=== PATIENT | female | born 1970 | race Caucasian/White ===

== ENCOUNTER 2018-05-02 18:02 | Inpatient (IN) ==
[2018-05-02 18:19] LABS: ABG Base Excess -8.9 mmol/L (-2-2); ABG PCO2 44 mmHg (38-42); ABG PO2 360 mmHg (61-120)
[2018-05-02 18:24] LABS: Baso % (Auto) 0.4 % (0.0-2.0); Eos % (Auto) 0.1 % (0.0-4.0); Hematocrit 36.7 % (35.0-46.0); Hemoglobin 10.8 gm/dL (11.6-15.3); Lymph # (Auto) 0.8 th/mm3 (1.0-4.8); Lymph % (Auto) 10.5 % (9.0-44.0); Mean Corpuscular Hemoglobin 27.8 pg (27.0-34.0); Mean Corpuscular Volume 94.4 fL (80.0-100.0); Mean Platelet Volume 8.6 fL (7.0-11.0); Mono # (Auto) 0.1 th/mm3 (0.0-0.9); Mono % (Auto) 1.8 % (0.0-8.0); Neut # (Auto) 6.6 th/mm3 (1.8-7.7); Neut % (Auto) 87.2 % (16.0-70.0); Platelet Count 331 th/mm3 (150-450); Red Blood Count 3.89 mil/mm3 (4.00-5.30); Red Cell Distribution Width 19.2 % (11.6-17.2); White Blood Count 7.6 th/mm3 (4.0-11.0)
[2018-05-02] MEDS ORDERED: Sodium Bicarbonate 8.4% Inj 50 MEQ/50 ML Syringe ONE ×2 (18:29)
[2018-05-02 18:35] LABS: Mean Corpuscular HGB Conc 29.5 % (32.0-36.0)
[2018-05-02 18:36] LABS: Activated Partial Thrombo Time 25.7 sec (23.4-31.7); INR 1.3 Ratio
[2018-05-02] MEDS ORDERED: RESP: Albuterol Concentrated 2.5 MG/0.5 ML Neb NEB ONE (18:41)
[2018-05-02 18:45] LABS: Anion Gap 20 meq/L (5-15)
[2018-05-02 18:47] LABS: Blood Urea Nitrogen 93 mg/dL (7-18); Calcium 8.5 mg/dL (8.5-10.1); Carbon Dioxide 13.7 meq/L (21.0-32.0); Chloride 86 meq/L (98-107); Glomerular Filtration Rate 3 mL/min (>89)
[2018-05-02 18:48] LABS: Creatine Kinase 65 U/L (26-192)
[2018-05-02 18:49] LABS: Glucose,Random 705 mg/dL (74-106); Potassium 8.6 meq/L (3.5-5.1); Sodium 120 meq/L (136-145)
--- NOTE | 2018-05-02 18:51 | ED ---
HPI General Chief Complaint: Cardiac Arrest/CPR Stated Complaint: unconscience Time Seen by Provider: 05/02/18 18:07 Source: EMS Mode of arrival: EMS Limitations: physical limitation History of Present Illness HPI narrative: Approximately 47-year-old female arrives post cardiac arrest. She was in asystole and given 1 epinephrine and had spontaneous return of circulation with an adequate blood pressure. She was intubated with good end- tidal CO2. It was a witnessed cardiac arrest with family performing immediate CPR prior to EMS arrival. History limited given clinical acuity Related Data Allergies Allergy/AdvReac Type Severity Reaction Status Date / Time codeine Allergy Hives Verified 05/02/18 19:45 iodine Allergy Hives Verified 05/02/18 19:45 lisinopril Allergy Hives Verified 05/02/18 19:45 Penicillins Allergy Hives Verified 05/02/18 19:45 vancomycin Allergy Hives Verified 05/02/18 19:45 Review of Systems ROS Unobtainable ROS Unobtainable: unobtainable due to endotracheal tube PMFSH History History Provided By: Wall Scraper / EMT (diabetes, renal failure) Medical History Medical History Medical history unknown (Acute) Surgical history unknown (Acute) Social History Social History Substance History: Unable to Obtain Smoking Status: Unknown if ever smoked How Often Do You Have a Drink Containing Alcohol: Unable to Obtain Recent Travel in [facility] within the Last 8 Weeks: No Recent Out of Country Travel within the Last 8 Weeks: No Immunization History Tetanus Immunization: Unable to Assess Exam Narrative Exam Narrative: GENERAL: 47 windy y/o female who appears chronically ill SKIN: Focused skin assessment warm/dry. HEAD: Normocephalic. EYES: Pupils equal 3mm. No scleral icterus. No injection or drainage. ENT: No nasal bleeding or discharge. NECK: Trachea midline. CARDIOVASCULAR: Regular rate and rhythm. RESPIRATORY: No accessory muscle use. Clear to auscultation. Breath sounds equal bilaterally. GASTROINTESTINAL: Abdomen nondistended. MUSCULOSKELETAL: No obvious deformities, right leg surgery noted NEUROLOGICAL: Unresponsive Course Reevaluation(s) Reevaluation #1: Patient had an episode of PEA arrest shortly after arrival he did she was given bicarb and calcium and epinephrine and had return of circulation. After patient was stabilized mother came to bedside and stated that patient asked for oxygen to be turned up and then went unresponsive and CPR was initiated. She confirms her past medical history and states that she is on home oxygen. She was updated about current critical condition and understands. All questions answered. Family states Dr. Kelley is her party plan sales consultant Consultations Consultation #1: dr blount agrees to admit Consultation #2: dr marsh will arrange emergent dialysis Initial Documented Vital Signs Pulse Oximetry 100 05/02/18 18:02 Last Documented Vital Signs Pulse Rate 92 H 05/02/18 19:15 Respiratory Rate 14 05/02/18 18:54 Blood Pressure 154/68 H 05/02/18 19:15 Pulse Oximetry 100 05/02/18 19:15 Critical Care Time Critical Care Time: Yes Total Critical Care Time: 60 Attestation: Aggregate critical care time was 60 minutes. Time to perform other separately billable procedures was not included in the critical care time. My time did not include minutes spent treating any other patients simultaneously or on activities that did not directly contribute to the patient's treatment. The services I provided to this patient were to treat and/or prevent clinically significant deterioration that could result in: Cardiac arrest, respiratory failure, I provided critical care services requiring my management, as noted below: Chart data review, documentation time, medication orders and management, vital sign assessments/reviewing monitor data, ordering and reviewing lab tests, ordering and interpreting/reviewing x-rays and diagnostic studies, care of the patient and discussion of the patient with the admitting physicians. Medical Decision Making MDM Narrative Medical decision making narrative: Patient arrived post asystole cardiac arrest. Shortly after arrival went into PEA. Was given 2 epinephrine, 2 calcium and 4 bicarb with return of spontaneous circulation. I stats were sent , EKG done and chest x-ray performed. ET tube in place, patient with critical hyperkalemia of 8.6. Family states patient's party plan sales consultant is Dr. Andrea Delvalle. Dr. Marsh on-call will arrange stat bedside dialysis. Medical Screen Exam Complete: Yes Emergency Medical Condition: Yes Differential Diagnosis Differential Diagnosis: Hyperkalemia, [place], PE Lab Data Lab results reviewed: Yes I reviewed the patient's lab results. Result diagrams: 05/02/18 18:08 05/02/18 18:08 Lab Results 05/02/18 05/02/18 05/02/18 Range/Units 18:08 18:08 18:08 WBC 7.6 (4.0-11.0) th/mm3 RBC 3.89 L (4.00-5.30) mil/mm3 Hgb 10.8 L (11.6-15.3) gm/dL POC Hgb (Calc) 12.9 (11.6-15.3) g/dL Hct 36.7 (35.0-46.0) % POC Hct 38.0 (35-46.0) % MCV 94.4 (80.0-100.0) fL MCH 27.8 (27.0-34.0) pg MCHC 29.5 L (32.0-36.0) % RDW 19.2 H (11.6-17.2) % Plt Count 331 (150-450) th/mm3 MPV 8.6 (7.0-11.0) fL Neut % (Auto) 87.2 H (16.0-70.0) % Lymph % (Auto) 10.5 (9.0-44.0) % Pratt % (Auto) 1.8 (0.0-8.0) % Eos % (Auto) 0.1 (0.0-4.0) % Baso % (Auto) 0.4 (0.0-2.0) % Neut # (Auto) 6.6 (1.8-7.7) th/mm3 Lymph # (Auto) 0.8 L (1.0-4.8) th/mm3 Pratt # (Auto) 0.1 (0.0-0.9) th/mm3 Eos # (Auto) 0.0 (0.0-0.4) th/mm3 Baso # (Auto) 0.0 (0.0-0.2) th/mm3 WBC Differential . Differential Comment Auto diff final PT 13.0 H (9.8-11.6) sec INR 1.3 Ratio APTT 25.7 (23.4-31.7) sec Puncture Site Patient Temperature O2 Saturation (90-100) % ABG pH (7.380-7.420) ABG pCO2 (38-42) mmHg ABG pO2 (61-120) mmHg ABG HCO3 (22-26) mmol/L ABG O2 Content (12.0-20.0) Vol % ABG Base Excess (-2-2) mmol/L ABG Methemoglobin (0-2) % Norberto Test Hemoglobin (12.0-16.0) G/DL Carboxyhemoglobin (0-4) % O2 Delivery Device Liter Flow L/M Inspired O2 % Critical Value POC Sodium 121 L* (137-144) mmol/L Sodium 120 L* (136-145) meq/L POC Potassium 8.6 H* (3.6-5.0) mmol/L Potassium 8.6 H* (3.5-5.1) meq/L POC Chloride Not Reportable Chloride 86 L (98-107) meq/L Carbon Dioxide 13.7 L (21.0-32.0) meq/L Anion Gap 20 H (5-15) meq/L POC BUN 102 H (5-21) mg/dL BUN 93 H (7-18) mg/dL Creatinine 11.06 H* (0.50-1.00) mg/dL POC Creatinine 10.7 H* (0.6-1.3) mg/dL Estimated GFR 3 L (>89) mL/min POC Glucose 695 H* (68-110) mg/dL Random Glucose 705 H* (74-106) mg/dL Lactic Acid (0.4-2.0) mmol/L Calcium 8.5 (8.5-10.1) mg/dL Magnesium (1.5-2.5) mg/dL Total Creatine Kinase 65 (26-192) U/L Troponin I Less than 0.02 L (0.02-0.05) ng/mL Serum Alcohol Less than 3 (0-5) mg/dL Blood Type Antibody Screen 05/02/18 05/02/18 05/02/18 Range/Units 18:08 18:08 18:08 WBC (4.0-11.0) th/mm3 RBC (4.00-5.30) mil/mm3 Hgb (11.6-15.3) gm/dL POC Hgb (Calc) (11.6-15.3) g/dL Hct (35.0-46.0) % POC Hct (35-46.0) % MCV (80.0-100.0) fL MCH (27.0-34.0) pg MCHC (32.0-36.0) % RDW (11.6-17.2) % Plt Count (150-450) th/mm3 MPV (7.0-11.0) fL Neut % (Auto) (16.0-70.0) % Lymph % (Auto) (9.0-44.0) % Pratt % (Auto) (0.0-8.0) % Eos % (Auto) (0.0-4.0) % Baso % (Auto) (0.0-2.0) % Neut # (Auto) (1.8-7.7) th/mm3 Lymph # (Auto) (1.0-4.8) th/mm3 Pratt # (Auto) (0.0-0.9) th/mm3 Eos # (Auto) (0.0-0.4) th/mm3 Baso # (Auto) (0.0-0.2) th/mm3 WBC Differential Differential Comment PT (9.8-11.6) sec INR Ratio APTT (23.4-31.7) sec Puncture Site Left brachial Patient Temperature 98.6 O2 Saturation 93 (90-100) % ABG pH 7.22 L* (7.380-7.420) ABG pCO2 44 H (38-42) mmHg ABG pO2 360 H (61-120) mmHg ABG HCO3 17 L (22-26) mmol/L ABG O2 Content 15.5 (12.0-20.0) Vol % ABG Base Excess -8.9 L (-2-2) mmol/L ABG Methemoglobin 0.6 (0-2) % Norberto Test Present Hemoglobin 11.2 L (12.0-16.0) G/DL Carboxyhemoglobin 6.6 H* (0-4) % O2 Delivery Device Ambu bag Liter Flow 15.00 L/M Inspired O2 100 % Critical Value Yes POC Sodium (137-144) mmol/L Sodium (136-145) meq/L POC Potassium (3.6-5.0) mmol/L Potassium (3.5-5.1) meq/L POC Chloride Chloride (98-107) meq/L Carbon Dioxide (21.0-32.0) meq/L Anion Gap (5-15) meq/L POC BUN (5-21) mg/dL BUN (7-18) mg/dL Creatinine (0.50-1.00) mg/dL POC Creatinine (0.6-1.3) mg/dL Estimated GFR (>89) mL/min POC Glucose (68-110) mg/dL Random Glucose (74-106) mg/dL Lactic Acid 5.9 H* (0.4-2.0) mmol/L Calcium (8.5-10.1) mg/dL Magnesium (1.5-2.5) mg/dL Total Creatine Kinase Cancelled (26-192) U/L Troponin I (0.02-0.05) ng/mL Serum Alcohol (0-5) mg/dL Blood Type Antibody Screen 05/02/18 05/02/18 Range/Units 18:08 18:31 WBC (4.0-11.0) th/mm3 RBC (4.00-5.30) mil/mm3 Hgb (11.6-15.3) gm/dL POC Hgb (Calc) (11.6-15.3) g/dL Hct (35.0-46.0) % POC Hct (35-46.0) % MCV (80.0-100.0) fL MCH (27.0-34.0) pg MCHC (32.0-36.0) % RDW (11.6-17.2) % Plt Count (150-450) th/mm3 MPV (7.0-11.0) fL Neut % (Auto) (16.0-70.0) % Lymph % (Auto) (9.0-44.0) % Pratt % (Auto) (0.0-8.0) % Eos % (Auto) (0.0-4.0) % Baso % (Auto) (0.0-2.0) % Neut # (Auto) (1.8-7.7) th/mm3 Lymph # (Auto) (1.0-4.8) th/mm3 Pratt # (Auto) (0.0-0.9) th/mm3 Eos # (Auto) (0.0-0.4) th/mm3 Baso # (Auto) (0.0-0.2) th/mm3 WBC Differential Differential Comment PT (9.8-11.6) sec INR Ratio APTT (23.4-31.7) sec Puncture Site Patient Temperature O2 Saturation (90-100) % ABG pH (7.380-7.420) ABG pCO2 (38-42) mmHg ABG pO2 (61-120) mmHg ABG HCO3 (22-26) mmol/L ABG O2 Content (12.0-20.0) Vol % ABG Base Excess (-2-2) mmol/L ABG Methemoglobin (0-2) % Norberto Test Hemoglobin (12.0-16.0) G/DL Carboxyhemoglobin (0-4) % O2 Delivery Device Liter Flow L/M Inspired O2 % Critical Value POC Sodium (137-144) mmol/L Sodium (136-145) meq/L POC Potassium (3.6-5.0) mmol/L Potassium (3.5-5.1) meq/L POC Chloride Chloride (98-107) meq/L Carbon Dioxide (21.0-32.0) meq/L Anion Gap (5-15) meq/L POC BUN (5-21) mg/dL BUN (7-18) mg/dL Creatinine (0.50-1.00) mg/dL POC Creatinine (0.6-1.3) mg/dL Estimated GFR (>89) mL/min POC Glucose (68-110) mg/dL Random Glucose (74-106) mg/dL Lactic Acid (0.4-2.0) mmol/L Calcium (8.5-10.1) mg/dL Magnesium 2.5 (1.5-2.5) mg/dL Total Creatine Kinase (26-192) U/L Troponin I (0.02-0.05) ng/mL Serum Alcohol (0-5) mg/dL Blood Type B Positive Antibody Screen Negative Imaging Data Attestation: I personally reviewed and interpreted this imaging study as follows : My impression: ET tube adjusted Radiologist's impression: Chest X-Ray 05/02/18 18:16 CONCLUSION: 1. ET tube is 1.5 cm above the nicola and needs withdrawn 1 cm. 2. Diffuse airspace opacities throughout both lungs. Discharge Plan Discharge Disposition Patient Disposition: 30 Still Patient Discharge Details Diagnosis: Cardiac arrest, Acute respiratory failure, Hyperkalemia Physicians Team ED Provider: Saige Rock Primary Care Provider: UNKNOWN, Attending Provider: Jeremy Blount Status ED Status: Admitted Patient
[2018-05-02] MEDS ORDERED: Gelatin 12 MM/7 MM Topical Foam TOPICAL PRN (18:59)
[2018-05-02] MEDS ORDERED: Sod Chloride 0.9% Inj 1,000 ML OTHER PRN ×2 (18:59)
[2018-05-02] MEDS ORDERED: Acetaminophen 325 MG Tablet PO PRN (18:59)
[2018-05-02] MEDS ORDERED: Albumin Human 25% Inj 100 ML IV.SIG PRN (18:59)
[2018-05-02] MEDS ORDERED: Heparin 10,000 UNITS/10 ML Vial (for IV use) OTHER PRN (18:59)
[2018-05-02] MEDS ORDERED: Sod Chloride 0.9% Inj 1,000 ML IV.CONT PRN (18:59)
[2018-05-02] MEDS ORDERED: Bisacodyl 10 MG Supp RECTAL PRN (19:27)
--- NOTE | 2018-05-02 19:32 | P.HPCC ---
History of Present Illness History of Present Illness: Approximately 47-year-old unfortunate female presents status post cardiac arrest. She was in asystole and given 1 epinephrine and had spontaneous return of circulation with an adequate blood pressure. She was intubated with good end -tidal CO2. It was a witnessed cardiac arrest with family performing immediate CPR prior to EMS arrival. History limited given clinical acuity Inpatient Certification: I certify that the inpatient services were ordered in accordance with Medicare regulations governing the order. This includes certification that hospital inpatient services are reasonable and necessary and in the case of services not specified as inpatient-only under 42 CFR 419.22(n), that they are appropriately provided as inpatient services in accordance to with the 2-midnight benchmark under 43 CFR 412.3(e) Estimated Total Length of Stay (Days): 5 Plans for Post Hospital Care: Not yet determined Review of Systems unobtainable due to endotracheal tube PMFSH - History History Provided By: Director Of Rotc / EMT (diabetes, renal failure) - Medical History Medical History: Medical History (Last Reviewed 05/02/18 @ 20:48 by Mag Low) Diabetes (Acute) Hemodialysis access site with arteriovenous graft (Acute) End stage renal disease on dialysis (Acute) Coronary artery disease History of right below knee amputation Peripheral vascular disease Medical history unknown Surgical history unknown - Tobacco History Smoking Status: Unknown if ever smoked - Alcohol History How Often Do You Have a Drink Containing Alcohol: Unable to Obtain - Substance Use History Substance History: Unable to Obtain - Travel History Recent Travel in the [place] Within the Last 8 Weeks: No Recent Travel Out of the Country Within the Last 8 Weeks: No - Immunization History Tetanus Immunization: Unable to Assess Medications and Allergies Active Medications: Active Medications Acetaminophen (Tylenol) 650 mg PO UNSCH PRN PRN Reason: SEE LABEL COMMENTS Acetaminophen (Tylenol) 650 mg PO Q6H PRN PRN Reason: PAIN 1-10 AND/OR FEVER >101F Al Hydroxide/Mg Hydroxide (Milk Of Magnesia Liq) 30 ml PO Q12H PRN PRN Reason: Mild Constipation Albuterol (Duoneb Neb (Prn)) 1 ampul NEB Q2HR NEB PRN PRN Reason: WHEEZING Bisacodyl (Dulcolax Supp) 10 mg RECTAL DAILY PRN PRN Reason: SEVERE CONSITIPATION Chlorhexidine Gluconate (Chlorhexidine 2% Cloth) 3 pack TOPICAL DAILY@0400 [facility] Stop: 05/08/18 03:59 Chlorhexidine Gluconate (Chlorhexidine 2% Cloth) 3 pack TOPICAL DAILY@0400 PRN PRN Reason: Extra cloth needed Stop: 05/08/18 03:59 Clonidine HCl (Catapres) 0.1 mg PO UNSCH PRN PRN Reason: SEE LABEL COMMENTS Diphenhydramine HCl (Benadryl) 25 mg PO UNSCH PRN PRN Reason: SEE LABEL COMMENTS Epoetin Xavier (Epogen Inj) 4,000 unit IV.PUSH UNSCH PRN PRN Reason: SEE LABEL COMMENTS Famotidine (Pepcid Pf Inj) 20 mg IV.PUSH Q12HR NURY Gelatin (Gelfoam 12 Mm/7 Mm Topical) 1 foam TOPICAL PRN PRN PRN Reason: help stop bleeding from site Gentamicin Sulfate (Gentamicin Inj) 20 mg OTHER WITH DIALYSIS PRN PRN Reason: Dwell Gentamycin Lock Heparin Sodium (Porcine) (Heparin Inj) 8,000 units OTHER WITH DIALYSIS PRN PRN Reason: for machine prime Heparin Sodium (Porcine) (Heparin Inj) 1,000 units OTHER WITH DIALYSIS PRN PRN Reason: Dwell Heparin to Fill Catheter Heparin Sodium (Porcine) (Heparin Inj) 5,000 units SQ Q8H NURY Hydromorphone HCl (Dilaudid Pf Inj) 1 mg IV.PUSH Q4H PRN PRN Reason: PAIN SCALE 6 TO 10 Albumin Human (Flexbumin 25% Inj) 100 mls @ 60 mls/hr IV.SIG WITH DIALYSIS PRN PRN Reason: hypotension / volume replace Sodium Chloride (Ns Inj) 1,000 mls @ 0 mls/hr OTHER .Q0M PRN PRN Reason: for prime and rinse back Sodium Chloride (Ns Inj) 1,000 mls @ 200 mls/hr OTHER .Q5H PRN PRN Reason: for dialyzer flush PRN Sodium Chloride (Ns Inj) 1,000 mls @ 0 mls/hr IV.CONT .Q0M PRN PRN Reason: hypotension / volume replace Sodium Chloride (Ns Inj) 1,000 mls @ 84 mls/hr IV.CONT .[id number] NURY Lactulose (Lactulose Liq) 30 ml PO DAILY PRN PRN Reason: SEVERE CONSITIPATION Mannitol (Mannitol Inj) 12.5 gm IV.PUSH UNSCH PRN PRN Reason: hypotension / volume replace Midazolam HCl (Versed Inj) 2 mg IV.PUSH Q1H PRN PRN Reason: SEDATION Nitroglycerin (Nitrostat Sl) 0.4 mg SL Q5M PRN PRN Reason: CHEST PAIN Ondansetron HCl (Zofran Inj) 4 mg IV.PUSH UNSCH PRN PRN Reason: NAUSEA OR VOMITING Ondansetron HCl (Zofran Inj) 4 mg IV.PUSH Q6H PRN PRN Reason: NAUSEA OR VOMITING Senna/Docusate Sodium (Fabienne-Colace) 1 tab PO BID NURY Sennosides (Senokot) 17.2 mg PO Q12H PRN PRN Reason: Moderate Constipation Sodium Chloride (Ns Flush) 2 ml IV.FLUSH PRN PRN PRN Reason: FLUSH AFTER USING IV ACCESS Sodium Chloride (Ns Flush) 5 ml IV.FLUSH PRN PRN PRN Reason: flush each lumen during HD Sodium Chloride (Ns Flush) 2 ml IV.FLUSH BID NURY Sodium Chloride (Ns Flush) 2 ml IV.FLUSH PRN PRN PRN Reason: FLUSH AFTER USING IV ACCESS Allergies Allergy/AdvReac Type Severity Reaction Status Date / Time codeine Allergy Hives Verified 05/02/18 19:45 iodine Allergy Hives Verified 05/02/18 19:45 lisinopril Allergy Hives Verified 05/02/18 19:45 Penicillins Allergy Hives Verified 05/02/18 19:45 vancomycin Allergy Hives Verified 05/02/18 19:45 Results - Labs CBC & Chem 7: 05/03/18 04:12 05/03/18 04:12 Labs: Short CBC 05/02/18 Range/Units 18:08 WBC 7.6 (4.0-11.0) th/mm3 Hgb 10.8 L (11.6-15.3) gm/dL Hct 36.7 (35.0-46.0) % Plt Count 331 (150-450) th/mm3 BMP 05/02/18 18:08 Sodium 120 L* Potassium 8.6 H* Chloride 86 L Carbon Dioxide 13.7 L BUN 93 H Creatinine 11.06 H* Calcium 8.5 Cardiac Enzymes 05/02/18 05/02/18 Range/Units 18:08 18:08 Total Creatine Kinase 65 Cancelled (26-192) U/L Troponin I Less than 0.02 L (0.02-0.05) ng/mL Exam Vital signs: Vital Signs 05/02/18 18:02 05/02/18 18:12 05/02/18 18:13 Pulse Rate 77 95 H Respiratory Rate 14 14 Blood Pressure 157/67 H Pulse Oximetry 100 100 100 05/02/18 18:25 05/02/18 18:54 Pulse Rate 82 Respiratory Rate 19 14 Blood Pressure Pulse Oximetry 100 Intake & Output 05/02/18 05/02/18 05/03/18 06:59 18:59 06:59 Weight 122.47 kg - Constitutional severe distress Comments: Partial facial seizures versus myoclonic jerks, unresponsive to verbal or painful stimuli - Routine HEENT Exam Head: Present: normocephalic, atraumatic Eye: Present: PERRL, normal accommodation ENT: Present: mucous membranes moist - Routine Neck Exam Present: supple, full ROM. Absent: JVD, carotid bruit - Routine Chest/Breast/Axilla Exam Chest wall: Absent: tenderness - Routine Respiratory Exam Present: patient mechanically ventilated. Absent: rhonchi, stridor, wheezes - Routine Cardiovascular Exam Present: RRR, S1, S2 - Routine Abdominal Exam Present: soft, normoactive bowel sounds. Absent: tenderness, distended - Routine Extremities Exam Absent: cyanosis, clubbing, edema - Routine Skin Exam Present: intact. Absent: cyanosis, erythema - Routine Neurological Exam Patient is comatose with myoclonic jerks, extending to painful stimuli in upper extremities Septic Shock Reassessment Septic shock perfusion: reassessment completed Caprini VTE Risk Assessment Caprini VTE Risk Assessment: Moderate/High Risk (score >= 2) Caprini Risk Assessment Model: Point Value = 1 Point Value = 2 Point Value = 3 Point Value = 5 Age 41-60 Minor surgery BMI > 25 kg/m2 Swollen legs Varicose veins or History of unexplained or recurrent spontaneous Oral contraceptives or hormone replacement Sepsis (< 1 month) Serious lung disease, including pneumonia (< 1 month) Abnormal pulmonary function Acute myocardial infarction Congestive heart failure (< 1 month) History of inflammatory bowel disease Medical patient at bed rest Age 61-74 Arthroscopic surgery Major open surgery (> 45 min) Laparoscopic surgery (> 45 min) Malignancy Confined to bed (> 72 hours) Immobilizing plaster cast Central venous access Age >= 75 History of VTE Family history of VTE Factor V Leiden Prothrombin [id number] Lupus anticoagulant Anticardiolipin antibodies Elevated serum homocysteine Heparin-induced thrombocytopenia Other congenital or acquired thrombophilia Stroke (< 1 month) Elective arthroplasty Hip, pelvis, or leg fracture Acute spinal cord injury (< 1 month) Prophylaxis Regimen: Total Risk Factor Score Risk Level Prophylaxis Regimen 0-1 Low Early ambulation 2 Moderate Order ONE of the following: *Sequential Compression Device (SCD) *Heparin 5000 units SQ BID 3-4 Higher Order ONE of the following medications: *Heparin 5000 units SQ TID *Enoxaparin/Lovenox 40 mg SQ daily (WT < 150 kg, CrCl > 30 mL/min) *Enoxaparin/Lovenox 30 mg SQ daily (WT < 150 kg, CrCl > 10-29 mL/min) *Enoxaparin/Lovenox 30 mg SQ BID (WT < 150 kg, CrCl > 30 mL/min) AND/OR *Sequential Compression Device (SCD) 5 or more Highest Order ONE of the following medications: *Heparin 5000 units SQ TID (Preferred with Epidurals) *Enoxaparin/Lovenox 40 mg SQ daily (WT < 150 kg, CrCl > 30 mL/min) *Enoxaparin/Lovenox 30 mg SQ daily (WT < 150 kg, CrCl > 10-29 mL/min) *Enoxaparin/Lovenox 30 mg SQ BID (WT < 150 kg, CrCl > 30 mL/min) AND *Sequential Compression Device (SCD) Assessment and Plan - Assessment and Plan Plan: Respiratory failure -Intubated for an airway protection -No weaning until neurologically improve -Vent bundle -DuoNeb scheduled and as needed Cardiac arrest -Unclear etiology -Series of troponins and EKGs to rule out acute coronary syndrome -Monitor for normothermia -Patient in need of emergent hemodialysis, benefit of therapeutic hypothermia and hypothermia catheter placement inferior to urgency of hemodialysis End-stage renal disease -Hemodialysis per nephrology Diabetes mellitus -Insulin drip Altered mental status -Status post cardiac arrest -Clinical signs of anoxic brain damage -EEG to rule out seizure -Neurology evaluation -Palliative care consult DVT GI prophylaxis -Teds SCDs -Subcu heparin -Pepcid 35 minutes of critical care
[2018-05-02] MEDS: Heparin 10,000 UNITS/10 ML Vial (for IV use) OTHER PRN (19:35)
--- NOTE | 2018-05-02 19:38 | XR ---
EXAM DATE: 05/02/2018 6:42 PM EST AGE/SEX: 89 years / Female INDICATIONS: Post intubation. Cardiac arrest. Post compressions. CLINICAL DATA: This is the patient's initial encounter. Patient reports that signs and symptoms have been present for 1 day and indicates a pain score of Nonresponsive. MEDICAL/SURGICAL HISTORY: Non-responsive. Non-responsive. COMPARISON: No prior exams available for comparison. FINDINGS: The patient is rotated toward the right. ET tube tip is 1.5 cm above the nicola. Large bore left inte rnal jugular catheter tip projects within the right atrium. Moderate cardiomegaly. Scattered acinar o pacities throughout both lungs. Both hemidiaphragms remain discernible. Right subclavian stent. CONCLUSION: 1. ET tube is 1.5 cm above the nicola and needs withdrawn 1 cm. 2. Diffuse airspace opacities throughout both lungs. Electronically signed by: Ameya Martinez MD 05/02/2018 7:37 PM EST
--- NOTE | 2018-05-02 20:30 | P.CONNP ---
History of Present Illness Service: Nephrology Consult date: 05/02/18 Requesting Physician: Saige Rock Reason for Consult: ESRD with hyperkalemia Primary Care Provider: UNKNOWN History of Present Illness: Patient is a 48-year-old lady ESRD, diabetes, hypertension, peripheral vascular disease, right below-knee amputation, she missed her dialysis on Tuesday due to diarrhea, today she has a procedure in right AV graft and came home she did not feel well past found and found to have cardiac arrest, he was brought in and CPR was performed along with treatment for hyperkalemia, insulin, sodium bicarbonate and found to have severe acidosis as well patient was intubated. Patient has a potassium of 8.6, blood glucose of 705. Review of Systems unobtainable due to endotracheal tube, unobtainable due to mental status PMFSH - History History Provided By: Quality Checker / EMT (diabetes, renal failure) - Medical History Medical History: Medical History (Last Updated 05/02/18 @ 20:27 by Allyson Marsh MD) Diabetes (Acute) Hemodialysis access site with arteriovenous graft (Acute) End stage renal disease on dialysis (Acute) Coronary artery disease History of right below knee amputation Peripheral vascular disease Medical history unknown Surgical history unknown - Social History I have reviewed the patient's Social History: Yes - Tobacco History Smoking Status: Unknown if ever smoked - Alcohol History How Often Do You Have a Drink Containing Alcohol: Unable to Obtain - Substance Use History Substance History: Unable to Obtain - Travel History Recent Travel in the [place] Within the Last 8 Weeks: No Recent Travel Out of the Country Within the Last 8 Weeks: No - Immunization History Tetanus Immunization: Unable to Assess Medications and Allergies Active Medications: Active Medications Acetaminophen (Tylenol) 650 mg PO UNSCH PRN PRN Reason: SEE LABEL COMMENTS Acetaminophen (Tylenol) 650 mg PO Q6H PRN PRN Reason: PAIN 1-10 AND/OR FEVER >101F Al Hydroxide/Mg Hydroxide (Milk Of Magnesia Liq) 30 ml PO Q12H PRN PRN Reason: Mild Constipation Albuterol (Duoneb Neb (Prn)) 1 ampul NEB Q2HR NEB PRN PRN Reason: WHEEZING Bisacodyl (Dulcolax Supp) 10 mg RECTAL DAILY PRN PRN Reason: SEVERE CONSITIPATION Chlorhexidine Gluconate (Chlorhexidine 2% Cloth) 3 pack TOPICAL DAILY@0400 [facility] Stop: 05/08/18 03:59 Chlorhexidine Gluconate (Chlorhexidine 2% Cloth) 3 pack TOPICAL DAILY@0400 PRN PRN Reason: Extra cloth needed Stop: 05/08/18 03:59 Chlorhexidine Gluconate (Peridex 0.12% Oral Kit) 15 ml OROPHARYNG BID@0800, 2000 [facility] Clonidine HCl (Catapres) 0.1 mg PO UNSCH PRN PRN Reason: SEE LABEL COMMENTS Diphenhydramine HCl (Benadryl) 25 mg PO UNSCH PRN PRN Reason: SEE LABEL COMMENTS Epoetin Xavier (Epogen Inj) 4,000 unit IV.PUSH UNSCH PRN PRN Reason: SEE LABEL COMMENTS Famotidine (Pepcid Pf Inj) 10 mg IV.PUSH Q12HR [facility] Gelatin (Gelfoam 12 Mm/7 Mm Topical) 1 foam TOPICAL PRN PRN PRN Reason: help stop bleeding from site Gentamicin Sulfate (Gentamicin Inj) 20 mg OTHER WITH DIALYSIS PRN PRN Reason: Dwell Gentamycin Lock Last Admin: 05/02/18 19:35 Dose: 20 mg Heparin Sodium (Porcine) (Heparin Inj) 8,000 units OTHER WITH DIALYSIS PRN PRN Reason: for machine prime Heparin Sodium (Porcine) (Heparin Inj) 1,000 units OTHER WITH DIALYSIS PRN PRN Reason: Dwell Heparin to Fill Catheter Last Admin: 05/02/18 19:35 Dose: 1,000 units Heparin Sodium (Porcine) (Heparin Inj) 5,000 units SQ Q8H NURY Hydromorphone HCl (Dilaudid Pf Inj) 1 mg IV.PUSH Q4H PRN PRN Reason: PAIN SCALE 6 TO 10 Albumin Human (Flexbumin 25% Inj) 100 mls @ 60 mls/hr IV.SIG WITH DIALYSIS PRN PRN Reason: hypotension / volume replace Sodium Chloride (Ns Inj) 1,000 mls @ 0 mls/hr OTHER .Q0M PRN PRN Reason: for prime and rinse back Sodium Chloride (Ns Inj) 1,000 mls @ 200 mls/hr OTHER .Q5H PRN PRN Reason: for dialyzer flush PRN Sodium Chloride (Ns Inj) 1,000 mls @ 0 mls/hr IV.CONT .Q0M PRN PRN Reason: hypotension / volume replace Sodium Chloride (Ns Inj) 1,000 mls @ 84 mls/hr IV.CONT .[id number] [facility] Lactulose (Lactulose Liq) 30 ml PO DAILY PRN PRN Reason: SEVERE CONSITIPATION Mannitol (Mannitol Inj) 12.5 gm IV.PUSH UNSCH PRN PRN Reason: hypotension / volume replace Midazolam HCl (Versed Inj) 2 mg IV.PUSH Q1H PRN PRN Reason: SEDATION Miscellaneous Medication () 1 each OROPHARYNG 0000,0400,1200,1600 NURY Nitroglycerin (Nitrostat Sl) 0.4 mg SL Q5M PRN PRN Reason: CHEST PAIN Ondansetron HCl (Zofran Inj) 4 mg IV.PUSH UNSCH PRN PRN Reason: NAUSEA OR VOMITING Ondansetron HCl (Zofran Inj) 4 mg IV.PUSH Q6H PRN PRN Reason: NAUSEA OR VOMITING Senna/Docusate Sodium (Fabienne-Colace) 1 tab PO BID [facility] Sennosides (Senokot) 17.2 mg PO Q12H PRN PRN Reason: Moderate Constipation Sodium Chloride (Ns Flush) 2 ml IV.FLUSH PRN PRN PRN Reason: FLUSH AFTER USING IV ACCESS Sodium Chloride (Ns Flush) 5 ml IV.FLUSH PRN PRN PRN Reason: flush each lumen during HD Sodium Chloride (Ns Flush) 2 ml IV.FLUSH BID NURY Sodium Chloride (Ns Flush) 2 ml IV.FLUSH PRN PRN PRN Reason: FLUSH AFTER USING IV ACCESS Allergies Allergy/AdvReac Type Severity Reaction Status Date / Time codeine Allergy Hives Verified 05/02/18 19:45 iodine Allergy Hives Verified 05/02/18 19:45 lisinopril Allergy Hives Verified 05/02/18 19:45 Penicillins Allergy Hives Verified 05/02/18 19:45 vancomycin Allergy Hives Verified 05/02/18 19:45 Exam Vital signs: Vital Signs 05/02/18 18:02 05/02/18 18:12 05/02/18 18:13 Pulse Rate 77 95 H Respiratory Rate 14 14 Blood Pressure 157/67 H Pulse Oximetry 100 100 100 05/02/18 18:15 05/02/18 18:25 05/02/18 18:30 Pulse Rate 96 H 66 Respiratory Rate 19 Blood Pressure 157/67 H 157/69 H Pulse Oximetry 100 100 100 05/02/18 18:45 05/02/18 18:54 05/02/18 19:00 Pulse Rate 84 82 80 Respiratory Rate 14 Blood Pressure 168/70 H 165/70 H Pulse Oximetry 100 100 05/02/18 19:15 Pulse Rate 92 H Respiratory Rate Blood Pressure 154/68 H Pulse Oximetry 100 Intake & Output 05/02/18 05/02/18 05/03/18 06:59 18:59 06:59 Weight 122.47 kg Narrative: GENERAL: Well-nourished, well-developed intubated patient. SKIN: Warm and dry. HEAD: Normocephalic. EYES: No scleral icterus. No injection or drainage. NECK: Supple, intubated CARDIOVASCULAR: S1-S2 2/6 systolic murmur RESPIRATORY: Breath sounds equal bilaterally. No accessory muscle use. GASTROINTESTINAL: Abdomen soft, non-tender, nondistended. EXTREMITIES: Right below-knee amputation, poor pulses on the left side NEUROLOGICAL: Obtunded Results - Lab Results 05/03/18 04:12 05/03/18 04:12 Most recent lab results ABG pH 7.22 (7.380-7.420) L* 05/02/18 18:08 ABG pCO2 44 mmHg (38-42) H 05/02/18 18:08 ABG pO2 360 mmHg (61-120) H 05/02/18 18:08 ABG HCO3 17 mmol/L (22-26) L 05/02/18 18:08 Calcium 8.5 mg/dL (8.5-10.1) 05/02/18 18:08 Magnesium 2.5 mg/dL (1.5-2.5) 05/02/18 18:08 Assessment and Plan - Assessment (1) End stage renal disease on dialysis Code(s): N18.6 - End stage renal disease; Z99.2 - Dependence on renal dialysis Status: Acute (5) Diabetes Code(s): E11.9 - Type 2 diabetes mellitus without complications Status: Acute - Plan Patient is seen during emergent hemodialysis on 1K bath ultrafiltration as tolerated we will continue to monitor progress during tonight Next dialysis tomorrow Patient critically ill Acidotic and hyperkalemia being treated with hemodialysis Continue supportive care Prognosis is guarded
[2018-05-02] MEDS: Sod Chloride 0.9% Inj 1,000 ML IV.CONT SCH (21:17)
[2018-05-02 21:53] LABS: Hepatitits B Surface Antigen Nonreactive (Nonreactive)
[2018-05-02] MEDS: Heparin - SQ 10,000 UNITS/ML Vial SQ SCH (22:00)
[2018-05-02 22:25] LABS: Hepatitis A IgM Antibody Nonreactive (Nonreactive)
[2018-05-03] MEDS: Famotidine PF Inj 20 MG/2 ML Vial IV.PUSH SCH ×3 (01:02→22:51)
[2018-05-03] MEDS: Senna/Docusate Sodium 8.6/50 MG Tablet PO SCH ×3 (01:02→22:52)
[2018-05-03] MEDS: Oral Hygiene Kit OROPHARYNG SCH ×4 (01:03→17:33)
[2018-05-03] MEDS: Chlorhexidine 0.12% Oral Kit 15 ML UDC OROPHARYNG SCH ×3 (01:03→22:51)
[2018-05-03] MEDS ORDERED: Insulin Regular (For Infusion) 100 UNIT in Sodium Chlor 0.9% Inj 99 ML IV.CONT PRN (03:42)
[2018-05-03] MEDS ORDERED: Dextrose 50% in Water 50 ML Vial IV.PUSH PRN (03:42)
[2018-05-03] MEDS ORDERED: Chlorhexidine Gluconate 2% 1 Pack (2 Cloths) TOPICAL PRN (04:00)
[2018-05-03] MEDS: Heparin - SQ 10,000 UNITS/ML Vial SQ SCH ×3 (04:16→22:50)
[2018-05-03] MEDS: Chlorhexidine Gluconate 2% 1 Pack (2 Cloths) TOPICAL SCH (04:17)
[2018-05-03 04:30] LABS: Baso % (Auto) 0.1 % (0.0-2.0); Hematocrit 31.6 % (35.0-46.0); Lymph # (Auto) 0.5 th/mm3 (1.0-4.8); Lymph % (Auto) 3.2 % (9.0-44.0); Mean Corpuscular HGB Conc 31.8 % (32.0-36.0); Mean Corpuscular Hemoglobin 27.3 pg (27.0-34.0); Mean Corpuscular Volume 85.8 fL (80.0-100.0); Mean Platelet Volume 7.9 fL (7.0-11.0); Mono # (Auto) 0.9 th/mm3 (0.0-0.9); Mono % (Auto) 6.3 % (0.0-8.0); Neut # (Auto) 13.1 th/mm3 (1.8-7.7); Neut % (Auto) 90.4 % (16.0-70.0); Platelet Count 292 th/mm3 (150-450); Red Blood Count 3.68 mil/mm3 (4.00-5.30); Red Cell Distribution Width 18.6 % (11.6-17.2); White Blood Count 14.5 th/mm3 (4.0-11.0)
[2018-05-03] MEDS ORDERED: Sodium Bicarbonate 8.4% Inj 50 MEQ/50 ML Syringe IV.CONT ONE (05:00)
[2018-05-03] MEDS ORDERED: Calcium Chloride Inj 1 GM/10 ML Syringe IV.CONT ONE (05:00)
[2018-05-03 05:05] LABS: Alanine Aminotransferase 14 U/L (10-53); Albumin 3.1 g/dL (3.4-5.0); Alkaline Phosphatase 163 U/L (45-117); Anion Gap 21 meq/L (5-15); Aspartate Aminotransferase 17 U/L (15-37); Blood Urea Nitrogen 63 mg/dL (7-18); Carbon Dioxide 20.1 meq/L (21.0-32.0); Chloride 95 meq/L (98-107); Glomerular Filtration Rate 4 mL/min (>89); Glucose,Random 412 mg/dL (74-106); Magnesium 2.1 mg/dL (1.5-2.5); Phosphorus 8.9 mg/dL (2.5-4.9); Potassium 5.1 meq/L (3.5-5.1); Sodium 136 meq/L (136-145); Total Protein 8.3 g/dL (6.4-8.2); Troponin I 0.24 ng/mL (0.02-0.05)
--- NOTE | 2018-05-03 08:35 | ECG ---
Date Performed: 05/03/2018 Time Performed: 01:43:14 PTAGE: 89 years EKG: Sinus rhythm . Possible right atrial abnormality Lateral ST changes are nonspecific Borderline ECG NO PREVIOUS TRACING DOCTOR: Carroll Crowell Interpretating Date/Time 05/03/2018 08:33:05
[2018-05-03] MEDS: Sod Chloride 0.9% Inj 1,000 ML IV.CONT SCH (09:04)
[2018-05-03] MEDS: Acetaminophen 325 MG Tablet PO PRN ×2 (09:21→23:13)
--- NOTE | 2018-05-03 11:10 | P.PNNP ---
Subjective Interval history: Patient remains critically ill, intubated, opens eyes, pupils are reactive to light, she is withdrawing as well EEG being done Physical Exam Vital signs: Vital Signs 05/02/18 18:02 05/02/18 18:12 05/02/18 18:13 Temperature Pulse Rate 77 95 H Respiratory Rate 14 14 Blood Pressure 157/67 H Pulse Oximetry 100 100 100 05/02/18 18:15 05/02/18 18:25 05/02/18 18:30 Temperature Pulse Rate 96 H 66 Respiratory Rate 19 Blood Pressure 157/67 H 157/69 H Pulse Oximetry 100 100 100 05/02/18 18:45 05/02/18 18:54 05/02/18 19:00 Temperature Pulse Rate 84 82 80 Respiratory Rate 14 Blood Pressure 168/70 H 165/70 H Pulse Oximetry 100 100 05/02/18 19:15 05/02/18 19:45 05/02/18 20:00 Temperature Pulse Rate 92 H 88 Respiratory Rate 14 14 Blood Pressure 154/68 H 162/70 H Pulse Oximetry 100 100 100 05/02/18 20:49 05/02/18 22:00 05/02/18 22:14 Temperature Pulse Rate 88 98 H 83 Respiratory Rate 14 Blood Pressure 166/73 H Pulse Oximetry 05/02/18 22:16 05/02/18 22:18 05/02/18 22:21 Temperature Pulse Rate 83 Respiratory Rate 14 14 Blood Pressure 152/65 H Pulse Oximetry 100 100 100 05/02/18 22:37 05/02/18 22:45 05/02/18 23:00 Temperature Pulse Rate 85 86 84 Respiratory Rate 19 18 15 Blood Pressure 137/62 140/65 142/65 H Pulse Oximetry 100 99 100 05/02/18 23:15 05/02/18 23:30 05/02/18 23:50 Temperature Pulse Rate 86 89 91 H Respiratory Rate 20 20 13 Blood Pressure 160/83 H 153/71 H 143/65 H Pulse Oximetry 100 100 100 05/03/18 00:00 05/03/18 00:15 05/03/18 00:16 Temperature 98.2 F Pulse Rate 92 H 93 H Respiratory Rate 16 18 19 Blood Pressure 144/64 H 136/60 Pulse Oximetry 100 100 98 05/03/18 00:30 05/03/18 00:45 05/03/18 01:00 Temperature Pulse Rate 94 H 96 H 97 H Respiratory Rate 18 20 21 Blood Pressure 136/60 139/62 169/68 H Pulse Oximetry 100 100 100 05/03/18 01:15 05/03/18 01:30 05/03/18 01:45 Temperature Pulse Rate 97 H 98 H 99 H Respiratory Rate 17 20 20 Blood Pressure 144/62 H 149/70 H 170/63 H Pulse Oximetry 99 99 100 05/03/18 02:00 05/03/18 02:15 05/03/18 02:17 Temperature Pulse Rate 99 H 98 H 99 H Respiratory Rate 20 20 18 Blood Pressure 138/65 93/63 L 152/58 H Pulse Oximetry 100 100 100 05/03/18 02:36 05/03/18 03:00 05/03/18 03:06 Temperature Pulse Rate 100 H 100 H 102 H Respiratory Rate 19 20 20 Blood Pressure 152/97 H 130/71 Pulse Oximetry 100 100 100 05/03/18 03:36 05/03/18 04:00 05/03/18 04:06 Temperature 99.8 F H Pulse Rate 102 H 102 H 104 H Respiratory Rate 18 18 21 Blood Pressure 148/63 H 150/60 H 150/60 H Pulse Oximetry 100 100 97 05/03/18 04:36 05/03/18 04:43 05/03/18 05:00 Temperature Pulse Rate 102 H 104 H Respiratory Rate 19 19 21 Blood Pressure 163/69 H Pulse Oximetry 100 99 99 05/03/18 05:06 05/03/18 05:36 05/03/18 06:00 Temperature Pulse Rate 105 H 103 H 101 H Respiratory Rate 20 19 19 Blood Pressure 147/95 H 147/65 H Pulse Oximetry 99 99 99 05/03/18 06:06 05/03/18 06:36 05/03/18 07:00 Temperature Pulse Rate 101 H 100 H 100 H Respiratory Rate 18 19 18 Blood Pressure 152/63 H 159/67 H Pulse Oximetry 99 98 99 05/03/18 07:06 05/03/18 07:36 05/03/18 08:00 Temperature Pulse Rate 99 H 99 H 98 H Respiratory Rate 18 18 17 Blood Pressure 156/65 H 158/70 H Pulse Oximetry 99 99 99 05/03/18 08:06 05/03/18 08:36 05/03/18 09:00 Temperature 101.3 F H Pulse Rate 98 H 98 H 97 H Respiratory Rate 17 16 14 Blood Pressure 147/64 H 142/67 H Pulse Oximetry 99 99 99 05/03/18 09:06 05/03/18 09:08 05/03/18 09:36 Temperature Pulse Rate 98 H 97 H Respiratory Rate 15 16 15 Blood Pressure 153/65 H 156/66 H Pulse Oximetry 99 99 99 05/03/18 10:00 05/03/18 10:06 Temperature Pulse Rate 98 H 98 H Respiratory Rate 12 13 Blood Pressure 168/70 H Pulse Oximetry 100 100 Intake & Output 05/02/18 05/03/18 05/03/18 18:59 06:59 18:59 Intake Total 110 / 110 1084 / 1084 Output Total 2600 / 2600 Balance -2490 / -2490 1084 / 1084 Weight 122.47 kg 122.47 kg Intake: IV 110 / 110 1084 / 1084 NS Inj 1,000 ML @ 84 mls/hr IV. 1084 / 1084 CONT .[id number] NURY Rx#:[id number] Keppra Inj 1,000 MG In NS Inj 110 / 110 100 ML @ 400 mls/hr IV.SIG Q12H NURY Rx#:[id number] Output: Hemodialysis Amount 2500 / 2500 Urine Amount (Catheter) 0 / 0 Indwelling Urethral Catheter 0 / 0 Gastric Drainage 100 / 100 Oral 100 / 100 Narrative: GENERAL: Well-nourished, well-developed intubated patient. SKIN: Warm and dry. HEAD: Normocephalic. EYES: No scleral icterus. No injection or drainage. NECK: Supple, trachea midline. No JVD or lymphadenopathy. CARDIOVASCULAR: Regular rate and rhythm without murmurs, gallops, or rubs. RESPIRATORY: Breath sounds coarse breath sounds and bilateral rhonchi. GASTROINTESTINAL: Abdomen soft, non-tender, nondistended. 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
--- NOTE | 2018-05-03 11:26 | P.DIET ---
Nutritional Evaluation Type of nutrition evaluation: initial Nutrition consult regarding: Tube Feeding Objective - Diagnosis Cardiac Arrest, Hyperkalemia - Objective Part of Body Amputated: Right below knee (6%) Body Mass Index: 49.4 % IBW: 259 (IBW = 104#) Body Weight Used for Calculations: Upper end of IBW (52 kg) Energy Needs - Lower Range (kCal/kg): 30 Energy Needs - Upper Range (kCal/kg): 35 Lower Limit kCal/kg (kCals): 1,560 Upper Limit kCal/kg (kCals): 1,820 Lower Limit Protein Factor (Grams per Kg): 1.2 Upper Limit Protein Factor (Grams per Kg): 1.5 Lower Protein Needs (Protein): 62 Upper Protein Needs (Protein): 78 Dietitian Reviewed in Medical Record: Curent medications, Intake & Output, Labs , Medical history, Tube feeding Diet Order: NPO Objective Comments: Hx includes ESRD on HD Assessment Assessment: Pt is at high nutrition risk 2' to her need for TFing. Current order is for Nepro @ 30 mls/hr. To meet estimated needs with Nepro, recommend goal rate of 40 mls/hr to provide 1728 kcals, 78 gms protein and 698 mls of free water. Recommendations: Nepro @ 40 mls/hr goal Dietitian to Monitor: Lab values, Intake & Output, Tube feeding tolerance, Weight change, Medical course
--- NOTE | 2018-05-03 11:27 | P.CONPAL ---
Consult Service: Palliative Care Requesting Physician: Jeremy Blount Reason for Consult: a. To assist with evaluation and management of symptoms including: pain. b. To assist medical decision maker(s) with: better understanding of current medical conditions; weighing benefits/burdens of medical treatment options; making medical treatment decisions. Primary Care Provider: UNKNOWN History of Present Illness History of Present Illness: Sarah Frazier is an approximate 47 year old female with past medical history of diabetes, end stage renal disease on hemodialysis (M,W,F), coronary artery disease, PVD and right below the knee amputation. Patient presented to [facility] Emergency department after she suffered a witnessed cardiac arrest, family started CPR prior to EMS arrival. Upon EMS arrival patient was found in asystole, was given epi with return of spontaneous circulation. Initial ER findings: * VS : Pulse 92, respiration 14, BP 154/68 * WBC 7.6, hemoglobin 10.8, hematocrit 36.7, platelet count 331, neutrophil 87.2 % * Sodium 120, potassium 8.6, chloride 86, BUN 93, creatinine 11.06, GFR 3, glucose 705 * PT 13, INR 1.3, PTT 25.7 * Hepatitis A nonreactive, hepatitis B antigen and core IgM nonreactive, hepatitis C IgG antibody reactive * Lactic acid 5.9 * Total creatine kinase 65 * Troponin less than 0.02 * Serum alcohol less than 3 * Chest x-ray: Diffuse airspace opacities throughout both lungs * EKG: Sinus rhythm with sinus arrhythmia, incomplete right bundle branch block , right ventricular hypertrophy Patient was admitted post cardiac arrest, respiratory failure intubated for airway protection. Nephrology, Dr. Marsh was consulted for emergent dialysis due to hyperkalemia. Patient with myoclonic jerking, extension to painful stimuli in upper extremities, concern for anoxic brain injury. Palliative care was consulted to assist with further clarification of goals of medical treatment. Function/Cognitive Trajectory: Patient used a WC at home. Review of Systems unobtainable due to endotracheal tube (unresponsive) PMFSH - History History Provided By: Family Member, Medical Record - Medical History Medical History: Medical History (Last Updated 05/03/18 @ 17:38 by Leatha Laureano) End stage renal disease on dialysis (Acute) Diabetes MDRO (multiple drug resistant organisms) resistance Onset Date: ~05/02/18 Peripheral vascular disease - Surgical History Surgical History: Surgical History (Last Updated 05/03/18 @ 18:07 by Leatha Laureano) Hemodialysis access site with arteriovenous graft (Acute) H/O knee surgery History of right below knee amputation - Family History Family History: Family History (Last Updated 05/03/18 @ 18:10 by Leatha Laureano) Grandparent Diabetes Father Leukemia Diabetes Mother Diabetes Brother Diabetes - Social History I have reviewed the patient's Social History: Yes - Tobacco History Smoking Status: Current every day smoker (4-5 cigarettes per day x 7 months) - Alcohol History How Often Do You Have a Drink Containing Alcohol: Unable to Obtain - Substance Use History Substance History: Past History (history of drug abuse many years ago, only recent marijuana. ) - Substance Use Type Marijuana Status: Active Route Used: Inhalation - Travel History Recent Travel in the [place] Within the Last 8 Weeks: No Recent Travel Out of the Country Within the Last 8 Weeks: No - Immunization History Tetanus Immunization: Unable to Assess Medications and Allergies Active Medications: Active Medications Acetaminophen (Tylenol) 650 mg PO UNSCH PRN PRN Reason: SEE LABEL COMMENTS Acetaminophen (Tylenol) 650 mg PO Q6H PRN PRN Reason: PAIN 1-10 AND/OR FEVER >101F Last Admin: 05/03/18 09:21 Dose: 650 mg Al Hydroxide/Mg Hydroxide (Milk Of Neville Steen) 30 ml PO Q12H PRN PRN Reason: Mild Constipation Albuterol (Duoneb Neb (Prn)) 1 ampul NEB Q2HR NEB PRN PRN Reason: WHEEZING Bisacodyl (Dulcolax Supp) 10 mg RECTAL DAILY PRN PRN Reason: SEVERE CONSITIPATION Chlorhexidine Gluconate (Chlorhexidine 2% Cloth) 3 pack TOPICAL DAILY@0400 [facility] Stop: 05/08/18 03:59 Last Admin: 05/03/18 04:17 Dose: 3 pack Chlorhexidine Gluconate (Chlorhexidine 2% Cloth) 3 pack TOPICAL DAILY@0400 PRN PRN Reason: Extra cloth needed Stop: 05/08/18 03:59 Chlorhexidine Gluconate (Peridex 0.12% Oral Kit) 15 ml OROPHARYNG BID@0800, 2000 [facility] Last Admin: 05/03/18 09:04 Dose: 15 ml Clonidine HCl (Catapres) 0.1 mg PO UNSCH PRN PRN Reason: SEE LABEL COMMENTS Dextrose (D50w Vial) 50 ml IV.PUSH UNSCH PRN PRN Reason: PER HYPOGLYCEMIA PROTOCOL Diphenhydramine HCl (Benadryl) 25 mg PO UNSCH PRN PRN Reason: SEE LABEL COMMENTS Epoetin Xavier (Epogen Inj) 4,000 unit IV.PUSH UNSCH PRN PRN Reason: SEE LABEL COMMENTS Famotidine (Pepcid Pf Inj) 10 mg IV.PUSH Q12HR [facility] Last Admin: 05/03/18 09:03 Dose: 10 mg Gelatin (Gelfoam 12 Mm/7 Mm Topical) 1 foam TOPICAL PRN PRN PRN Reason: help stop bleeding from site Gentamicin Sulfate (Gentamicin Inj) 20 mg OTHER WITH DIALYSIS PRN PRN Reason: Dwell Gentamycin Lock Last Admin: 05/02/18 19:35 Dose: 20 mg Heparin Sodium (Porcine) (Heparin Inj) 8,000 units OTHER WITH DIALYSIS PRN PRN Reason: for machine prime Heparin Sodium (Porcine) (Heparin Inj) 1,000 units OTHER WITH DIALYSIS PRN PRN Reason: Dwell Heparin to Fill Catheter Last Admin: 05/02/18 19:35 Dose: 1,000 units Heparin Sodium (Porcine) (Heparin Inj) 5,000 units SQ Q8H [facility] Last Admin: 05/03/18 04:16 Dose: 5,000 units Hydromorphone HCl (Dilaudid Pf Inj) 1 mg IV.PUSH Q4H PRN PRN Reason: PAIN SCALE 6 TO 10 Albumin Human (Flexbumin 25% Inj) 100 mls @ 60 mls/hr IV.SIG WITH DIALYSIS PRN PRN Reason: hypotension / volume replace Sodium Chloride (Ns Inj) 1,000 mls @ 0 mls/hr OTHER .Q0M PRN PRN Reason: for prime and rinse back Sodium Chloride (Ns Inj) 1,000 mls @ 200 mls/hr OTHER .Q5H PRN PRN Reason: for dialyzer flush PRN Sodium Chloride (Ns Inj) 1,000 mls @ 0 mls/hr IV.CONT .Q0M PRN PRN Reason: hypotension / volume replace Sodium Chloride (Ns Inj) 1,000 mls @ 84 mls/hr IV.CONT .[id number] [facility] Last Infusion: 05/03/18 10:39 Dose: Infused Levetiracetam 1,000 mg/ Sodium (Chloride) 110 mls @ 400 mls/hr IV.SIG Q12H [facility] Last Infusion: 05/03/18 01:20 Dose: Infused Insulin Human Regular 100 unit (/ Sodium Chloride) 100 mls @ 0 mls/hr IV.CONT TITRATE PRN; Protocol PRN Reason: See protocol Last Titration: 05/03/18 06:10 Dose: 7 units/hr, 7 mls/hr Lactulose (Lactulose Liq) 30 ml PO DAILY PRN PRN Reason: SEVERE CONSITIPATION Mannitol (Mannitol Inj) 12.5 gm IV.PUSH UNSCH PRN PRN Reason: hypotension / volume replace Midazolam HCl (Versed Inj) 2 mg IV.PUSH Q1H PRN PRN Reason: SEDATION Last Admin: 05/03/18 01:03 Dose: 2 mg Miscellaneous (Pill Splitter) 1 each OTHER UNSCH PRN PRN Reason: PILL SPLITTER Miscellaneous Medication () 1 each OROPHARYNG 0000,0400,1200,1600 [facility] Last Admin: 05/03/18 04:17 Dose: 1 each Nitroglycerin (Nitrostat Sl) 0.4 mg SL Q5M PRN PRN Reason: CHEST PAIN Ondansetron HCl (Zofran Inj) 4 mg IV.PUSH UNSCH PRN PRN Reason: NAUSEA OR VOMITING Ondansetron HCl (Zofran Inj) 4 mg IV.PUSH Q6H PRN PRN Reason: NAUSEA OR VOMITING Senna/Docusate Sodium (Fabienne-Colace) 1 tab PO BID [facility] Last Admin: 05/03/18 09:03 Dose: 1 tab Sennosides (Senokot) 17.2 mg PO Q12H PRN PRN Reason: Moderate Constipation Sodium Chloride (Ns Flush) 2 ml IV.FLUSH PRN PRN PRN Reason: FLUSH AFTER USING IV ACCESS Sodium Chloride (Ns Flush) 5 ml IV.FLUSH PRN PRN PRN Reason: flush each lumen during HD Sodium Chloride (Ns Flush) 2 ml IV.FLUSH BID [facility] Last Admin: 05/03/18 09:04 Dose: 2 ml Sodium Chloride (Ns Flush) 2 ml IV.FLUSH PRN PRN PRN Reason: FLUSH AFTER USING IV ACCESS Allergies Allergy/AdvReac Type Severity Reaction Status Date / Time codeine Allergy Hives Verified 05/02/18 19:45 iodine Allergy Hives Verified 05/02/18 19:45 lisinopril Allergy Hives Verified 05/02/18 19:45 Penicillins Allergy Hives Verified 05/02/18 19:45 vancomycin Allergy Hives Verified 05/02/18 19:45 Advance Directives Living Will: No Healthcare Surrogate: No Power of Ophthalmologist: No Today's verbally stated goals: Patient is not capacitated to make her own health care decisions at this time, unlikely she will regain capacity. Family/friends goals: Family meeting 05/04/18 around 10 or 11am. Ethical and Legal Issues: Patient is not capacitated to make her own health care decisions at this time, unlikely she will regain capacity. Single. No children. Father . According to [place] statutes, health care proxy decision making falls to her mother, Mell Arreola. Physical Exam Vital Signs: Vital Signs - 24 hr 05/02/18 18:02 05/02/18 18:12 05/02/18 18:13 Temperature Pulse Rate 77 95 H Respiratory Rate 14 14 Blood Pressure 157/67 H Pulse Oximetry 100 100 100 05/02/18 18:15 05/02/18 18:25 05/02/18 18:30 Temperature Pulse Rate 96 H 66 Respiratory Rate 19 Blood Pressure 157/67 H 157/69 H Pulse Oximetry 100 100 100 05/02/18 18:45 05/02/18 18:54 05/02/18 19:00 Temperature Pulse Rate 84 82 80 Respiratory Rate 14 Blood Pressure 168/70 H 165/70 H Pulse Oximetry 100 100 05/02/18 19:15 05/02/18 19:45 05/02/18 20:00 Temperature Pulse Rate 92 H 88 Respiratory Rate 14 14 Blood Pressure 154/68 H 162/70 H Pulse Oximetry 100 100 100 05/02/18 20:49 05/02/18 22:00 05/02/18 22:14 Temperature Pulse Rate 88 98 H 83 Respiratory Rate 14 Blood Pressure 166/73 H Pulse Oximetry 05/02/18 22:16 05/02/18 22:18 05/02/18 22:21 Temperature Pulse Rate 83 Respiratory Rate 14 14 Blood Pressure 152/65 H Pulse Oximetry 100 100 100 05/02/18 22:37 05/02/18 22:45 05/02/18 23:00 Temperature Pulse Rate 85 86 84 Respiratory Rate 19 18 15 Blood Pressure 137/62 140/65 142/65 H Pulse Oximetry 100 99 100 05/02/18 23:15 05/02/18 23:30 05/02/18 23:50 Temperature Pulse Rate 86 89 91 H Respiratory Rate 20 20 13 Blood Pressure 160/83 H 153/71 H 143/65 H Pulse Oximetry 100 100 100 05/03/18 00:00 05/03/18 00:15 05/03/18 00:16 Temperature 98.2 F Pulse Rate 92 H 93 H Respiratory Rate 16 18 19 Blood Pressure 144/64 H 136/60 Pulse Oximetry 100 100 98 05/03/18 00:30 05/03/18 00:45 05/03/18 01:00 Temperature Pulse Rate 94 H 96 H 97 H Respiratory Rate 18 20 21 Blood Pressure 136/60 139/62 169/68 H Pulse Oximetry 100 100 100 05/03/18 01:15 05/03/18 01:30 05/03/18 01:45 Temperature Pulse Rate 97 H 98 H 99 H Respiratory Rate 17 20 20 Blood Pressure 144/62 H 149/70 H 170/63 H Pulse Oximetry 99 99 100 05/03/18 02:00 05/03/18 02:15 05/03/18 02:17 Temperature Pulse Rate 99 H 98 H 99 H Respiratory Rate 20 20 18 Blood Pressure 138/65 93/63 L 152/58 H Pulse Oximetry 100 100 100 05/03/18 02:36 05/03/18 03:00 05/03/18 03:06 Temperature Pulse Rate 100 H 100 H 102 H Respiratory Rate 19 20 20 Blood Pressure 152/97 H 130/71 Pulse Oximetry 100 100 100 05/03/18 03:36 05/03/18 04:00 05/03/18 04:06 Temperature 99.8 F H Pulse Rate 102 H 102 H 104 H Respiratory Rate 18 18 21 Blood Pressure 148/63 H 150/60 H 150/60 H Pulse Oximetry 100 100 97 05/03/18 04:36 05/03/18 04:43 05/03/18 05:00 Temperature Pulse Rate 102 H 104 H Respiratory Rate 19 19 21 Blood Pressure 163/69 H Pulse Oximetry 100 99 99 05/03/18 05:06 05/03/18 05:36 05/03/18 06:00 Temperature Pulse Rate 105 H 103 H 101 H Respiratory Rate 20 19 19 Blood Pressure 147/95 H 147/65 H Pulse Oximetry 99 99 99 05/03/18 06:06 05/03/18 06:36 05/03/18 07:00 Temperature Pulse Rate 101 H 100 H 100 H Respiratory Rate 18 19 18 Blood Pressure 152/63 H 159/67 H Pulse Oximetry 99 98 99 05/03/18 07:06 05/03/18 07:36 05/03/18 08:00 Temperature Pulse Rate 99 H 99 H 98 H Respiratory Rate 18 18 17 Blood Pressure 156/65 H 158/70 H Pulse Oximetry 99 99 99 05/03/18 08:06 05/03/18 08:36 05/03/18 09:00 Temperature 101.3 F H Pulse Rate 98 H 98 H 97 H Respiratory Rate 17 16 14 Blood Pressure 147/64 H 142/67 H Pulse Oximetry 99 99 99 05/03/18 09:06 05/03/18 09:08 05/03/18 09:36 Temperature Pulse Rate 98 H 97 H Respiratory Rate 15 16 15 Blood Pressure 153/65 H 156/66 H Pulse Oximetry 99 99 99 05/03/18 10:00 05/03/18 10:06 Temperature Pulse Rate 98 H 98 H Respiratory Rate 12 13 Blood Pressure 168/70 H Pulse Oximetry 100 100 I&O: Intake & Output 05/01/18 05/02/18 05/03/18 05/04/18 06:59 06:59 06:59 06:59 Intake Total 110 / 110 1084 / 1084 Output Total 2600 / 2600 Balance -2490 / -2490 1084 / 1084 Weight 122.47 kg Physical Exam: CONSTITUTIONAL/GENERAL: This is an adequately nourished patient, in no apparent distress. TUBES/LINES/DRAINS: ETT, OG, right AV fistula, right IJ SKIN: Tattoos noted. Ecchymoses on upper extremities. No wounds seen anteriorly. Skin temperature appropriate. Not diaphoretic. HEAD: Atraumatic. Normocephalic. EYES: Pupils equal and round and reactive. Right gaze deviation noted. ENT: Unable to assess hearing. Nose without bleeding or purulent drainage. Sucking/chewing movement noted. NECK: Trachea midline. CARDIOVASCULAR: Regular rate and rhythm without murmurs, gallops, or rubs. No JVD. RESPIRATORY/CHEST: On mech vent. scattered coarse breath sounds. GASTROINTESTINAL: Abdomen soft, nondistended. Bowel sounds present. GENITOURINARY: Without palpable bladder distension. Bentley catheter in place, no UOP noted. MUSCULOSKELETAL: Right BKA well healed. LLE edema. No mottling or clubbing. LYMPHATICS: Not examined. NEUROLOGICAL: Unresponsive on Precedex. Myoclonic movements noted, posturing noted to painful stimuli. PSYCHIATRIC: Unresponsive on Precedex. Diagnostic Tests Laboratory: Laboratory Results - last 72 hr 05/02/18 05/02/18 05/02/18 18:08 18:08 18:08 WBC 7.6 RBC 3.89 L Hgb 10.8 L POC Hgb (Calc) 12.9 Hct 36.7 POC Hct 38.0 MCV 94.4 MCH 27.8 MCHC 29.5 L RDW 19.2 H Plt Count 331 MPV 8.6 Neut % (Auto) 87.2 H Lymph % (Auto) 10.5 [place] % (Auto) 1.8 Eos % (Auto) 0.1 Baso % (Auto) 0.4 Neut # (Auto) 6.6 Lymph # (Auto) 0.8 L [place] # (Auto) 0.1 Eos # (Auto) 0.0 Baso # (Auto) 0.0 WBC Differential . Differential Comment Auto diff final PT 13.0 H INR 1.3 APTT 25.7 Puncture Site Patient Temperature O2 Saturation ABG pH ABG pCO2 ABG pO2 ABG HCO3 ABG O2 Content ABG Base Excess ABG Methemoglobin Norberto Test Hemoglobin Carboxyhemoglobin O2 Delivery Device Liter Flow Inspired O2 Critical Value POC Sodium 121 L* Sodium 120 L* POC Potassium 8.6 H* Potassium 8.6 H* POC Chloride Not Reportable Chloride 86 L Carbon Dioxide 13.7 L Anion Gap 20 H POC BUN 102 H BUN 93 H Creatinine 11.06 H* POC Creatinine 10.7 H* Estimated GFR 3 L POC Glucose 695 H* Random Glucose 705 H* Lactic Acid Calcium 8.5 Phosphorus Magnesium Total Bilirubin AST ALT Alkaline Phosphatase Total Creatine Kinase 65 Troponin I Less than 0.02 L Total Protein Albumin Nasal Screen MRSA (PCR) Serum Alcohol Less than 3 Hepatitis A IgM Ab Hep Bs Antigen Hep B Core IgM Ab Hep C IgG Ab Blood Type Antibody Screen 05/02/18 05/02/1805/02/18 18:08 18:08 18:08 WBC RBC Hgb POC Hgb (Calc) Hct POC Hct MCV MCH MCHC RDW Plt Count MPV Neut % (Auto) Lymph % (Auto) [place] % (Auto) Eos % (Auto) Baso % (Auto) Neut # (Auto) Lymph # (Auto) [place] # (Auto) Eos # (Auto) Baso # (Auto) WBC Differential Differential Comment PT INR APTT Puncture Site Left brachial Patient Temperature 98.6 O2 Saturation 93 ABG pH 7.22 L* ABG pCO2 44 H ABG pO2 360 H ABG HCO3 17 L ABG O2 Content 15.5 ABG Base Excess -8.9 L ABG Methemoglobin 0.6 Norberto Test Present Hemoglobin 11.2 L Carboxyhemoglobin 6.6 H* O2 Delivery Device Ambu bag Liter Flow 15.00 Inspired O2 100 Critical Value Yes POC Sodium Sodium POC Potassium Potassium POC Chloride Chloride Carbon Dioxide Anion Gap POC BUN BUN Creatinine POC Creatinine Estimated GFR POC Glucose Random Glucose Lactic Acid 5.9 H* Calcium Phosphorus Magnesium Total Bilirubin AST ALT Alkaline Phosphatase Total Creatine Kinase Cancelled Troponin I Total Protein Albumin Nasal Screen MRSA (PCR) Serum Alcohol Hepatitis A IgM Ab Hep Bs Antigen Hep B Core IgM Ab Hep C IgG Ab Blood Type Antibody Screen 05/02/18 05/02/18 05/02/18 18:08 18:31 20:40 WBC RBC Hgb POC Hgb (Calc) Hct POC Hct MCV MCH MCHC RDW Plt Count MPV Neut % (Auto) Lymph % (Auto) [place] % (Auto) Eos % (Auto) Baso % (Auto) Neut # (Auto) Lymph # (Auto) [place] # (Auto) Eos # (Auto) Baso # (Auto) WBC Differential Differential Comment PT INR APTT Puncture Site Patient Temperature O2 Saturation ABG pH ABG pCO2 ABG pO2 ABG HCO3 ABG O2 Content ABG Base Excess ABG Methemoglobin Norberto Test Hemoglobin Carboxyhemoglobin O2 Delivery Device Liter Flow Inspired O2 Critical Value POC Sodium Sodium POC Potassium Potassium POC Chloride Chloride Carbon Dioxide Anion Gap POC BUN BUN Creatinine POC Creatinine Estimated GFR POC Glucose Random Glucose Lactic Acid Calcium Phosphorus Magnesium 2.5 Total Bilirubin AST ALT Alkaline Phosphatase Total Creatine Kinase Troponin I Total Protein Albumin Nasal Screen MRSA (PCR) Serum Alcohol Hepatitis A IgM Ab Nonreactive Hep Bs Antigen Nonreactive Hep B Core IgM Ab Nonreactive Hep C IgG Ab Reactive H Blood Type B Positive Antibody Screen Negative 05/02/18 05/02/18 05/03/18 21:00 23:02 01:16 WBC RBC Hgb POC Hgb (Calc) Hct POC Hct MCV MCH MCHC RDW Plt Count MPV Neut % (Auto) Lymph % (Auto) [place] % (Auto) Eos % (Auto) Baso % (Auto) Neut # (Auto) Lymph # (Auto) [place] # (Auto) Eos # (Auto) Baso # (Auto) WBC Differential Differential Comment PT INR APTT Puncture Site Patient Temperature O2 Saturation ABG pH ABG pCO2 ABG pO2 ABG HCO3 ABG O2 Content ABG Base Excess ABG Methemoglobin Norberto Test Hemoglobin Carboxyhemoglobin O2 Delivery Device Liter Flow Inspired O2 Critical Value POC Sodium Sodium POC Potassium Potassium POC Chloride Chloride Carbon Dioxide Anion Gap POC BUN BUN Creatinine POC Creatinine Estimated GFR POC Glucose Random Glucose Lactic Acid 0.9 Calcium Phosphorus Magnesium Total Bilirubin AST ALT Alkaline Phosphatase Total Creatine Kinase Troponin I 0.22 H D Total Protein Albumin Nasal Screen MRSA (PCR) Mrsa detected Serum Alcohol Hepatitis A IgM Ab Hep Bs Antigen Hep B Core IgM Ab Hep C IgG Ab Blood Type Antibody Screen 05/03/18 05/03/18 05/03/18 01:52 01:54 04:12 WBC 14.5 H D RBC 3.68 L Hgb 10.0 L POC Hgb (Calc) Hct 31.6 L POC Hct MCV 85.8 D MCH 27.3 MCHC 31.8 L RDW 18.6 H Plt Count 292 MPV 7.9 Neut % (Auto) 90.4 H Lymph % (Auto) 3.2 L [place] % (Auto) 6.3 Eos % (Auto) 0.0 Baso % (Auto) 0.1 Neut # (Auto) 13.1 H Lymph # (Auto) 0.5 L [place] # (Auto) 0.9 Eos # (Auto) 0.0 Baso # (Auto) 0.0 WBC Differential . Differential Comment Auto diff final PT INR APTT Puncture Site Patient Temperature O2 Saturation ABG pH ABG pCO2 ABG pO2 ABG HCO3 ABG O2 Content ABG Base Excess ABG Methemoglobin Norberto Test Hemoglobin Carboxyhemoglobin O2 Delivery Device Liter Flow Inspired O2 Critical Value POC Sodium Sodium POC Potassium Potassium POC Chloride Chloride Carbon Dioxide Anion Gap POC BUN BUN Creatinine POC Creatinine Estimated GFR POC Glucose 436 H 416 H Random Glucose Lactic Acid Calcium Phosphorus Magnesium Total Bilirubin AST ALT Alkaline Phosphatase Total Creatine Kinase Troponin I Total Protein Albumin Nasal Screen MRSA (PCR) Serum Alcohol Hepatitis A IgM Ab Hep Bs Antigen Hep B Core IgM Ab Hep C IgG Ab Blood Type Antibody Screen 05/03/18 05/03/18 05/03/18 04:12 04:12 04:12 WBC RBC Hgb POC Hgb (Calc) Hct POC Hct MCV MCH MCHC RDW Plt Count MPV Neut % (Auto) Lymph % (Auto) [place] % (Auto) Eos % (Auto) Baso % (Auto) Neut # (Auto) Lymph # (Auto) [place] # (Auto) Eos # (Auto) Baso # (Auto) WBC Differential Differential Comment PT INR APTT 25.8 Puncture Site Patient Temperature O2 Saturation ABG pH ABG pCO2 ABG pO2 ABG HCO3 ABG O2 Content ABG Base Excess ABG Methemoglobin Norberto Test Hemoglobin Carboxyhemoglobin O2 Delivery Device Liter Flow Inspired O2 Critical Value POC Sodium Sodium 136 D POC Potassium Potassium 5.1 D POC Chloride Chloride 95 L D Carbon Dioxide 20.1 L Anion Gap 21 H POC BUN BUN 63 H Creatinine 8.33 H POC Creatinine Estimated GFR 4 L POC Glucose 436 H Random Glucose 412 H D Lactic Acid Calcium 9.0 Phosphorus 8.9 H Magnesium 2.1 Total Bilirubin 0.6 AST 17 ALT 14 Alkaline Phosphatase 163 H Total Creatine Kinase Troponin I 0.24 H Total Protein 8.3 H Albumin 3.1 L Nasal Screen MRSA (PCR) Serum Alcohol Hepatitis A IgM Ab Hep Bs Antigen Hep B Core IgM Ab Hep C IgG Ab Blood Type Antibody Screen 05/03/18 05/03/18 05/03/18 05:02 06:10 07:15 WBC RBC Hgb POC Hgb (Calc) Hct POC Hct MCV MCH MCHC RDW Plt Count MPV Neut % (Auto) Lymph % (Auto) [place] % (Auto) Eos % (Auto) Baso % (Auto) Neut # (Auto) Lymph # (Auto) [place] # (Auto) Eos # (Auto) Baso # (Auto) WBC Differential Differential Comment PT INR APTT Puncture Site Patient Temperature O2 Saturation ABG pH ABG pCO2 ABG pO2 ABG HCO3 ABG O2 Content ABG Base Excess ABG Methemoglobin Norberto Test Hemoglobin Carboxyhemoglobin O2 Delivery Device Liter Flow Inspired O2 Critical Value POC Sodium Sodium POC Potassium Potassium POC Chloride Chloride Carbon Dioxide Anion Gap POC BUN BUN Creatinine POC Creatinine Estimated GFR POC Glucose 358 H 315 H 227 H Random Glucose Lactic Acid Calcium Phosphorus Magnesium Total Bilirubin AST ALT Alkaline Phosphatase Total Creatine Kinase Troponin I Total Protein Albumin Nasal Screen MRSA (PCR) Serum Alcohol Hepatitis A IgM Ab Hep Bs Antigen Hep B Core IgM Ab Hep C IgG Ab Blood Type Antibody Screen 05/03/18 05/03/18 05/03/18 08:08 09:14 10:11 WBC RBC Hgb POC Hgb (Calc) Hct POC Hct MCV MCH MCHC RDW Plt Count MPV Neut % (Auto) Lymph % (Auto) [place] % (Auto) Eos % (Auto) Baso % (Auto) Neut # (Auto) Lymph # (Auto) [place] # (Auto) Eos # (Auto) Baso # (Auto) WBC Differential Differential Comment PT INR APTT Puncture Site Patient Temperature O2 Saturation ABG pH ABG pCO2 ABG pO2 ABG HCO3 ABG O2 Content ABG Base Excess ABG Methemoglobin Norberto Test Hemoglobin Carboxyhemoglobin O2 Delivery Device Liter Flow Inspired O2 Critical Value POC Sodium Sodium POC Potassium Potassium POC Chloride Chloride Carbon Dioxide Anion Gap POC BUN BUN Creatinine POC Creatinine Estimated GFR POC Glucose 180 H 135 H 142 H Random Glucose Lactic Acid Calcium Phosphorus Magnesium Total Bilirubin AST ALT Alkaline Phosphatase Total Creatine Kinase Troponin I Total Protein Albumin Nasal Screen MRSA (PCR) Serum Alcohol Hepatitis A IgM Ab Hep Bs Antigen Hep B Core IgM Ab Hep C IgG Ab Blood Type Antibody Screen 05/03/18 11:01 WBC RBC Hgb POC Hgb (Calc) Hct POC Hct MCV MCH MCHC RDW Plt Count MPV Neut % (Auto) Lymph % (Auto) [place] % (Auto) Eos % (Auto) Baso % (Auto) Neut # (Auto) Lymph # (Auto) [place] # (Auto) Eos # (Auto) Baso # (Auto) WBC Differential Differential Comment PT INR APTT Puncture Site Patient Temperature O2 Saturation ABG pH ABG pCO2 ABG pO2 ABG HCO3 ABG O2 Content ABG Base Excess ABG Methemoglobin Norberto Test Hemoglobin Carboxyhemoglobin O2 Delivery Device Liter Flow Inspired O2 Critical Value POC Sodium Sodium POC Potassium Potassium POC Chloride Chloride Carbon Dioxide Anion Gap POC BUN BUN Creatinine POC Creatinine Estimated GFR POC Glucose 143 H Random Glucose Lactic Acid Calcium Phosphorus Magnesium Total Bilirubin AST ALT Alkaline Phosphatase Total Creatine Kinase Troponin I Total Protein Albumin Nasal Screen MRSA (PCR) Serum Alcohol Hepatitis A IgM Ab Hep Bs Antigen Hep B Core IgM Ab Hep C IgG Ab Blood Type Antibody Screen Result Diagrams: 05/03/18 04:12 05/03/18 04:12 Imaging: Chest X-Ray 05/02/18 18:16 CONCLUSION: 1. ET tube is 1.5 cm above the nicola and needs withdrawn 1 cm. 2. Diffuse airspace opacities throughout both lungs. Procedures: * 05/02/18 - asystolic arrest, CPR, intubated. Patient/Family Conference Present at Family Conference: Spoke with motherMell via phone. Family Conference Time: Family Conference Location: Telephone Issues Discussed: * Palliative care role, purpose, approach * Additional medical, psychosocial, and spiritual history * Patients general health, functional status, and cognitive changes in the months leading up to the current hospitalization * Patient/family understanding of the current medical problems * Patients goals of care as best understood from advance directives and/or conversations and/or values * Palliative care contact information provided Assessment and Plan - Disease Oriented Problem List (1) Cardiac asystole (2) Respiratory failure (3) Hyperkalemia (4) Diabetes (5) Hemodialysis access site with arteriovenous graft (6) End stage renal disease on dialysis - Symptom Scale (1) Dyspnea 0-10 Scale: Unable to quantify (2) Pain 0-10 Scale: Unable to quantify (3) Myoclonus 0-10 Scale: Unable to quantify Pertinent Non-Medical Issues: Psychosocial: Single. No children. Lives with her mother, Has 2 brothers. Spiritual:Unknown. Legal: Patient is not capacitated to make her own health care decisions at this time, unlikely she will regain capacity. Single. No children. Father . According to [place] statutes, health care proxy decision making falls to her mother, Mell Arreola. Ethical issues impacting care: No known concerns at this time. Important Contacts: * Mell? mother: [phone] Prognosis: Patient Alba Arreola is a 47 year old female is a chronically, critically ill patient post witnessed cardiac arrest now with likely anoxic brain injury. Overall prognosis appears poor for meaningful. Code Status: Full Code Plan: * Patient is not capacitated to make her own health care decisions at this time , unlikely she will regain capacity. Single. No children. Father . According to [place] statutes, health care proxy decision making falls to her mother, Mell Arreola. * FULL CODE - mother considering CODE status asks if she can give me an answer on 05/04/18. * Goals: Additional history obtained from mother, Mell Arreola. Considering code status. Family meeting arranged tentatively 05/04/18 around 10 or 11am when mother arrives. Will further clarify goals of medical treatment at that time. * SYMPTOMS: Pain: due to recent cardiac arrest, CPR, debility, tubes and lines. On Precedex. Unresponsive. Dyspnea: Currently on mech vent. Myoclonus: on Keppra. Plan for possible MRI brain. * Palliative care will continue to follow to assist with symptom management and further clarification of goals of medical treatment throughout hospital course. Appreciation Thank you for the opportunity to participate in the care of Sarah Mulligan. Attestation Attestation: To help prompt me to consider important information that might be impacting today's encounter and assessment, information from prior notes written by myself or my colleagues may have been "brought forward" into today's note. My signature on this note, however, is an attestation that I personally performed the exam, history, and/or decision-making noted today, and, unless otherwise indicated, the interactions with patient, family, and staff as well as the review of records all occurred today. I also attest that the listed assessment and stated plan reflect my best clinical judgment today based on the combination of historical information, prior notes, and today's exam/ interactions. When time spent is documented, it refers only to time spent today by the signer, or if indicated, combined time spent today by collaborating physician/nurse practitioner.
--- NOTE | 2018-05-03 12:32 | ECG ---
Date Performed: 05/02/2018 Time Performed: 18:17:57 PTAGE: 89 years EKG: Sinus rhythm WITH SINUS ARRHYTHMIA INCOMPLETE RIGHT BUNDLE BRANCH BLOCK POSSIBLE RIGHT VENTRICULAR HYPERTROPHY AB NORMAL ECG NO PREVIOUS TRACING DOCTOR: Carroll Crowell Interpretating Date/Time 05/03/2018 12:30:42
[2018-05-03] MEDS: Heparin 10,000 UNITS/10 ML Vial (for IV use) OTHER PRN (13:34)
--- NOTE | 2018-05-03 14:41 | MB ---
cc: Michael Giron MD, PhD DATE: 05/03/2018 REASON FOR CONSULTATION: Encephalopathy and seizures. HISTORY OF PRESENT ILLNESS: This is a woman approximately [id number], status post cardiac arrest who was found in asystole and was resuscitated and intubated. The family witnessed the cardiac arrest and began immediate CPR prior to EMS arrival. The patient developed generalized jerking type of activity, has been started on Keppra and was given Versed and this has stopped. She has been having intermittent spontaneous chewing activity of the jaw. NEUROLOGIC EXAMINATION: The patient is not on any type of sedation at the present time. Her last Versed dose was 3 hours ago. Her pulse is 95, temperature 99.6 degrees, respiratory rate is 12, blood pressure 184% on high cortical function. She does not respond to voice. She does not respond to sternal rub or noxious stimuli. On cranial nerve exam she has periodic myoclonic type movement of the jaw. Pupils are 2 mm, reactive. She has a right gaze deviation. No facial asymmetry. On motor exam she tends to hold the right arm in a decerebrate type posture with increased tone compared to the left. Reflexes are symmetric. LABORATORY DATA: The white count is 14,500, hemoglobin 10, hematocrit 31.6%, platelet count is 292,000. PT 13, INR 1.3, APTT 25.7. Sodium is 136, potassium is 5.1, chloride is 95. The BUN is 63, creatinine is 8.3, AST 17, ALT 14. IMPRESSION: Severe hypoxic encephalopathy with secondary seizure. The seizures appear to be controlled clinically. We will review the EEG, continue Keppra. If possible, an MRI of the brain would be helpful for prognostic purposes, also because she does have some focality on her exam with what appears to be increased tone on the right compared with the left with it and also, at times a right gaze. If the patient is stable enough, we will proceed with an MRI. If not, we will forego this test. Prognosis is very guarded at the present time. Michael Giron MD, PhD HARI/jeanmarie , 01:20 PM , 01:28 PM
--- NOTE | 2018-05-03 15:30 | P.PNCC ---
Subjective Subjective Remarks/Hospital Course: Approximately 47-year-old unfortunate female presents status post cardiac arrest. She was in asystole and given 1 epinephrine and had spontaneous return of circulation with an adequate blood pressure. She was intubated with good end -tidal CO2. It was a witnessed cardiac arrest with family performing immediate CPR prior to EMS arrival. History limited given clinical acuity. 05/03: Posturing only. HD today. Appears to have severe anoxic brain injury. Objective Vital Signs / I&O: Vital Signs 05/02/18 18:02 05/02/18 18:12 05/02/18 18:13 Temperature Pulse Rate 77 95 H Respiratory Rate 14 14 Blood Pressure 157/67 H Pulse Oximetry 100 100 100 05/02/18 18:15 05/02/18 18:25 05/02/18 18:30 Temperature Pulse Rate 96 H 66 Respiratory Rate 19 Blood Pressure 157/67 H 157/69 H Pulse Oximetry 100 100 100 05/02/18 18:45 05/02/18 18:54 05/02/18 19:00 Temperature Pulse Rate 84 82 80 Respiratory Rate 14 Blood Pressure 168/70 H 165/70 H Pulse Oximetry 100 100 05/02/18 19:15 05/02/18 19:45 05/02/18 20:00 Temperature Pulse Rate 92 H 88 Respiratory Rate 14 14 Blood Pressure 154/68 H 162/70 H Pulse Oximetry 100 100 100 05/02/18 20:49 05/02/18 22:00 05/02/18 22:14 Temperature Pulse Rate 88 98 H 83 Respiratory Rate 14 Blood Pressure 166/73 H Pulse Oximetry 05/02/18 22:16 05/02/18 22:18 05/02/18 22:21 Temperature Pulse Rate 83 Respiratory Rate 14 14 Blood Pressure 152/65 H Pulse Oximetry 100 100 100 05/02/18 22:37 05/02/18 22:45 05/02/18 23:00 Temperature Pulse Rate 85 86 84 Respiratory Rate 19 18 15 Blood Pressure 137/62 140/65 142/65 H Pulse Oximetry 100 99 100 05/02/18 23:15 05/02/18 23:30 05/02/18 23:50 Temperature Pulse Rate 86 89 91 H Respiratory Rate 20 20 13 Blood Pressure 160/83 H 153/71 H 143/65 H Pulse Oximetry 100 100 100 05/03/18 00:00 05/03/18 00:15 05/03/18 00:16 Temperature 98.2 F Pulse Rate 92 H 93 H Respiratory Rate 16 18 19 Blood Pressure 144/64 H 136/60 Pulse Oximetry 100 100 98 05/03/18 00:30 05/03/18 00:45 05/03/18 01:00 Temperature Pulse Rate 94 H 96 H 97 H Respiratory Rate 18 20 21 Blood Pressure 136/60 139/62 169/68 H Pulse Oximetry 100 100 100 05/03/18 01:15 05/03/18 01:30 05/03/18 01:45 Temperature Pulse Rate 97 H 98 H 99 H Respiratory Rate 17 20 20 Blood Pressure 144/62 H 149/70 H 170/63 H Pulse Oximetry 99 99 100 05/03/18 02:00 05/03/18 02:15 05/03/18 02:17 Temperature Pulse Rate 99 H 98 H 99 H Respiratory Rate 20 20 18 Blood Pressure 138/65 93/63 L 152/58 H Pulse Oximetry 100 100 100 05/03/18 02:36 05/03/18 03:00 05/03/18 03:06 Temperature Pulse Rate 100 H 100 H 102 H Respiratory Rate 19 20 20 Blood Pressure 152/97 H 130/71 Pulse Oximetry 100 100 100 05/03/18 03:36 05/03/18 04:00 05/03/18 04:06 Temperature 99.8 F H Pulse Rate 102 H 102 H 104 H Respiratory Rate 18 18 21 Blood Pressure 148/63 H 150/60 H 150/60 H Pulse Oximetry 100 100 97 05/03/18 04:36 05/03/18 04:43 05/03/18 05:00 Temperature Pulse Rate 102 H 104 H Respiratory Rate 19 19 21 Blood Pressure 163/69 H Pulse Oximetry 100 99 99 05/03/18 05:06 05/03/18 05:36 05/03/18 06:00 Temperature Pulse Rate 105 H 103 H 101 H Respiratory Rate 20 19 19 Blood Pressure 147/95 H 147/65 H Pulse Oximetry 99 99 99 05/03/18 06:06 05/03/18 06:36 05/03/18 07:00 Temperature Pulse Rate 101 H 100 H 100 H Respiratory Rate 18 19 18 Blood Pressure 152/63 H 159/67 H Pulse Oximetry 99 98 99 05/03/18 07:06 05/03/18 07:36 05/03/18 08:00 Temperature Pulse Rate 99 H 99 H 98 H Respiratory Rate 18 18 17 Blood Pressure 156/65 H 158/70 H Pulse Oximetry 99 99 99 05/03/18 08:06 05/03/18 08:36 05/03/18 09:00 Temperature 101.3 F H Pulse Rate 98 H 98 H 97 H Respiratory Rate 17 16 14 Blood Pressure 147/64 H 142/67 H Pulse Oximetry 99 99 99 05/03/18 09:06 05/03/18 09:08 05/03/18 09:36 Temperature Pulse Rate 98 H 97 H Respiratory Rate 15 16 15 Blood Pressure 153/65 H 156/66 H Pulse Oximetry 99 99 99 05/03/18 10:00 05/03/18 10:06 05/03/18 10:36 Temperature Pulse Rate 98 H 98 H 98 H Respiratory Rate 12 13 11 L Blood Pressure 168/70 H 173/89 H Pulse Oximetry 100 100 99 05/03/18 11:00 05/03/18 11:06 05/03/18 11:36 Temperature Pulse Rate 100 H 100 H 101 H Respiratory Rate 15 16 10 L Blood Pressure 174/74 H 187/77 H Pulse Oximetry 99 99 99 05/03/18 11:43 05/03/18 11:58 05/03/18 12:00 Temperature 99.6 F Pulse Rate 99 H 98 H 95 H Respiratory Rate 14 14 12 Blood Pressure 193/72 H 184/79 H 184/79 H Pulse Oximetry 99 99 99 05/03/18 12:06 05/03/18 12:09 05/03/18 12:36 Temperature Pulse Rate 96 H 96 H 100 H Respiratory Rate 14 10 L 8 L Blood Pressure 187/72 H 186/76 H 181/75 H Pulse Oximetry 99 99 99 05/03/18 12:50 05/03/18 12:58 05/03/18 13:00 Temperature Pulse Rate 98 H 97 H Respiratory Rate 14 7 L 9 L Blood Pressure 180/71 H Pulse Oximetry 99 99 99 05/03/18 13:06 05/03/18 13:27 05/03/18 13:30 Temperature Pulse Rate 97 H 96 H 94 H Respiratory Rate 11 L 9 L 7 L Blood Pressure 205/88 H 175/74 H 176/72 H Pulse Oximetry 99 99 99 05/03/18 13:33 05/03/18 13:48 05/03/18 14:00 Temperature Pulse Rate 95 H 95 H 96 H Respiratory Rate 8 L 9 L 15 Blood Pressure 176/72 H 180/74 H Pulse Oximetry 99 99 99 05/03/18 14:03 Temperature Pulse Rate 97 H Respiratory Rate 10 L Blood Pressure 201/93 H Pulse Oximetry 99 Intake & Output 05/02/18 05/03/18 05/03/18 18:59 06:59 18:59 Intake Total 110 / 110 1194 / 1194 Output Total 2600 / 2600 Balance -2490 / -2490 1194 / 1194 Weight 122.47 kg 122.47 kg Intake: IV 110 / 110 1194 / 1194 NS Inj 1,000 ML @ 84 mls/hr IV. 1084 / 1084 CONT .[id number] NURY Rx#:[id number] Keppra Inj 1,000 MG In NS Inj 110 / 110 110 / 110 100 ML @ 400 mls/hr IV.SIG Q12H NURY Rx#:[id number] Output: Hemodialysis Amount 2500 / 2500 Urine Amount (Catheter) 0 / 0 Indwelling Urethral Catheter 0 / 0 Gastric Drainage 100 / 100 Oral 100 / 100 Result Diagrams: 05/03/18 04:12 05/03/18 04:12 Objective Remarks: - Constitutional profound neurological impairment Comments: Partial facial seizures versus myoclonic jerks, unresponsive to verbal or painful stimuli - Routine HEENT Exam Head: Present: normocephalic, atraumatic Eye: Present: PERRL, normal accommodation ENT: Present: mucous membranes moist - Routine Neck Exam Present: supple, full ROM. Absent: JVD, carotid bruit - Routine Chest/Breast/Axilla Exam Chest wall: Absent: tenderness - Routine Respiratory Exam Present: patient mechanically ventilated. Good jasmyn air movementAbsent: rhonchi , stridor, wheezes - Routine Cardiovascular Exam Present: RRR, S1, S2, no JVD - Routine Abdominal Exam Present: soft, normoactive bowel sounds. Absent: tenderness, distended - Routine Extremities Exam S/P right BKA Absent: cyanosis, clubbing, edema - Routine Skin Exam Present: intact. Absent: cyanosis, erythema - Routine Neurological Exam Patient remains comatose with myoclonic jerks, extension to painful stimuli in upper extremities Assessment and Plan - Assessment and Plan Plan: Respiratory failure -Intubated for an airway protection -No weaning until neurologically improve -Vent bundle -DuoNeb scheduled and as needed -SBTs daily Cardiac arrest -Unclear etiology -Series of troponins and EKGs to rule out acute coronary syndrome -Monitor for normothermia -Patient in need of emergent hemodialysis, benefit of therapeutic hypothermia and hypothermia catheter placement inferior to urgency of hemodialysis -> done End-stage renal disease -Hemodialysis per nephrology Diabetes mellitus -Insulin drip, convert to levemir and SSI Altered mental status -Status post cardiac arrest -Clinical signs of anoxic brain damage -EEG to rule out seizure -Neurology evaluation -Palliative care consult DVT GI prophylaxis -Teds SCDs -Subcu heparin -Pepcid Overall impression: Critically ill with unstable neurological status and ventilator dependence. Critical care 38 mins
[2018-05-03] MEDS: amLODIPine 10 MG Tablet PO SCH (17:33)
[2018-05-03] MEDS: Metoprolol Tartrate 50 MG Tablet PO SCH ×2 (17:33→22:51)
[2018-05-03] MEDS: hydrALAZINE HCl Inj 20 MG/ML Vial IV.PUSH PRN ×2 (19:32→23:13)
--- NOTE | 2018-05-03 20:04 | MG ---
cc: Cresencio Javier MD DATE OF STUDY: 05/03/2018. EEG RECORD NUMBER [id number]. Delta suppression flat line appearance followed by rhythmic 2-3 Hz delta activity followed by suppressed delta versus delta activity rhythmic again. Patient having some cycling type motion of mouth, tiny sharp transients, right hemispheric channels 95/35, at the origin with rhythmic delta burst. Burst suppression pattern overall with suppression lasting 5-15 seconds, bursts of delta with tiny sharp transients mainly in the right hemisphere. No driving with photic stimulation. INTERPRETATION: Burst suppression type pattern. Clinical correlation. Cresencio Javier MD MG/sj , 07:24 PM , 07:29 PM
[2018-05-04] MEDS: Oral Hygiene Kit OROPHARYNG SCH ×4 (00:31→17:27)
[2018-05-04] MEDS: Heparin - SQ 10,000 UNITS/ML Vial SQ SCH ×3 (05:03→21:18)
[2018-05-04] MEDS: Chlorhexidine Gluconate 2% 1 Pack (2 Cloths) TOPICAL SCH (05:03)
[2018-05-04] MEDS: hydrALAZINE HCl Inj 20 MG/ML Vial IV.PUSH PRN ×2 (05:04→14:16)
[2018-05-04 05:05] LABS: Albumin 2.9 g/dL (3.4-5.0); Calcium 9.1 mg/dL (8.5-10.1); Carbon Dioxide 26.6 meq/L (21.0-32.0); Phosphorus 4.3 mg/dL (2.5-4.9); Potassium 4.3 meq/L (3.5-5.1)
[2018-05-04] MEDS: amLODIPine 10 MG Tablet PO SCH (08:20)
[2018-05-04] MEDS: Famotidine PF Inj 20 MG/2 ML Vial IV.PUSH SCH ×2 (08:21→21:22)
[2018-05-04] MEDS: Metoprolol Tartrate 50 MG Tablet PO SCH ×2 (08:21→21:22)
[2018-05-04] MEDS: Senna/Docusate Sodium 8.6/50 MG Tablet PO SCH ×2 (08:21→21:22)
[2018-05-04] MEDS: HYDROmorphone PF Inj 1 MG/ML Ampul IV.PUSH PRN ×2 (08:21→14:16)
[2018-05-04] MEDS: Chlorhexidine 0.12% Oral Kit 15 ML UDC OROPHARYNG SCH ×2 (08:22→21:21)
[2018-05-04] MEDS ORDERED: levETIRAcetam 1000mg/100mL Inj 100 ML IV.SIG SCH (13:00)
--- NOTE | 2018-05-04 13:30 | P.PNPAL ---
Reason for Visit Reason for visit: a. To assist with evaluation and management of symptoms including: pain, encephalopathy, myoclonus/seizure. b. To assist medical decision maker(s) with: better understanding of current medical conditions; weighing benefits/burdens of medical treatment options; making medical treatment decisions. Subjective Subjective/Interval History: Sarah Frazier has been identified as Alba Arreola a 48 year old female. Patient seen and examined in ICU. Discussed with Dr. Thakur and nurse. Mother, Mell and brother, Geovanni at bedside. Patient remains unresponsive on mech vent, FiO2 40%. Off sedation. Intermittent hypertension. Post hemodialysis on 05/03 with removal of 4.7 L. Sodium 139, potassium 4.3, BUN 42, creatinine 6.78, GFR 5. Albumin 2.9. No seizure activity noted. On Keppra. EEG revealed burst suppression type pattern. MRI brain ordered , not yet completed. Family/Friend Interactions: Met with mother and brother at bedside. Introduced palliative care role. Medical update provided including review of test results, physical exam findings , what we are doing to support patient, findings and concerns for anoxic brain injury. Reviewed plan for MRI brain. We discussed I will keep them updated as we have more information. We talked about CODE Status and they tell me patient came home last week and told them she wanted DNR and brought home a [place] form , that was not yet completed. Based on her previously stated wishes they have elected DNR status. They verbalize she would not want to live on machines if she could not return to meaningful quality of life, they are not yet ready to make these decisions. I advised these are reasonable thoughts and that we should give her a little more time to be able to better prognosticate. Family is very appreciative. Mother requests that I call her and her son, Geovanni with updates because she sometimes forgets. Advance Directives Living Will: Never completed Health Care Surrogate: Never completed Durable Power of Elementary Special Education Teacher: Never completed Health Care Surrogate Name and Number: HCP: Mell Arreola, mother: [phone] Significant change in goals:: NO CODE. Desires continued aggressive care short of NO CODE for now. Objective Vital Signs: Vital Signs 05/03/18 13:27 05/03/18 13:30 05/03/18 13:33 Temperature Pulse Rate 96 H 94 H 95 H Respiratory Rate 9 L 7 L 8 L Blood Pressure 175/74 H 176/72 H 176/72 H Pulse Oximetry 99 99 99 05/03/18 13:48 05/03/18 14:00 05/03/18 14:03 Temperature Pulse Rate 95 H 96 H 97 H Respiratory Rate 9 L 15 10 L Blood Pressure 180/74 H 201/93 H Pulse Oximetry 99 99 99 05/03/18 14:18 05/03/18 14:33 05/03/18 14:48 Temperature Pulse Rate 97 H 97 H 98 H Respiratory Rate 11 L 13 14 Blood Pressure 185/77 H 193/70 H 188/81 H Pulse Oximetry 99 99 99 05/03/18 15:00 05/03/18 15:03 05/03/18 15:18 Temperature Pulse Rate 98 H 97 H 98 H Respiratory Rate 14 15 14 Blood Pressure 178/82 H 178/98 H Pulse Oximetry 96 98 96 05/03/18 15:33 05/03/18 15:50 05/03/18 15:51 Temperature Pulse Rate 100 H 103 H 104 H Respiratory Rate 15 16 17 Blood Pressure 174/73 H 139/94 H 177/108 H Pulse Oximetry 95 93 L 93 L 05/03/18 16:00 05/03/18 16:06 05/03/18 16:56 Temperature 100.0 F H Pulse Rate 103 H 102 H Respiratory Rate 14 14 18 Blood Pressure 157/68 H 148/72 H Pulse Oximetry 100 99 99 05/03/18 17:00 05/03/18 18:00 05/03/18 19:00 Temperature Pulse Rate 105 H 93 H 88 Respiratory Rate 21 24 19 Blood Pressure 163/73 H 175/72 H Pulse Oximetry 98 98 98 05/03/18 19:02 05/03/18 19:32 05/03/18 19:55 Temperature Pulse Rate 88 91 H Respiratory Rate 16 22 15 Blood Pressure 197/77 H 181/72 H Pulse Oximetry 98 98 97 05/03/18 20:00 05/03/18 21:00 05/03/18 22:00 Temperature 100.3 F H Pulse Rate 94 H 98 H 99 H Respiratory Rate 19 14 15 Blood Pressure 157/67 H 165/68 H 171/72 H Pulse Oximetry 98 97 97 05/03/18 23:00 05/03/18 23:06 05/03/18 23:14 Temperature 103.1 F H Pulse Rate 101 H 101 H 99 H Respiratory Rate 18 14 14 Blood Pressure 196/74 H 187/75 H Pulse Oximetry 97 97 97 05/03/18 23:15 05/03/18 23:21 05/04/18 00:00 Temperature 102.1 F H Pulse Rate 99 H 90 Respiratory Rate 14 14 14 Blood Pressure 179/68 H 152/60 H Pulse Oximetry 97 97 97 05/04/18 01:00 05/04/18 02:00 05/04/18 03:00 Temperature 102.2 F H 100.7 F H Pulse Rate 87 88 89 Respiratory Rate 14 14 14 Blood Pressure 146/58 H 145/63 H 160/67 H Pulse Oximetry 95 96 97 05/04/18 04:00 05/04/18 04:12 05/04/18 05:00 Temperature 100.7 F H Pulse Rate 92 H 86 Respiratory Rate 14 14 14 Blood Pressure 177/72 H 173/68 H Pulse Oximetry 95 96 98 05/04/18 06:00 05/04/18 07:00 05/04/18 08:44 Temperature Pulse Rate 91 H 90 Respiratory Rate 14 16 16 Blood Pressure 167/70 H 178/71 H Pulse Oximetry 97 96 97 05/04/18 08:50 05/04/18 11:52 Temperature Pulse Rate 80 77 Respiratory Rate 16 14 Blood Pressure Pulse Oximetry 98 Intake & Output 05/03/18 05/04/18 05/04/18 18:59 06:59 18:59 Intake Total 1314 / 1314 521 / 521 Output Total 4700 / 4700 0 / 0 Balance -3386 / -3386 521 / 521 Weight 122.47 kg Intake: IV 1194 / 1194 110 / 110 NS Inj 1,000 ML @ 84 mls/hr IV. 1084 / 1084 CONT .[id number] NURY Rx#:[id number] Keppra Inj 1,000 MG In NS Inj 110 / 110 110 / 110 100 ML @ 400 mls/hr IV.SIG Q12H NURY Rx#:[id number] Oral 120 / 120 120 / 120 Tube Feeding 291 / 291 Output: Hemodialysis Amount 4700 / 4700 Urine Amount (Catheter) 0 / 0 Indwelling Urethral Catheter 0 / 0 Physical Exam: CONSTITUTIONAL/GENERAL: This is an adequately nourished patient, in no apparent distress. TUBES/LINES/DRAINS: ETT, OG, right AV fistula, right IJ SKIN: Tattoos noted. Ecchymoses on upper extremities. No wounds seen anteriorly. Skin temperature appropriate. Not diaphoretic. EYES: Pupils equal and round and reactive. ENT: Unable to assess hearing. Nose without bleeding or purulent drainage. CARDIOVASCULAR: Regular rate and rhythm without murmur. RESPIRATORY/CHEST: On mech vent. scattered coarse breath sounds. GASTROINTESTINAL: Abdomen soft, nondistended. Bowel sounds present. GENITOURINARY: Without palpable bladder distension. Bentley catheter in place, no UOP noted. MUSCULOSKELETAL: Right BKA well healed. LLE edema. No mottling or clubbing. NEUROLOGICAL: Unresponsive on Precedex. Myoclonic movements noted, posturing noted to painful stimuli. PSYCHIATRIC: Unresponsive on Precedex. Diagnostic Tests Laboratory: Laboratory Results - last 72 hr 05/02/18 05/02/18 05/02/18 18:08 18:08 18:08 WBC 7.6 RBC 3.89 L Hgb 10.8 L POC Hgb (Calc) 12.9 Hct 36.7 POC Hct 38.0 MCV 94.4 MCH 27.8 MCHC 29.5 L RDW 19.2 H Plt Count 331 MPV 8.6 Neut % (Auto) 87.2 H Lymph % (Auto) 10.5 [place] % (Auto) 1.8 Eos % (Auto) 0.1 Baso % (Auto) 0.4 Neut # (Auto) 6.6 Lymph # (Auto) 0.8 L [place] # (Auto) 0.1 Eos # (Auto) 0.0 Baso # (Auto) 0.0 WBC Differential . Differential Comment Auto diff final PT 13.0 H INR 1.3 APTT 25.7 Puncture Site Patient Temperature O2 Saturation ABG pH ABG pCO2 ABG pO2 ABG HCO3 ABG O2 Content ABG Base Excess ABG Methemoglobin Norberto Test Hemoglobin Carboxyhemoglobin O2 Delivery Device Liter Flow Inspired O2 Critical Value POC Sodium 121 L* Sodium 120 L* POC Potassium 8.6 H* Potassium 8.6 H* POC Chloride Not Reportable Chloride 86 L Carbon Dioxide 13.7 L Anion Gap 20 H POC BUN 102 H BUN 93 H Creatinine 11.06 H* POC Creatinine 10.7 H* Estimated GFR 3 L POC Glucose 695 H* Random Glucose 705 H* Lactic Acid Calcium 8.5 Phosphorus Magnesium Total Bilirubin AST ALT Alkaline Phosphatase Total Creatine Kinase 65 Troponin I Less than 0.02 L Total Protein Albumin Nasal Screen MRSA (PCR) Serum Alcohol Less than 3 Hepatitis A IgM Ab Hep Bs Antigen Hep B Core IgM Ab Hep C IgG Ab Blood Type Antibody Screen 05/02/18 05/02/18 05/02/18 18:08 18:08 18:08 WBC RBC Hgb POC Hgb (Calc) Hct POC Hct MCV MCH MCHC RDW Plt Count MPV Neut % (Auto) Lymph % (Auto) [place] % (Auto) Eos % (Auto) Baso % (Auto) Neut # (Auto) Lymph # (Auto) [place] # (Auto) Eos # (Auto) Baso # (Auto) WBC Differential Differential Comment PT INR APTT Puncture Site Left brachial Patient Temperature 98.6 O2 Saturation 93 ABG pH 7.22 L* ABG pCO2 44 H ABG pO2 360 H ABG HCO3 17 L ABG O2 Content 15.5 ABG Base Excess -8.9 L ABG Methemoglobin 0.6 Norberto Test Present Hemoglobin 11.2 L Carboxyhemoglobin 6.6 H* O2 Delivery Device Ambu bag Liter Flow 15.00 Inspired O2 100 Critical Value Yes POC Sodium Sodium POC Potassium Potassium POC Chloride Chloride Carbon Dioxide Anion Gap POC BUN BUN Creatinine POC Creatinine Estimated GFR POC Glucose Random Glucose Lactic Acid 5.9 H* Calcium Phosphorus Magnesium Total Bilirubin AST ALT Alkaline Phosphatase Total Creatine Kinase Cancelled Troponin I Total Protein Albumin Nasal Screen MRSA (PCR) Serum Alcohol Hepatitis A IgM Ab Hep Bs Antigen Hep B Core IgM Ab Hep C IgG Ab Blood Type Antibody Screen 05/02/18 05/02/18 05/02/18 18:08 18:31 20:40 WBC RBC Hgb POC Hgb (Calc) Hct POC Hct MCV MCH MCHC RDW Plt Count MPV Neut % (Auto) Lymph % (Auto) [place] % (Auto) Eos % (Auto) Baso % (Auto) Neut # (Auto) Lymph # (Auto) [place] # (Auto) Eos # (Auto) Baso # (Auto) WBC Differential Differential Comment PT INR APTT Puncture Site Patient Temperature O2 Saturation ABG pH ABG pCO2 ABG pO2 ABG HCO3 ABG O2 Content ABG Base Excess ABG Methemoglobin Norberto Test Hemoglobin Carboxyhemoglobin O2 Delivery Device Liter Flow Inspired O2 Critical Value POC Sodium Sodium POC Potassium Potassium POC Chloride Chloride Carbon Dioxide Anion Gap POC BUN BUN Creatinine POC Creatinine Estimated GFR POC Glucose Random Glucose Lactic Acid Calcium Phosphorus Magnesium 2.5 Total Bilirubin AST ALT Alkaline Phosphatase Total Creatine Kinase Troponin I Total Protein Albumin Nasal Screen MRSA (PCR) Serum Alcohol Hepatitis A IgM Ab Nonreactive Hep Bs Antigen Nonreactive Hep B Core IgM Ab Nonreactive Hep C IgG Ab Reactive H Blood Type B Positive Antibody Screen Negative 05/02/18 05/02/18 05/03/18 21:00 23:02 01:16 WBC RBC Hgb POC Hgb (Calc) Hct POC Hct MCV MCH MCHC RDW Plt Count MPV Neut % (Auto) Lymph % (Auto) [place] % (Auto) Eos % (Auto) Baso % (Auto) Neut # (Auto) Lymph # (Auto) [place] # (Auto) Eos # (Auto) Baso # (Auto) WBC Differential Differential Comment PT INR APTT Puncture Site Patient Temperature O2 Saturation ABG pH ABG pCO2 ABG pO2 ABG HCO3 ABG O2 Content ABG Base Excess ABG Methemoglobin Norberto Test Hemoglobin Carboxyhemoglobin O2 Delivery Device Liter Flow Inspired O2 Critical Value POC Sodium Sodium POC Potassium Potassium POC Chloride Chloride Carbon Dioxide Anion Gap POC BUN BUN Creatinine POC Creatinine Estimated GFR POC Glucose Random Glucose Lactic Acid 0.9 Calcium Phosphorus Magnesium Total Bilirubin AST ALT Alkaline Phosphatase Total Creatine Kinase Troponin I 0.22 H D Total Protein Albumin Nasal Screen MRSA (PCR) Mrsa detected Serum Alcohol Hepatitis A IgM Ab Hep Bs Antigen Hep B Core IgM Ab Hep C IgG Ab Blood Type Antibody Screen 05/03/18 05/03/18 05/03/18 01:52 01:54 04:12 WBC 14.5 H D RBC 3.68 L Hgb 10.0 L POC Hgb (Calc) Hct 31.6 L POC Hct MCV 85.8 D MCH 27.3 MCHC 31.8 L RDW 18.6 H Plt Count 292 MPV 7.9 Neut % (Auto) 90.4 H Lymph % (Auto) 3.2 L [place] % (Auto) 6.3 Eos % (Auto) 0.0 Baso % (Auto) 0.1 Neut # (Auto) 13.1 H Lymph # (Auto) 0.5 L [place] # (Auto) 0.9 Eos # (Auto) 0.0 Baso # (Auto) 0.0 WBC Differential . Differential Comment Auto diff final PT INR APTT Puncture Site Patient Temperature O2 Saturation ABG pH ABG pCO2 ABG pO2 ABG HCO3 ABG O2 Content ABG Base Excess ABG Methemoglobin Norberto Test Hemoglobin Carboxyhemoglobin O2 Delivery Device Liter Flow Inspired O2 Critical Value POC Sodium Sodium POC Potassium Potassium POC Chloride Chloride Carbon Dioxide Anion Gap POC BUN BUN Creatinine POC Creatinine Estimated GFR POC Glucose 436 H 416 H Random Glucose Lactic Acid Calcium Phosphorus Magnesium Total Bilirubin AST ALT Alkaline Phosphatase Total Creatine Kinase Troponin I Total Protein Albumin Nasal Screen MRSA (PCR) Serum Alcohol Hepatitis A IgM Ab Hep Bs Antigen Hep B Core IgM Ab Hep C IgG Ab Blood Type Antibody Screen 05/03/18 05/03/18 05/03/18 04:12 04:12 04:12 WBC RBC Hgb POC Hgb (Calc) Hct POC Hct MCV MCH MCHC RDW Plt Count MPV Neut % (Auto) Lymph % (Auto) [place] % (Auto) Eos % (Auto) Baso % (Auto) Neut # (Auto) Lymph # (Auto) [place] # (Auto) Eos # (Auto) Baso # (Auto) WBC Differential Differential Comment PT INR APTT 25.8 Puncture Site Patient Temperature O2 Saturation ABG pH ABG pCO2 ABG pO2 ABG HCO3 ABG O2 Content ABG Base Excess ABG Methemoglobin Norberto Test Hemoglobin Carboxyhemoglobin O2 Delivery Device Liter Flow Inspired O2 Critical Value POC Sodium Sodium 136 D POC Potassium Potassium 5.1 D POC Chloride Chloride 95 L D Carbon Dioxide 20.1 L Anion Gap 21 H POC BUN BUN 63 H Creatinine 8.33 H POC Creatinine Estimated GFR 4 L POC Glucose 436 H Random Glucose 412 H D Lactic Acid Calcium 9.0 Phosphorus 8.9 H Magnesium 2.1 Total Bilirubin 0.6 AST 17 ALT 14 Alkaline Phosphatase 163 H Total Creatine Kinase Troponin I 0.24 H Total Protein 8.3 H Albumin 3.1 L Nasal Screen MRSA (PCR) Serum Alcohol Hepatitis A IgM Ab Hep Bs Antigen Hep B Core IgM Ab Hep C IgG Ab Blood Type Antibody Screen 05/03/18 05/03/18 05/03/18 05:02 06:10 07:15 WBC RBC Hgb POC Hgb (Calc) Hct POC Hct MCV MCH MCHC RDW Plt Count MPV Neut % (Auto) Lymph % (Auto) [place] % (Auto) Eos % (Auto) Baso % (Auto) Neut # (Auto) Lymph # (Auto) [place] # (Auto) Eos # (Auto) Baso # (Auto) WBC Differential Differential Comment PT INR APTT Puncture Site Patient Temperature O2 Saturation ABG pH ABG pCO2 ABG pO2 ABG HCO3 ABG O2 Content ABG Base Excess ABG Methemoglobin Norberto Test Hemoglobin Carboxyhemoglobin O2 Delivery Device Liter Flow Inspired O2 Critical Value POC Sodium Sodium POC Potassium Potassium POC Chloride Chloride Carbon Dioxide Anion Gap POC BUN BUN Creatinine POC Creatinine Estimated GFR POC Glucose 358 H 315 H 227 H Random Glucose Lactic Acid Calcium Phosphorus Magnesium Total Bilirubin AST ALT Alkaline Phosphatase Total Creatine Kinase Troponin I Total Protein Albumin Nasal Screen MRSA (PCR) Serum Alcohol Hepatitis A IgM Ab Hep Bs Antigen Hep B Core IgM Ab Hep C IgG Ab Blood Type Antibody Screen 05/03/18 05/03/18 05/03/18 08:08 09:14 10:11 WBC RBC Hgb POC Hgb (Calc) Hct POC Hct MCV MCH MCHC RDW Plt Count MPV Neut % (Auto) Lymph % (Auto) [place] % (Auto) Eos % (Auto) Baso % (Auto) Neut # (Auto) Lymph # (Auto) [place] # (Auto) Eos # (Auto) Baso # (Auto) WBC Differential Differential Comment PT INR APTT Puncture Site Patient Temperature O2 Saturation ABG pH ABG pCO2 ABG pO2 ABG HCO3 ABG O2 Content ABG Base Excess ABG Methemoglobin Norberto Test Hemoglobin Carboxyhemoglobin O2 Delivery Device Liter Flow Inspired O2 Critical Value POC Sodium Sodium POC Potassium Potassium POC Chloride Chloride Carbon Dioxide Anion Gap POC BUN BUN Creatinine POC Creatinine Estimated GFR POC Glucose 180 H 135 H 142 H Random Glucose Lactic Acid Calcium Phosphorus Magnesium Total Bilirubin AST ALT Alkaline Phosphatase Total Creatine Kinase Troponin I Total Protein Albumin Nasal Screen MRSA (PCR) Serum Alcohol Hepatitis A IgM Ab Hep Bs Antigen Hep B Core IgM Ab Hep C IgG Ab Blood Type Antibody Screen 05/03/18 05/03/18 05/03/18 11:01 12:00 13:08 WBC RBC Hgb POC Hgb (Calc) Hct POC Hct MCV MCH MCHC RDW Plt Count MPV Neut % (Auto) Lymph % (Auto) [place] % (Auto) Eos % (Auto) Baso % (Auto) Neut # (Auto) Lymph # (Auto) [place] # (Auto) Eos # (Auto) Baso # (Auto) WBC Differential Differential Comment PT INR APTT Puncture Site Patient Temperature O2 Saturation ABG pH ABG pCO2 ABG pO2 ABG HCO3 ABG O2 Content ABG Base Excess ABG Methemoglobin Norberto Test Hemoglobin Carboxyhemoglobin O2 Delivery Device Liter Flow Inspired O2 Critical Value POC Sodium Sodium POC Potassium Potassium POC Chloride Chloride Carbon Dioxide Anion Gap POC BUN BUN Creatinine POC Creatinine Estimated GFR POC Glucose 143 H 148 H 151 H Random Glucose Lactic Acid Calcium Phosphorus Magnesium Total Bilirubin AST ALT Alkaline Phosphatase Total Creatine Kinase Troponin I Total Protein Albumin Nasal Screen MRSA (PCR) Serum Alcohol Hepatitis A IgM Ab Hep Bs Antigen Hep B Core IgM Ab Hep C IgG Ab Blood Type Antibody Screen 05/03/18 05/03/18 05/03/18 14:12 15:12 16:11 WBC RBC Hgb POC Hgb (Calc) Hct POC Hct MCV MCH MCHC RDW Plt Count MPV Neut % (Auto) Lymph % (Auto) [place] % (Auto) Eos % (Auto) Baso % (Auto) Neut # (Auto) Lymph # (Auto) [place] # (Auto) Eos # (Auto) Baso # (Auto) WBC Differential Differential Comment PT INR APTT Puncture Site Patient Temperature O2 Saturation ABG pH ABG pCO2 ABG pO2 ABG HCO3 ABG O2 Content ABG Base Excess ABG Methemoglobin Norberto Test Hemoglobin Carboxyhemoglobin O2 Delivery Device Liter Flow Inspired O2 Critical Value POC Sodium Sodium POC Potassium Potassium POC Chloride Chloride Carbon Dioxide Anion Gap POC BUN BUN Creatinine POC Creatinine Estimated GFR POC Glucose 134 H 115 H 132 H Random Glucose Lactic Acid Calcium Phosphorus Magnesium Total Bilirubin AST ALT Alkaline Phosphatase Total Creatine Kinase Troponin I Total Protein Albumin Nasal Screen MRSA (PCR) Serum Alcohol Hepatitis A IgM Ab Hep Bs Antigen Hep B Core IgM Ab Hep C IgG Ab Blood Type Antibody Screen 05/03/18 05/03/18 05/03/18 16:56 18:17 19:02 WBC RBC Hgb POC Hgb (Calc) Hct POC Hct MCV MCH MCHC RDW Plt Count MPV Neut % (Auto) Lymph % (Auto) [place] % (Auto) Eos % (Auto) Baso % (Auto) Neut # (Auto) Lymph # (Auto) [place] # (Auto) Eos # (Auto) Baso # (Auto) WBC Differential Differential Comment PT INR APTT Puncture Site Patient Temperature O2 Saturation ABG pH ABG pCO2 ABG pO2 ABG HCO3 ABG O2 Content ABG Base Excess ABG Methemoglobin Norberto Test Hemoglobin Carboxyhemoglobin O2 Delivery Device Liter Flow Inspired O2 Critical Value POC Sodium Sodium POC Potassium Potassium POC Chloride Chloride Carbon Dioxide Anion Gap POC BUN BUN Creatinine POC Creatinine Estimated GFR POC Glucose 127 H 144 H 160 H Random Glucose Lactic Acid Calcium Phosphorus Magnesium Total Bilirubin AST ALT Alkaline Phosphatase Total Creatine Kinase Troponin I Total Protein Albumin Nasal Screen MRSA (PCR) Serum Alcohol Hepatitis A IgM Ab Hep Bs Antigen Hep B Core IgM Ab Hep C IgG Ab Blood Type Antibody Screen 05/03/18 05/03/18 05/03/18 20:06 21:06 22:07 WBC RBC Hgb POC Hgb (Calc) Hct POC Hct MCV MCH MCHC RDW Plt Count MPV Neut % (Auto) Lymph % (Auto) [place] % (Auto) Eos % (Auto) Baso % (Auto) Neut # (Auto) Lymph # (Auto) [place] # (Auto) Eos # (Auto) Baso # (Auto) WBC Differential Differential Comment PT INR APTT Puncture Site Patient Temperature O2 Saturation ABG pH ABG pCO2 ABG pO2 ABG HCO3 ABG O2 Content ABG Base Excess ABG Methemoglobin Norberto Test Hemoglobin Carboxyhemoglobin O2 Delivery Device Liter Flow Inspired O2 Critical Value POC Sodium Sodium POC Potassium Potassium POC Chloride Chloride Carbon Dioxide Anion Gap POC BUN BUN Creatinine POC Creatinine Estimated GFR POC Glucose 157 H 170 H 160 H Random Glucose Lactic Acid Calcium Phosphorus Magnesium Total Bilirubin AST ALT Alkaline Phosphatase Total Creatine Kinase Troponin I Total Protein Albumin Nasal Screen MRSA (PCR) Serum Alcohol Hepatitis A IgM Ab Hep Bs Antigen Hep B Core IgM Ab Hep C IgG Ab Blood Type Antibody Screen 05/03/18 05/04/18 05/04/18 23:08 00:13 01:11 WBC RBC Hgb POC Hgb (Calc) Hct POC Hct MCV MCH MCHC RDW Plt Count MPV Neut % (Auto) Lymph % (Auto) [place] % (Auto) Eos % (Auto) Baso % (Auto) Neut # (Auto) Lymph # (Auto) [place] # (Auto) Eos # (Auto) Baso # (Auto) WBC Differential Differential Comment PT INR APTT Puncture Site Patient Temperature O2 Saturation ABG pH ABG pCO2 ABG pO2 ABG HCO3 ABG O2 Content ABG Base Excess ABG Methemoglobin Norberto Test Hemoglobin Carboxyhemoglobin O2 Delivery Device Liter Flow Inspired O2 Critical Value POC Sodium Sodium POC Potassium Potassium POC Chloride Chloride Carbon Dioxide Anion Gap POC BUN BUN Creatinine POC Creatinine Estimated GFR POC Glucose 154 H 159 H 146 H Random Glucose Lactic Acid Calcium Phosphorus Magnesium Total Bilirubin AST ALT Alkaline Phosphatase Total Creatine Kinase Troponin I Total Protein Albumin Nasal Screen MRSA (PCR) Serum Alcohol Hepatitis A IgM Ab Hep Bs Antigen Hep B Core IgM Ab Hep C IgG Ab Blood Type Antibody Screen 05/04/18 05/04/18 05/04/18 02:13 03:05 04:06 WBC RBC Hgb POC Hgb (Calc) Hct POC Hct MCV MCH MCHC RDW Plt Count MPV Neut % (Auto) Lymph % (Auto) [place] % (Auto) Eos % (Auto) Baso % (Auto) Neut # (Auto) Lymph # (Auto) [place] # (Auto) Eos # (Auto) Baso # (Auto) WBC Differential Differential Comment PT INR APTT Puncture Site Patient Temperature O2 Saturation ABG pH ABG pCO2 ABG pO2 ABG HCO3 ABG O2 Content ABG Base Excess ABG Methemoglobin Norberto Test Hemoglobin Carboxyhemoglobin O2 Delivery Device Liter Flow Inspired O2 Critical Value POC Sodium Sodium POC Potassium Potassium POC Chloride Chloride Carbon Dioxide Anion Gap POC BUN BUN Creatinine POC Creatinine Estimated GFR POC Glucose 168 H 158 H 169 H Random Glucose Lactic Acid Calcium Phosphorus Magnesium Total Bilirubin AST ALT Alkaline Phosphatase Total Creatine Kinase Troponin I Total Protein Albumin Nasal Screen MRSA (PCR) Serum Alcohol Hepatitis A IgM Ab Hep Bs Antigen Hep B Core IgM Ab Hep C IgG Ab Blood Type Antibody Screen 05/04/18 05/04/18 05/04/18 04:13 05:01 06:10 WBC RBC Hgb POC Hgb (Calc) Hct POC Hct MCV MCH MCHC RDW Plt Count MPV Neut % (Auto) Lymph % (Auto) [place] % (Auto) Eos % (Auto) Baso % (Auto) Neut # (Auto) Lymph # (Auto) [place] # (Auto) Eos # (Auto) Baso # (Auto) WBC Differential Differential Comment PT INR APTT Puncture Site Patient Temperature O2 Saturation ABG pH ABG pCO2 ABG pO2 ABG HCO3 ABG O2 Content ABG Base Excess ABG Methemoglobin Norberto Test Hemoglobin Carboxyhemoglobin O2 Delivery Device Liter Flow Inspired O2 Critical Value POC Sodium Sodium 139 POC Potassium Potassium 4.3 D POC Chloride Chloride 100 Carbon Dioxide 26.6 Anion Gap 12 POC BUN BUN 42 H Creatinine 6.78 H POC Creatinine Estimated GFR 5 L POC Glucose 162 H 200 H Random Glucose 169 H D Lactic Acid Calcium 9.1 Phosphorus 4.3 D Magnesium Total Bilirubin AST ALT Alkaline Phosphatase Total Creatine Kinase Troponin I Total Protein Albumin 2.9 L Nasal Screen MRSA (PCR) Serum Alcohol Hepatitis A IgM Ab Hep Bs Antigen Hep B Core IgM Ab Hep C IgG Ab Blood Type Antibody Screen 05/04/18 05/04/18 05/04/18 08:11 09:01 11:01 WBC RBC Hgb POC Hgb (Calc) Hct POC Hct MCV MCH MCHC RDW Plt Count MPV Neut % (Auto) Lymph % (Auto) [place] % (Auto) Eos % (Auto) Baso % (Auto) Neut # (Auto) Lymph # (Auto) [place] # (Auto) Eos # (Auto) Baso # (Auto) WBC Differential Differential Comment PT INR APTT Puncture Site Patient Temperature O2 Saturation ABG pH ABG pCO2 ABG pO2 ABG HCO3 ABG O2 Content ABG Base Excess ABG Methemoglobin Norberto Test Hemoglobin Carboxyhemoglobin O2 Delivery Device Liter Flow Inspired O2 Critical Value POC Sodium Sodium POC Potassium Potassium POC Chloride Chloride Carbon Dioxide Anion Gap POC BUN BUN Creatinine POC Creatinine Estimated GFR POC Glucose 214 H 201 H 185 H Random Glucose Lactic Acid Calcium Phosphorus Magnesium Total Bilirubin AST ALT Alkaline Phosphatase Total Creatine Kinase Troponin I Total Protein Albumin Nasal Screen MRSA (PCR) Serum Alcohol Hepatitis A IgM Ab Hep Bs Antigen Hep B Core IgM Ab Hep C IgG Ab Blood Type Antibody Screen Result Diagrams: 05/03/18 04:12 05/04/18 04:13 Imaging: Chest X-Ray 05/02/18 18:16 CONCLUSION: 1. ET tube is 1.5 cm above the nicola and needs withdrawn 1 cm. 2. Diffuse airspace opacities throughout both lungs. Procedures: * 05/02/18 - asystolic arrest, CPR, intubated. Assessment and Plan - Disease Oriented Problem List (1) Cardiac asystole (2) Respiratory failure (3) Hyperkalemia (4) Diabetes Comment: Diagnosed age 20. (5) Hemodialysis access site with arteriovenous graft (6) End stage renal disease on dialysis Comment: On HD for about the past 7 years, last HD on 04/28/18. Missed 05/01 due to diarrhea. Access placed 05/02 and later suffered cardiac arrest. - Symptom Scale (1) Dyspnea 0-10 Scale: Unable to quantify (2) Pain 0-10 Scale: Unable to quantify (3) Myoclonus 0-10 Scale: Unable to quantify Pertinent Non-Medical Issues: Psychosocial: Single. No children. Lives with her mother, Has 2 brothers. Spiritual:Unknown. Legal: Patient is not capacitated to make her own health care decisions at this time, unlikely she will regain capacity. Single. No children. Father . According to [place] statutes, health care proxy decision making falls to her mother, Mell Arreola. Ethical issues impacting care: No known concerns at this time. Important Contacts: * Mell Arreola, mother/HCP: [phone] * Geovanni Arreola, brother: [phone] Prognosis: Patient Alba Arreola is a 47 year old female is a chronically, critically ill patient post witnessed cardiac arrest now with likely anoxic brain injury. Overall prognosis appears poor for meaningful. Code Status: No Code DNR Plan: * Patient is not capacitated to make her own health care decisions at this time , unlikely she will regain capacity. Single. No children. Father . According to [place] statutes, health care proxy decision making falls to her mother, Mell Arreola who is supported by her son (patient's brother) Geovanni. * NO CODE * Goals: NO CODE, desires continued aggressive care short of NO CODE for now. Will follow up with family after MRI results available. * SYMPTOMS: Pain: due to recent cardiac arrest, CPR, debility, tubes and lines. On Precedex. Unresponsive. Dyspnea: Currently on mech vent. Myoclonus: on Keppra. Plan for MRI brain. * Palliative care will continue to follow to assist with symptom management and further clarification of goals of medical treatment throughout hospital course. Attestation Attestation: To help prompt me to consider important information that might be impacting today's encounter and assessment, information from prior notes written by myself or my colleagues may have been "brought forward" into today's note. My signature on this note, however, is an attestation that I personally performed the exam, history, and/or decision-making noted today, and, unless otherwise indicated, the interactions with patient, family, and staff as well as the review of records all occurred today. I also attest that the listed assessment and stated plan reflect my best clinical judgment today based on the combination of historical information, prior notes, and today's exam/ interactions. When time spent is documented, it refers only to time spent today by the signer, or if indicated, combined time spent today by collaborating physician/nurse practitioner.
--- NOTE | 2018-05-04 15:10 | MR ---
EXAM DATE: 05/04/2018 3:03 PM EST AGE/SEX: 48 years / Female INDICATIONS: . Anoxic brain injury. CLINICAL DATA: This is the patient's initial encounter. Patient reports that signs and symptoms have been present for 1 day and indicates a pain score of Nonresponsive. MEDICAL/SURGICAL HISTORY: Hypertension. Diabetes mellitus type II. Renal failure, chronic. Ch olecystectomy. Left BKA. COMPARISON: [facility] [place], MRI BRAIN W/O CONTRAST, 10/28/2017. [facility] [place], MRI BRAIN W/O CONTRAST, 04/30/2017. . TECHNIQUE: Multiplanar, multisequence examination of the brain was performed without contrast. FINDINGS: Cerebrum: The ventricles are normal for age. No evidence of midline shift, mass lesion, hemorrhage or acute infarction. No extraaxial fluid collections are seen. The pituitary gland and suprasellar cistern are normal in configuration. White Matter: No significant signal abnormalities are seen in the white matter. Posterior Fossa: The cerebellum and brainstem are intact. The 4th ventricle is midline. The cerebel lopontine angle is unremarkable. The cerebellar tonsils are normal in position. Diffusion Imaging: No focal areas of restricted diffusion are seen. No evidence of acute infarction . Extracranial: The visualized portions of the orbits are unremarkable. Mild mucosal thickening is not ed within the bilateral sphenoid sinuses, bilateral ethmoid air cells and right maxillary sinus. CONCLUSION: 1. No acute intracranial abnormality. 2. Mild mucosal thickening is noted within the bilateral sphenoid sinuses, bilateral ethmoid air polina ls and right maxillary sinus. Electronically signed by: Clif Aguayo MD 05/04/2018 3:09 PM EST
--- NOTE | 2018-05-04 16:03 | P.PNCC ---
Subjective Subjective Remarks/Hospital Course: Approximately 47-year-old unfortunate female presents status post cardiac arrest. She was in asystole and given 1 epinephrine and had spontaneous return of circulation with an adequate blood pressure. She was intubated with good end -tidal CO2. It was a witnessed cardiac arrest with family performing immediate CPR prior to EMS arrival. History limited given clinical acuity. 05/03: Posturing only. HD today. Appears to have severe anoxic brain injury. 05/04: No change in neurologic function. Continues with severely impaired neuro. MRI pending. Objective Vital Signs / I&O: Vital Signs 05/03/18 16:06 05/03/18 16:56 05/03/18 17:00 Temperature Pulse Rate 102 H 105 H Respiratory Rate 14 18 21 Blood Pressure 148/72 H 163/73 H Pulse Oximetry 99 99 98 05/03/18 18:00 05/03/18 19:00 05/03/18 19:02 Temperature Pulse Rate 93 H 88 88 Respiratory Rate 24 19 16 Blood Pressure 175/72 H 197/77 H Pulse Oximetry 98 98 98 05/03/18 19:32 05/03/18 19:55 05/03/18 20:00 Temperature 100.3 F H Pulse Rate 91 H 94 H Respiratory Rate 22 15 19 Blood Pressure 181/72 H 157/67 H Pulse Oximetry 98 97 98 05/03/18 21:00 05/03/18 22:00 05/03/18 23:00 Temperature Pulse Rate 98 H 99 H 101 H Respiratory Rate 14 15 18 Blood Pressure 165/68 H 171/72 H Pulse Oximetry 97 97 97 05/03/18 23:06 05/03/18 23:14 05/03/18 23:15 Temperature 103.1 F H Pulse Rate 101 H 99 H Respiratory Rate 14 14 14 Blood Pressure 196/74 H 187/75 H Pulse Oximetry 97 97 97 05/03/18 23:21 05/04/18 00:00 05/04/18 01:00 Temperature 102.1 F H Pulse Rate 99 H 90 87 Respiratory Rate 14 14 14 Blood Pressure 179/68 H 152/60 H 146/58 H Pulse Oximetry 97 97 95 05/04/18 02:00 05/04/18 03:00 05/04/18 04:00 Temperature 102.2 F H 100.7 F H 100.7 F H Pulse Rate 88 89 92 H Respiratory Rate 14 14 14 Blood Pressure 145/63 H 160/67 H 177/72 H Pulse Oximetry 96 97 95 05/04/18 04:12 05/04/18 05:00 05/04/18 06:00 Temperature Pulse Rate 86 91 H Respiratory Rate 14 14 14 Blood Pressure 173/68 H 167/70 H Pulse Oximetry 96 98 97 05/04/18 07:00 05/04/18 08:00 05/04/18 08:44 Temperature 102.0 F H Pulse Rate 90 88 Respiratory Rate 16 16 16 Blood Pressure 178/71 H 182/72 H Pulse Oximetry 96 95 97 05/04/18 08:50 05/04/18 09:00 05/04/18 09:22 Temperature Pulse Rate 80 80 80 Respiratory Rate 16 16 16 Blood Pressure 177/72 H 172/73 H Pulse Oximetry 99 100 05/04/18 10:00 05/04/18 11:00 05/04/18 11:52 Temperature Pulse Rate 76 72 77 Respiratory Rate 16 16 14 Blood Pressure 158/66 H 160/70 H Pulse Oximetry 100 100 98 05/04/18 12:00 05/04/18 13:00 05/04/18 14:00 Temperature 101.1 F H Pulse Rate 76 79 84 Respiratory Rate 16 16 16 Blood Pressure 162/67 H 177/72 H 200/84 H Pulse Oximetry 97 100 100 05/04/18 14:16 05/04/18 15:10 05/04/18 15:12 Temperature Pulse Rate 82 92 H 90 Respiratory Rate 16 23 Blood Pressure 154/67 H 187/74 H Pulse Oximetry 99 05/04/18 15:13 05/04/18 15:25 Temperature Pulse Rate 85 Respiratory Rate 16 16 Blood Pressure 162/70 H Pulse Oximetry 96 97 Intake & Output 05/03/18 05/04/18 05/04/18 18:59 06:59 18:59 Intake Total 1314 / 1314 521 / 521 100 / 100 Output Total 4700 / 4700 0 / 0 Balance -3386 / -3386 521 / 521 100 / 100 Weight 122.47 kg Intake: IV 1194 / 1194 110 / 110 100 / 100 NS Inj 1,000 ML @ 84 mls/hr IV. 1084 / 1084 CONT .[id number] [facility] Rx#:[id number] Keppra 1000 mg/100 mL Premix 100 / 100 100 ML @ 400 mls/hr IV.SIG Q12H [facility]URY Rx#:[id number] Keppra Inj 1,000 MG In NS Inj 110 / 110 110 / 110 100 ML @ 400 mls/hr IV.SIG Q12H [facility] Rx#:[id number] Oral 120 / 120 120 / 120 Tube Feeding 291 / 291 Output: Hemodialysis Amount 4700 / 4700 Urine Amount (Catheter) 0 / 0 Indwelling Urethral Catheter 0 / 0 Result Diagrams: 05/03/18 04:12 05/04/18 04:13 Objective Remarks: - Constitutional profound neurological impairment Comments: Partial facial seizures versus myoclonic jerks, unresponsive to verbal or painful stimuli - Routine HEENT Exam Head: Present: normocephalic, atraumatic Eye: Present: PERRL, normal accommodation ENT: Present: mucous membranes moist - Routine Neck Exam Present: supple, full ROM. Absent: JVD, carotid bruit - Routine Chest/Breast/Axilla Exam Chest wall: Absent: tenderness - Routine Respiratory Exam Present: patient mechanically ventilated. Good jasmyn air movementAbsent: rhonchi , stridor, wheezes - Routine Cardiovascular Exam Present: RRR, S1, S2, no JVD - Routine Abdominal Exam Present: soft, normoactive bowel sounds. Absent: tenderness, distended - Routine Extremities Exam S/P right BKA Absent: cyanosis, clubbing, edema - Routine Skin Exam Present: intact. Absent: cyanosis, erythema - Routine Neurological Exam Patient remains comatose with periodic myoclonic jerks and posturing, extension to painful stimuli in upper extremities Assessment and Plan - Assessment and Plan Plan: Respiratory failure -Intubated for an airway protection -No weaning until neurologically improve -Vent bundle -DuoNeb scheduled and as needed -SBTs daily Cardiac arrest -Unclear etiology -Series of troponins and EKGs to rule out acute coronary syndrome -Monitor for normothermia -Patient in need of emergent hemodialysis, benefit of therapeutic hypothermia and hypothermia catheter placement inferior to urgency of hemodialysis -> done End-stage renal disease -Hemodialysis per nephrology Diabetes mellitus -Insulin drip, converted to levemir and SSI 05/03 Altered mental status -Status post cardiac arrest -Clinical signs of anoxic brain damage -EEG to rule out seizure -Neurology evaluation, seen -Palliative care consult DVT GI prophylaxis -Teds SCDs -Subcu heparin -Pepcid Overall impression: Critically ill with unstable neurological status and ventilator dependence. Respiratory effort unsatisfactory to attempt weaning from ventilator. Neurological status remains unstable. Critical care 37 mins
--- NOTE | 2018-05-04 16:05 | P.PNNP ---
Subjective Interval history: Patient remains intubated opens eyes does not follow remains critically ill status post cardiac arrest Physical Exam Vital signs: Vital Signs 05/03/18 16:06 05/03/18 16:56 05/03/18 17:00 Temperature Pulse Rate 102 H 105 H Respiratory Rate 14 18 21 Blood Pressure 148/72 H 163/73 H Pulse Oximetry 99 99 98 05/03/18 18:00 05/03/18 19:00 05/03/18 19:02 Temperature Pulse Rate 93 H 88 88 Respiratory Rate 24 19 16 Blood Pressure 175/72 H 197/77 H Pulse Oximetry 98 98 98 05/03/18 19:32 05/03/18 19:55 05/03/18 20:00 Temperature 100.3 F H Pulse Rate 91 H 94 H Respiratory Rate 22 15 19 Blood Pressure 181/72 H 157/67 H Pulse Oximetry 98 97 98 05/03/18 21:00 05/03/18 22:00 05/03/18 23:00 Temperature Pulse Rate 98 H 99 H 101 H Respiratory Rate 14 15 18 Blood Pressure 165/68 H 171/72 H Pulse Oximetry 97 97 97 05/03/18 23:06 05/03/18 23:14 05/03/18 23:15 Temperature 103.1 F H Pulse Rate 101 H 99 H Respiratory Rate 14 14 14 Blood Pressure 196/74 H 187/75 H Pulse Oximetry 97 97 97 05/03/18 23:21 05/04/18 00:00 05/04/18 01:00 Temperature 102.1 F H Pulse Rate 99 H 90 87 Respiratory Rate 14 14 14 Blood Pressure 179/68 H 152/60 H 146/58 H Pulse Oximetry 97 97 95 05/04/18 02:00 05/04/18 03:00 05/04/18 04:00 Temperature 102.2 F H 100.7 F H 100.7 F H Pulse Rate 88 89 92 H Respiratory Rate 14 14 14 Blood Pressure 145/63 H 160/67 H 177/72 H Pulse Oximetry 96 97 95 05/04/18 04:12 05/04/18 05:00 05/04/18 06:00 Temperature Pulse Rate 86 91 H Respiratory Rate 14 14 14 Blood Pressure 173/68 H 167/70 H Pulse Oximetry 96 98 97 05/04/18 07:00 05/04/18 08:00 05/04/18 08:44 Temperature 102.0 F H Pulse Rate 90 88 Respiratory Rate 16 16 16 Blood Pressure 178/71 H 182/72 H Pulse Oximetry 96 95 97 05/04/18 08:50 05/04/18 09:00 05/04/18 09:22 Temperature Pulse Rate 80 80 80 Respiratory Rate 16 16 16 Blood Pressure 177/72 H 172/73 H Pulse Oximetry 99 100 05/04/18 10:00 05/04/18 11:00 05/04/18 11:52 Temperature Pulse Rate 76 72 77 Respiratory Rate 16 16 14 Blood Pressure 158/66 H 160/70 H Pulse Oximetry 100 100 98 05/04/18 12:00 05/04/18 13:00 05/04/18 14:00 Temperature 101.1 F H Pulse Rate 76 79 84 Respiratory Rate 16 16 16 Blood Pressure 162/67 H 177/72 H 200/84 H Pulse Oximetry 97 100 100 05/04/18 14:16 05/04/18 15:10 05/04/18 15:12 Temperature Pulse Rate 82 92 H 90 Respiratory Rate 16 23 Blood Pressure 154/67 H 187/74 H Pulse Oximetry 99 05/04/18 15:13 05/04/18 15:25 Temperature Pulse Rate 85 Respiratory Rate 16 16 Blood Pressure 162/70 H Pulse Oximetry 96 97 Intake & Output 05/03/18 05/04/18 05/04/18 18:59 06:59 18:59 Intake Total 1314 / 1314 521 / 521 100 / 100 Output Total 4700 / 4700 0 / 0 Balance -3386 / -3386 521 / 521 100 / 100 Weight 122.47 kg Intake: IV 1194 / 1194 110 / 110 100 / 100 NS Inj 1,000 ML @ 84 mls/hr IV. 1084 / 1084 CONT .[id number] [facility] Rx#:[id number] Keppra 1000 mg/100 mL Premix 100 / 100 100 ML @ 400 mls/hr IV.SIG Q12H [facility] Rx#:[id number] Keppra Inj 1,000 MG In NS Inj 110 / 110 110 / 110 100 ML @ 400 mls/hr IV.SIG Q12H [facility] Rx#:[id number] Oral 120 / 120 120 / 120 Tube Feeding 291 / 291 Output: Hemodialysis Amount 4700 / 4700 Urine Amount (Catheter) 0 / 0 Indwelling Urethral Catheter 0 / 0 Narrative: GENERAL: Well-nourished, well-developed intubated patient. SKIN: Warm and dry. HEAD: Normocephalic. EYES: No scleral icterus. No injection or drainage. NECK: Supple, trachea midline. No JVD or lymphadenopathy. CARDIOVASCULAR: Regular rate and rhythm without murmurs, gallops, or rubs. RESPIRATORY: Breath sounds coarse breath sounds and bilateral rhonchi. GASTROINTESTINAL: Abdomen soft, non-tender, nondistended. EXTREMITIES: Right below-knee amputation left leg mild edema NEUROLOGICAL: Patient is under no sedation unresponsive intubated on respond as above - Urinary Catheter Management Indwelling Urethral Catheter Cath placed during this visit: no Assessment and Plan - Assessment (1) End stage renal disease on dialysis Code(s): N18.6 - End stage renal disease; Z99.2 - Dependence on renal dialysis Status: Acute (2) Diabetes Code(s): E11.9 - Type 2 diabetes mellitus without complications Status: Acute - Plan Patient had emergent hemodialysis yesterday Next dialysis tomorrow And anoxic encephalopathy after cardiac arrest Hyperkalemia resolved Continue hemodialysis support on Tuesday, Tuesday and Tuesday patient remains intubated Patient critically ill Next hemodialysis will be done tomorrow Prognosis is guarded
--- NOTE | 2018-05-04 21:29 | P.PNNEU ---
Subjective Subjective Comments: nonresponsive to sternal rub Pupils 2 mm equal and reactive. No gaze deviation MOTOR--posturing LUE Active Medications: Active Medications Acetaminophen (Tylenol) 650 mg PO Q6H PRN PRN Reason: PAIN 1-10 AND/OR FEVER >101F Last Admin: 05/03/18 23:13 Dose: 650 mg Al Hydroxide/Mg Hydroxide (Milk Of Neville Fabianq) 30 ml PO Q12H PRN PRN Reason: Mild Constipation Albuterol (Duoneb Neb (Prn)) 1 ampul NEB Q2HR NEB PRN PRN Reason: WHEEZING Last Admin: 05/04/18 11:55 Dose: 1 ampul Amlodipine Besylate (Norvasc) 10 mg PO DAILY [facility] Last Admin: 05/04/18 08:20 Dose: 10 mg Bisacodyl (Dulcolax Supp) 10 mg RECTAL DAILY PRN PRN Reason: SEVERE CONSITIPATION Chlorhexidine Gluconate (Chlorhexidine 2% Cloth) 3 pack TOPICAL DAILY@0400 [facility] Stop: 05/08/18 03:59 Last Admin: 05/04/18 05:03 Dose: 3 pack Chlorhexidine Gluconate (Chlorhexidine 2% Cloth) 3 pack TOPICAL DAILY@0400 PRN PRN Reason: Extra cloth needed Stop: 05/08/18 03:59 Chlorhexidine Gluconate (Peridex 0.12% Oral Kit) 15 ml OROPHARYNG BID@0800, 2000 [facility] Last Admin: 05/04/18 21:21 Dose: 15 ml Dextrose (D50w Vial) 50 ml IV.PUSH UNSCH PRN PRN Reason: PER HYPOGLYCEMIA PROTOCOL Diphenhydramine HCl (Benadryl) 25 mg PO UNSCH PRN PRN Reason: SEE LABEL COMMENTS Epoetin Xavier (Epogen Inj) 4,000 unit IV.PUSH UNSCH PRN PRN Reason: SEE LABEL COMMENTS Last Admin: 05/03/18 13:35 Dose: 4,000 unit Famotidine (Pepcid Pf Inj) 10 mg IV.PUSH Q12HR [facility] Last Admin: 05/04/18 21:22 Dose: 10 mg Gelatin (Gelfoam 12 Mm/7 Mm Topical) 1 foam TOPICAL PRN PRN PRN Reason: help stop bleeding from site Gentamicin Sulfate (Gentamicin Inj) 20 mg OTHER WITH DIALYSIS PRN PRN Reason: Dwell Gentamycin Lock Last Admin: 05/03/18 13:35 Dose: 20 mg Heparin Sodium (Porcine) (Heparin Inj) 8,000 units OTHER WITH DIALYSIS PRN PRN Reason: for machine prime Heparin Sodium (Porcine) (Heparin Inj) 1,000 units OTHER WITH DIALYSIS PRN PRN Reason: Dwell Heparin to Fill Catheter Last Admin: 05/03/18 13:34 Dose: 1,000 units Heparin Sodium (Porcine) (Heparin Inj) 5,000 units SQ Q8H [facility]UR[facility] Last Admin: 05/04/18 21:18 Dose: 5,000 units Hydralazine HCl (Apresoline Inj) 20 mg IV.PUSH Q4H PRN PRN Reason: SBP > 160 Last Admin: 05/04/18 14:16 Dose: 20 mg Hydralazine HCl (Apresoline) 100 mg PO Q8H [facility]URY Last Admin: 05/04/18 17:27 Dose: 100 mg Hydromorphone HCl (Dilaudid Pf Inj) 1 mg IV.PUSH Q4H PRN PRN Reason: PAIN SCALE 6 TO 10 Last Admin: 05/04/18 14:16 Dose: 1 mg Albumin Human (Flexbumin 25% Inj) 100 mls @ 60 mls/hr IV.SIG WITH DIALYSIS PRN PRN Reason: hypotension / volume replace Sodium Chloride (Ns Inj) 1,000 mls @ 0 mls/hr OTHER .Q0M PRN PRN Reason: for prime and rinse back Sodium Chloride (Ns Inj) 1,000 mls @ 200 mls/hr OTHER .Q5H PRN PRN Reason: for dialyzer flush PRN Sodium Chloride (Ns Inj) 1,000 mls @ 0 mls/hr IV.CONT .Q0M PRN PRN Reason: hypotension / volume replace Insulin Human Regular 100 unit (/ Sodium Chloride) 100 mls @ 0 mls/hr IV.CONT TITRATE PRN; Protocol PRN Reason: See protocol Last Titration: 05/04/18 17:00 Dose: 4 units/hr, 4 mls/hr Levetiracetam (Keppra 1000 Mg/100 Ml Premix) 100 mls @ 400 mls/hr IV.SIG Q8HR NURY Fosphenytoin Sodium 1,000 mgpe (/ Sodium Chloride) 70 mls @ 280 mls/hr IV.SIG ONCE ONE Stop: 05/04/18 21:40 Fosphenytoin Sodium 100 mgpe/ (Sodium Chloride) 52 mls @ 208 mls/hr IV.SIG Q8HR [facility] Lactulose (Lactulose Liq) 30 ml PO DAILY PRN PRN Reason: SEVERE CONSITIPATION Mannitol (Mannitol Inj) 12.5 gm IV.PUSH UNSCH PRN PRN Reason: hypotension / volume replace Metoprolol Tartrate (Lopressor) 50 mg PO BID [facility] Last Admin: 05/04/18 21:22 Dose: 50 mg Midazolam HCl (Versed Inj) 2 mg IV.PUSH Q1H PRN PRN Reason: SEDATION Last Admin: 05/03/18 11:54 Dose: 2 mg Miscellaneous (Pill Splitter) 1 each OTHER UNSCH PRN PRN Reason: PILL SPLITTER Miscellaneous Medication () 1 each OROPHARYNG 0000,0400,1200,1600 [facility] Last Admin: 05/04/18 17:27 Dose: 1 each Nitroglycerin (Nitrostat Sl) 0.4 mg SL Q5M PRN PRN Reason: CHEST PAIN Ondansetron HCl (Zofran Inj) 4 mg IV.PUSH UNSCH PRN PRN Reason: NAUSEA OR VOMITING Ondansetron HCl (Zofran Inj) 4 mg IV.PUSH Q6H PRN PRN Reason: NAUSEA OR VOMITING Senna/Docusate Sodium (Fabienne-Colace) 1 tab PO BID [facility] Last Admin: 05/04/18 21:22 Dose: 1 tab Sennosides (Senokot) 17.2 mg PO Q12H PRN PRN Reason: Moderate Constipation Sodium Chloride (Ns Flush) 5 ml IV.FLUSH PRN PRN PRN Reason: flush each lumen during HD Sodium Chloride (Ns Flush) 2 ml IV.FLUSH BID [facility] Last Admin: 05/04/18 08:22 Dose: 2 ml Sodium Chloride (Ns Flush) 2 ml IV.FLUSH PRN PRN PRN Reason: FLUSH AFTER USING IV ACCESS Allergies/Adverse Reactions: Allergies Allergy/AdvReac Type Severity Reaction Status Date / Time codeine Allergy Hives Verified 05/02/18 19:45 iodine Allergy Hives Verified 05/02/18 19:45 lisinopril Allergy Hives Verified 05/02/18 19:45 Penicillins Allergy Hives Verified 05/02/18 19:45 vancomycin Allergy Hives Verified 05/02/18 19:45 Physical Exam Vital signs: Vital Signs 05/03/18 22:00 05/03/18 23:00 05/03/18 23:06 Temperature 103.1 F H Pulse Rate 99 H 101 H 101 H Respiratory Rate 15 18 14 Blood Pressure 171/72 H 196/74 H Pulse Oximetry 97 97 97 05/03/18 23:14 05/03/18 23:15 05/03/18 23:21 Temperature Pulse Rate 99 H 99 H Respiratory Rate 14 14 14 Blood Pressure 187/75 H 179/68 H Pulse Oximetry 97 97 97 05/04/18 00:00 05/04/18 01:00 05/04/18 02:00 Temperature 102.1 F H 102.2 F H Pulse Rate 90 87 88 Respiratory Rate 14 14 14 Blood Pressure 152/60 H 146/58 H 145/63 H Pulse Oximetry 97 95 96 05/04/18 03:00 05/04/18 04:00 05/04/18 04:12 Temperature 100.7 F H 100.7 F H Pulse Rate 89 92 H Respiratory Rate 14 14 14 Blood Pressure 160/67 H 177/72 H Pulse Oximetry 97 95 96 05/04/18 05:00 05/04/18 06:00 05/04/18 07:00 Temperature Pulse Rate 86 91 H 90 Respiratory Rate 14 14 16 Blood Pressure 173/68 H 167/70 H 178/71 H Pulse Oximetry 98 97 96 05/04/18 08:00 05/04/18 08:44 05/04/18 08:50 Temperature 102.0 F H Pulse Rate 88 80 Respiratory Rate 16 16 16 Blood Pressure 182/72 H Pulse Oximetry 95 97 05/04/18 09:00 05/04/18 09:22 05/04/18 10:00 Temperature Pulse Rate 80 80 76 Respiratory Rate 16 16 16 Blood Pressure 177/72 H 172/73 H 158/66 H Pulse Oximetry 99 100 100 05/04/18 11:00 05/04/18 11:52 05/04/18 12:00 Temperature Pulse Rate 72 77 76 Respiratory Rate 16 14 16 Blood Pressure 160/70 H 162/67 H Pulse Oximetry 100 98 97 05/04/18 13:00 05/04/18 14:00 05/04/18 14:16 Temperature 101.1 F H Pulse Rate 79 84 82 Respiratory Rate 16 16 16 Blood Pressure 177/72 H 200/84 H 154/67 H Pulse Oximetry 100 100 99 05/04/18 15:10 05/04/18 15:12 05/04/18 15:13 Temperature Pulse Rate 92 H 90 Respiratory Rate 23 16 Blood Pressure 187/74 H Pulse Oximetry 96 05/04/18 15:25 05/04/18 16:00 05/04/18 16:05 Temperature Pulse Rate 85 80 80 Respiratory Rate 16 16 16 Blood Pressure 162/70 H 151/68 H Pulse Oximetry 97 96 95 05/04/18 16:58 05/04/18 17:00 05/04/18 17:58 Temperature 100.1 F H Pulse Rate 81 81 87 Respiratory Rate 16 16 16 Blood Pressure 155/63 H 152/60 H Pulse Oximetry 96 96 96 05/04/18 18:00 Temperature Pulse Rate 87 Respiratory Rate 16 Blood Pressure Pulse Oximetry 96 Intake & Output 05/04/18 05/04/18 05/05/18 06:59 18:59 06:59 Intake Total 521 / 521 542 / 542 Output Total 0 / 0 Balance 521 / 521 542 / 542 Weight 122.47 kg Intake: IV 110 / 110 100 / 100 Keppra 1000 mg/100 mL Premix 100 / 100 100 ML @ 400 mls/hr IV.SIG Q12H [facility] Rx#:[id number] Keppra Inj 1,000 MG In NS Inj 110 / 110 100 ML @ 400 mls/hr IV.SIG Q12H [facility] Rx#:[id number] Oral 120 / 120 Tube Feeding 291 / 291 292 / 292 Tube Irrigant 150 / 150 Output: Urine Amount (Catheter) 0 / 0 Indwelling Urethral Catheter 0 / 0 Other: # Bowel Movements 0 - Urinary Catheter Management Indwelling Urethral Catheter Cath placed during this visit: no Objective Radiology Results: mri brain--negative EEG--burst suppression pattern Laboratory Results - last 24 hr 05/03/18 05/03/18 05/04/18 22:07 23:08 00:13 Sodium Potassium Chloride Carbon Dioxide Anion Gap BUN Creatinine Estimated GFR POC Glucose 160 H 154 H 159 H Random Glucose Calcium Phosphorus Albumin 05/04/18 05/04/18 05/04/18 01:11 02:13 03:05 Sodium Potassium Chloride Carbon Dioxide Anion Gap BUN Creatinine Estimated GFR POC Glucose 146 H 168 H 158 H Random Glucose Calcium Phosphorus Albumin 05/04/18 05/04/18 05/04/18 04:06 04:13 05:01 Sodium 139 Potassium 4.3 D Chloride 100 Carbon Dioxide 26.6 Anion Gap 12 BUN 42 H Creatinine 6.78 H Estimated GFR 5 L POC Glucose 169 H 162 H Random Glucose 169 H D Calcium 9.1 Phosphorus 4.3 D Albumin 2.9 L 05/04/18 05/04/18 05/04/18 06:10 08:11 09:01 Sodium Potassium Chloride Carbon Dioxide Anion Gap BUN Creatinine Estimated GFR POC Glucose 200 H 214 H 201 H Random Glucose Calcium Phosphorus Albumin 05/04/18 05/04/18 05/04/18 11:01 14:14 16:48 Sodium Potassium Chloride Carbon Dioxide Anion Gap BUN Creatinine Estimated GFR POC Glucose 185 H 162 H 239 H Random Glucose Calcium Phosphorus Albumin 05/04/18 05/04/18 05/04/18 18:05 18:57 19:58 Sodium Potassium Chloride Carbon Dioxide Anion Gap BUN Creatinine Estimated GFR POC Glucose 235 H 232 H 230 H Random Glucose Calcium Phosphorus Albumin 05/04/18 20:59 Sodium Potassium Chloride Carbon Dioxide Anion Gap BUN Creatinine Estimated GFR POC Glucose 200 H Random Glucose Calcium Phosphorus Albumin Review/Management - Review/Management Plan: severe anoxic encephalopathy. prognosis poor add cerebyx and repeat eeg tomorrow
[2018-05-04] MEDS ORDERED: Fosphenytoin Inj 1,000 MGPE in Sodium Chlor 0.9% Inj 50 ML IV.SIG ONE (22:00)
[2018-05-04] MEDS ORDERED: Fosphenytoin Inj 100 MGPE in Sodium Chlor 0.9% Inj 50 ML IV.SIG SCH (22:00)
[2018-05-04] MEDS: levETIRAcetam 1000mg/100mL Inj 100 ML IV.SIG SCH (23:53)
[2018-05-05] MEDS: Oral Hygiene Kit OROPHARYNG SCH ×4 (03:16→16:28)
[2018-05-05] MEDS: Chlorhexidine Gluconate 2% 1 Pack (2 Cloths) TOPICAL SCH (04:16)
[2018-05-05] MEDS: Heparin - SQ 10,000 UNITS/ML Vial SQ SCH ×3 (04:16→20:09)
[2018-05-05 04:30] LABS: Baso % (Auto) 0.4 % (0.0-2.0); Hematocrit 33.8 % (35.0-46.0); Hemoglobin 10.9 gm/dL (11.6-15.3); Lymph # (Auto) 0.6 th/mm3 (1.0-4.8); Lymph % (Auto) 5.1 % (9.0-44.0); Mean Corpuscular HGB Conc 32.3 % (32.0-36.0); Mean Corpuscular Hemoglobin 27.8 pg (27.0-34.0); Mean Corpuscular Volume 85.9 fL (80.0-100.0); Mean Platelet Volume 8.4 fL (7.0-11.0); Mono # (Auto) 1.1 th/mm3 (0.0-0.9); Mono % (Auto) 9.1 % (0.0-8.0); Neut # (Auto) 10.8 th/mm3 (1.8-7.7); Neut % (Auto) 85.4 % (16.0-70.0); Platelet Count 260 th/mm3 (150-450); Red Blood Count 3.93 mil/mm3 (4.00-5.30); Red Cell Distribution Width 18.8 % (11.6-17.2); White Blood Count 12.6 th/mm3 (4.0-11.0)
[2018-05-05 04:54] LABS: Albumin 2.9 g/dL (3.4-5.0); Carbon Dioxide 26.9 meq/L (21.0-32.0); Phosphorus 6.2 mg/dL (2.5-4.9); Potassium 4.7 meq/L (3.5-5.1)
[2018-05-05 05:00] LABS: Phenytoin (Dilantin) 7.9 mcg/mL (10.0-20.0)
[2018-05-05] MEDS: levETIRAcetam 1000mg/100mL Inj 100 ML IV.SIG SCH ×3 (05:40→21:10)
[2018-05-05] MEDS: Fosphenytoin Inj 100 MGPE in Sodium Chlor 0.9% Inj 50 ML IV.SIG SCH ×3 (05:41→21:10)
[2018-05-05] MEDS: Senna/Docusate Sodium 8.6/50 MG Tablet PO SCH ×2 (08:08→20:09)
[2018-05-05] MEDS: Famotidine PF Inj 20 MG/2 ML Vial IV.PUSH SCH ×2 (08:08→20:08)
[2018-05-05] MEDS: Metoprolol Tartrate 50 MG Tablet PO SCH ×2 (08:08→20:09)
[2018-05-05] MEDS: amLODIPine 10 MG Tablet PO SCH (08:08)
[2018-05-05] MEDS: Chlorhexidine 0.12% Oral Kit 15 ML UDC OROPHARYNG SCH ×2 (08:09→20:09)
[2018-05-05] MEDS ORDERED: Dextrose 50% in Water 50 ML Vial IV.PUSH PRN (14:09)
--- NOTE | 2018-05-05 14:15 | P.PNCC ---
Subjective Subjective Remarks/Hospital Course: Approximately 47-year-old unfortunate female presents status post cardiac arrest. She was in asystole and given 1 epinephrine and had spontaneous return of circulation with an adequate blood pressure. She was intubated with good end -tidal CO2. It was a witnessed cardiac arrest with family performing immediate CPR prior to EMS arrival. History limited given clinical acuity. 05/03: Posturing only. HD today. Appears to have severe anoxic brain injury. 05/04: No change in neurologic function. Continues with severely impaired neuro. MRI not diagnostic. 05/05: Remains in coma. Burst suppression pattern on EEG. Dilantin added. CODE STATUS is now DNR. Improvement in neurologic function is highly unlikely at this point. We will continue discussed with the family. Objective Vital Signs / I&O: Vital Signs 05/04/18 14:16 05/04/18 15:10 05/04/18 15:12 Temperature Pulse Rate 82 92 H 90 Respiratory Rate 16 23 Blood Pressure 154/67 H 187/74 H Pulse Oximetry 99 05/04/18 15:13 05/04/18 15:25 05/04/18 16:00 Temperature Pulse Rate 85 80 Respiratory Rate 16 16 16 Blood Pressure 162/70 H Pulse Oximetry 96 97 96 05/04/18 16:05 05/04/18 16:58 05/04/18 17:00 Temperature 100.1 F H Pulse Rate 80 81 81 Respiratory Rate 16 16 16 Blood Pressure 151/68 H 155/63 H Pulse Oximetry 95 96 96 05/04/18 17:58 05/04/18 18:00 05/04/18 19:58 Temperature Pulse Rate 87 87 90 Respiratory Rate 16 16 16 Blood Pressure 152/60 H 166/74 H Pulse Oximetry 96 96 96 05/04/18 20:00 05/04/18 20:58 05/04/18 21:00 Temperature 99.1 F Pulse Rate 90 91 H 91 H Respiratory Rate 16 16 16 Blood Pressure 161/66 H Pulse Oximetry 97 97 97 05/04/18 21:20 05/04/18 21:59 05/04/18 22:00 Temperature Pulse Rate 79 79 Respiratory Rate 16 16 16 Blood Pressure 138/78 Pulse Oximetry 96 97 97 05/04/18 22:58 05/04/18 23:00 05/04/18 23:58 Temperature Pulse Rate 77 77 76 Respiratory Rate 16 16 16 Blood Pressure 159/72 H 158/70 H Pulse Oximetry 99 100 99 05/05/18 00:00 05/05/18 00:38 05/05/18 00:58 Temperature 100.9 F H Pulse Rate 76 75 Respiratory Rate 19 16 16 Blood Pressure 151/67 H Pulse Oximetry 99 99 99 05/05/18 01:00 05/05/18 01:58 05/05/18 02:00 Temperature Pulse Rate 75 79 79 Respiratory Rate 16 16 16 Blood Pressure 158/71 H Pulse Oximetry 98 98 98 05/05/18 02:58 05/05/18 03:00 05/05/18 03:58 Temperature Pulse Rate 80 80 79 Respiratory Rate 16 16 17 Blood Pressure 152/67 H 150/67 H Pulse Oximetry 98 98 97 05/05/18 04:00 05/05/18 04:14 05/05/18 04:58 Temperature 100.3 F H Pulse Rate 79 77 Respiratory Rate 17 16 16 Blood Pressure 147/63 H Pulse Oximetry 97 97 97 05/05/18 05:00 05/05/18 05:58 05/05/18 06:00 Temperature Pulse Rate 77 77 77 Respiratory Rate 16 17 16 Blood Pressure 151/67 H Pulse Oximetry 97 98 98 05/05/18 06:58 05/05/18 07:00 05/05/18 08:00 Temperature 100.4 F H Pulse Rate 81 81 85 Respiratory Rate 16 16 16 Blood Pressure 166/72 H 175/71 H Pulse Oximetry 97 97 97 05/05/18 09:01 05/05/18 09:08 05/05/18 10:00 Temperature Pulse Rate 81 74 Respiratory Rate 16 16 16 Blood Pressure 174/73 H Pulse Oximetry 97 97 96 05/05/18 10:02 05/05/18 11:00 05/05/18 11:02 Temperature Pulse Rate 74 76 75 Respiratory Rate 16 16 16 Blood Pressure 161/70 H 164/72 H Pulse Oximetry 96 97 97 05/05/18 12:00 05/05/18 12:02 05/05/18 13:00 Temperature 100.4 F H Pulse Rate 76 76 78 Respiratory Rate 16 16 16 Blood Pressure 169/71 H Pulse Oximetry 97 97 97 05/05/18 13:02 05/05/18 13:20 05/05/18 13:43 Temperature Pulse Rate 78 81 Respiratory Rate 16 16 16 Blood Pressure 173/72 H 181/74 H Pulse Oximetry 97 97 98 05/05/18 13:45 05/05/18 13:58 05/05/18 14:00 Temperature Pulse Rate 81 84 84 Respiratory Rate 16 16 16 Blood Pressure 187/78 H 191/79 H Pulse Oximetry 98 97 97 Intake & Output 05/04/18 05/05/18 05/05/18 18:59 06:59 18:59 Intake Total 542 / 542 675 / 675 Balance 542 / 542 675 / 675 Weight 122.47 kg Intake: IV 100 / 100 222 / 222 Cerebyx Inj 100 MGPE In NS Inj 52 / 52 50 ML @ 208 mls/hr IV.SIG Q8HR NURY Rx#:[id number] Cerebyx Inj 1,000 MGPE In NS 70 / 70 Inj 50 ML @ 280 mls/hr IV.SIG ONCE ONE Rx#:[id number] Keppra 1000 mg/100 mL Premix 100 / 100 100 / 100 100 ML @ 400 mls/hr IV.SIG Q8HR NURY Rx#:[id number] Oral 120 / 120 Tube Feeding 292 / 292 333 / 333 Tube Irrigant 150 / 150 Other: # Bowel Movements 0 0 Result Diagrams: 05/05/18 04:13 05/05/18 04:13 Objective Remarks: - Constitutional profound neurological impairment Comments: Few persistent myoclonic jerks, unresponsive to verbal or painful stimuli - Routine HEENT Exam Head: Present: normocephalic, atraumatic Eye: Present: PERRL, normal accommodation ENT: Present: mucous membranes moist - Routine Neck Exam Present: supple, full ROM. Absent: JVD, carotid bruit - Routine Chest/Breast/Axilla Exam Chest wall: Absent: tenderness - Routine Respiratory Exam Present: patient mechanically ventilated. Good jasmyn air movement on ventilator.. Absent: rhonchi, stridor, wheezes - Routine Cardiovascular Exam Present: RRR, S1, S2, no JVD - Routine Abdominal Exam Present: soft, normoactive bowel sounds. Absent: tenderness, distended - Routine Extremities Exam S/P right BKA Absent: cyanosis, clubbing, edema - Routine Skin Exam Present: intact. Absent: cyanosis, erythema - Routine Neurological Exam Patient remains comatose with occasional myoclonic jerks and posturing, extension to painful stimuli in upper extremities Assessment and Plan - Assessment and Plan Plan: Respiratory failure -Intubated for an airway protection -No weaning until neurologically improve -Vent bundle -DuoNeb scheduled and as needed -SBTs daily Cardiac arrest -Unclear etiology -Series of troponins and EKGs to rule out acute coronary syndrome -Monitor for normothermia -Patient in need of emergent hemodialysis, benefit of therapeutic hypothermia and hypothermia catheter placement inferior to urgency of hemodialysis -> done, scheduled End-stage renal disease -Hemodialysis per nephrology Diabetes mellitus -Insulin drip, converted to levemir and SSI 05/03 Altered mental status -Status post cardiac arrest -Clinical signs of anoxic brain damage -EEG to rule out seizure -Neurology evaluation, seen -Palliative care consult -No improvement in neurologic function. -Persistent burst suppression pattern on EEG DVT GI prophylaxis -Teds SCDs -Subcu heparin -Pepcid Overall impression: Critically ill with unstable neurological status and ventilator dependence. Respiratory effort unsatisfactory to attempt weaning from ventilator. Neurological status remains unstable. Prognosis grim. Critical care 35 minutes
[2018-05-05] MEDS: hydrALAZINE HCl Inj 20 MG/ML Vial IV.PUSH PRN (15:09)
[2018-05-05] MEDS: HYDROmorphone PF Inj 1 MG/ML Ampul IV.PUSH PRN (15:09)
[2018-05-05] MEDS: Heparin 10,000 UNITS/10 ML Vial (for IV use) OTHER PRN (15:55)
--- NOTE | 2018-05-05 16:09 | P.PNPAL ---
Reason for Visit Reason for visit: a. To assist with evaluation and management of symptoms including: pain, encephalopathy, myoclonus/seizure. b. To assist medical decision maker(s) with: better understanding of current medical conditions; weighing benefits/burdens of medical treatment options; making medical treatment decisions. Subjective Subjective/Interval History: Patient seen and examined in ICU. Discussed with Dr. Thakur and nurse. No family at bedside. Patient remains unresponsive on mech vent. Off sedation. Intermittent hypertension. Post hemodialysis on 05/03 with removal of 4.7 L. WBC 12.6. Tmax 100.4. MRI no acute intracranial abnormality, mild mucosal thickening noted in the bilateral sphenoid sinuses, bilateral ethmoid air cells and right maxillary sinus. Advance Directives Living Will: Never completed Health Care Surrogate: Never completed Durable Power of Concrete Pile Driver Operator: Never completed Health Care Surrogate Name and Number: HCP: Mell Arreola, mother: [phone] Significant change in goals:: NO CODE. Will attempt further clarify goals of medical treatment once EEG results are back. Objective Vital Signs: Vital Signs 05/04/18 16:00 05/04/18 16:05 05/04/18 16:58 Temperature 100.1 F H Pulse Rate 80 80 81 Respiratory Rate 16 16 16 Blood Pressure 151/68 H 155/63 H Pulse Oximetry 96 95 96 05/04/18 17:00 05/04/18 17:58 05/04/18 18:00 Temperature Pulse Rate 81 87 87 Respiratory Rate 16 16 16 Blood Pressure 152/60 H Pulse Oximetry 96 96 96 05/04/18 19:58 05/04/18 20:00 05/04/18 20:58 Temperature 99.1 F Pulse Rate 90 90 91 H Respiratory Rate 16 16 16 Blood Pressure 166/74 H 161/66 H Pulse Oximetry 96 97 97 05/04/18 21:00 05/04/18 21:20 05/04/18 21:59 Temperature Pulse Rate 91 H 79 Respiratory Rate 16 16 16 Blood Pressure 138/78 Pulse Oximetry 97 96 97 05/04/18 22:00 05/04/18 22:58 05/04/18 23:00 Temperature Pulse Rate 79 77 77 Respiratory Rate 16 16 16 Blood Pressure 159/72 H Pulse Oximetry 97 99 100 05/04/18 23:58 05/05/18 00:00 05/05/18 00:38 Temperature 100.9 F H Pulse Rate 76 76 Respiratory Rate 16 19 16 Blood Pressure 158/70 H Pulse Oximetry 99 99 99 05/05/18 00:58 05/05/18 01:00 05/05/18 01:58 Temperature Pulse Rate 75 75 79 Respiratory Rate 16 16 16 Blood Pressure 151/67 H 158/71 H Pulse Oximetry 99 98 98 05/05/18 02:00 05/05/18 02:58 05/05/18 03:00 Temperature Pulse Rate 79 80 80 Respiratory Rate 16 16 16 Blood Pressure 152/67 H Pulse Oximetry 98 98 98 05/05/18 03:58 05/05/18 04:00 05/05/18 04:14 Temperature 100.3 F H Pulse Rate 79 79 Respiratory Rate 17 17 16 Blood Pressure 150/67 H Pulse Oximetry 97 97 97 05/05/18 04:58 05/05/18 05:00 05/05/18 05:58 Temperature Pulse Rate 77 77 77 Respiratory Rate 16 16 17 Blood Pressure 147/63 H 151/67 H Pulse Oximetry 97 97 98 05/05/18 06:00 05/05/18 06:58 05/05/18 07:00 Temperature Pulse Rate 77 81 81 Respiratory Rate 16 16 16 Blood Pressure 166/72 H Pulse Oximetry 98 97 97 05/05/18 08:00 05/05/18 09:01 05/05/18 09:08 Temperature 100.4 F H Pulse Rate 85 81 Respiratory Rate 16 16 16 Blood Pressure 175/71 H 174/73 H Pulse Oximetry 97 97 97 05/05/18 10:00 05/05/18 10:02 05/05/18 11:00 Temperature Pulse Rate 74 74 76 Respiratory Rate 16 16 16 Blood Pressure 161/70 H Pulse Oximetry 96 96 97 05/05/18 11:02 05/05/18 12:00 05/05/18 12:02 Temperature 100.4 F H Pulse Rate 75 76 76 Respiratory Rate 16 16 16 Blood Pressure 164/72 H 169/71 H Pulse Oximetry 97 97 97 05/05/18 13:00 05/05/18 13:02 05/05/18 13:20 Temperature Pulse Rate 78 78 Respiratory Rate 16 16 16 Blood Pressure 173/72 H Pulse Oximetry 97 97 97 05/05/18 13:43 05/05/18 13:45 05/05/18 13:58 Temperature Pulse Rate 81 81 84 Respiratory Rate 16 16 16 Blood Pressure 181/74 H 187/78 H 191/79 H Pulse Oximetry 98 98 97 05/05/18 14:00 05/05/18 14:13 05/05/18 14:28 Temperature Pulse Rate 84 84 84 Respiratory Rate 16 17 16 Blood Pressure 197/82 H 199/81 H Pulse Oximetry 97 97 97 05/05/18 14:43 05/05/18 14:58 05/05/18 15:00 Temperature Pulse Rate 83 82 82 Respiratory Rate 16 16 16 Blood Pressure 194/79 H 185/75 H Pulse Oximetry 97 95 94 L 05/05/18 15:13 05/05/18 15:28 Temperature Pulse Rate 78 79 Respiratory Rate 16 16 Blood Pressure 188/72 H 187/77 H Pulse Oximetry 94 L 93 L Intake & Output 05/04/18 05/05/18 05/05/18 18:59 06:59 18:59 Intake Total 542 / 542 675 / 675 Balance 542 / 542 675 / 675 Weight 122.47 kg Intake: IV 100 / 100 222 / 222 Cerebyx Inj 100 MGPE In NS Inj 52 / 52 50 ML @ 208 mls/hr IV.SIG Q8HR NURY Rx#:[id number] Cerebyx Inj 1,000 MGPE In NS 70 / 70 Inj 50 ML @ 280 mls/hr IV.SIG ONCE ONE Rx#:[id number] Keppra 1000 mg/100 mL Premix 100 / 100 100 / 100 100 ML @ 400 mls/hr IV.SIG Q8HR NURY Rx#:[id number] Oral 120 / 120 Tube Feeding 292 / 292 333 / 333 Tube Irrigant 150 / 150 Other: # Bowel Movements 0 0 Physical Exam: CONSTITUTIONAL/GENERAL: This is an adequately nourished patient, in no apparent distress. TUBES/LINES/DRAINS: ETT, OG, right AV fistula, right IJ SKIN: Tattoos noted. Ecchymoses on upper extremities. No wounds seen anteriorly. Skin temperature appropriate. Not diaphoretic. EYES: eyes closed. ENT: Unable to assess hearing. Nose without bleeding or purulent drainage. CARDIOVASCULAR: Regular rate and rhythm without murmur. RESPIRATORY/CHEST: On mech vent. scattered coarse breath sounds. GASTROINTESTINAL: Abdomen soft, nondistended. Bowel sounds present. GENITOURINARY: Without palpable bladder distension. Bentley catheter in place, no UOP noted. MUSCULOSKELETAL: Right BKA well healed. LLE edema. No mottling or clubbing. NEUROLOGICAL: Unresponsive. + cough. posturing noted to painful stimuli LUE. PSYCHIATRIC: Unresponsive. Diagnostic Tests Laboratory: Laboratory Results - last 72 hr 05/02/18 05/02/18 05/02/18 18:08 18:08 18:08 WBC 7.6 RBC 3.89 L Hgb 10.8 L POC Hgb (Calc) 12.9 Hct 36.7 POC Hct 38.0 MCV 94.4 MCH 27.8 MCHC 29.5 L RDW 19.2 H Plt Count 331 MPV 8.6 Neut % (Auto) 87.2 H Lymph % (Auto) 10.5 Beckham % (Auto) 1.8 Eos % (Auto) 0.1 Baso % (Auto) 0.4 Neut # (Auto) 6.6 Lymph # (Auto) 0.8 L Beckham # (Auto) 0.1 Eos # (Auto) 0.0 Baso # (Auto) 0.0 WBC Differential . Differential Comment Auto diff final PT 13.0 H INR 1.3 APTT 25.7 Puncture Site Patient Temperature O2 Saturation ABG pH ABG pCO2 ABG pO2 ABG HCO3 ABG O2 Content ABG Base Excess ABG Methemoglobin Norberto Test Hemoglobin Carboxyhemoglobin O2 Delivery Device Liter Flow Inspired O2 Critical Value POC Sodium 121 L* Sodium 120 L* POC Potassium 8.6 H* Potassium 8.6 H* POC Chloride Not Reportable Chloride 86 L Carbon Dioxide 13.7 L Anion Gap 20 H POC BUN 102 H BUN 93 H Creatinine 11.06 H* POC Creatinine 10.7 H* Estimated GFR 3 L POC Glucose 695 H* Random Glucose 705 H* Lactic Acid Calcium 8.5 Phosphorus Magnesium Total Bilirubin AST ALT Alkaline Phosphatase Total Creatine Kinase 65 Troponin I Less than 0.02 L Total Protein Albumin Nasal Screen MRSA (PCR) Phenytoin Serum Alcohol Less than 3 Hepatitis A IgM Ab Hep Bs Antigen Hep B Core IgM Ab Hep C IgG Ab Blood Type Antibody Screen 05/02/18 05/02/18 05/02/18 18:08 18:08 18:08 WBC RBC Hgb POC Hgb (Calc) Hct POC Hct MCV MCH MCHC RDW Plt Count MPV Neut % (Auto) Lymph % (Auto) Beckham % (Auto) Eos % (Auto) Baso % (Auto) Neut # (Auto) Lymph # (Auto) Beckham # (Auto) Eos # (Auto) Baso # (Auto) WBC Differential Differential Comment PT INR APTT Puncture Site Left brachial Patient Temperature 98.6 O2 Saturation 93 ABG pH 7.22 L* ABG pCO2 44 H ABG pO2 360 H ABG HCO3 17 L ABG O2 Content 15.5 ABG Base Excess -8.9 L ABG Methemoglobin 0.6 Norberto Test Present Hemoglobin 11.2 L Carboxyhemoglobin 6.6 H* O2 Delivery Device Ambu bag Liter Flow 15.00 Inspired O2 100 Critical Value Yes POC Sodium Sodium POC Potassium Potassium POC Chloride Chloride Carbon Dioxide Anion Gap POC BUN BUN Creatinine POC Creatinine Estimated GFR POC Glucose Random Glucose Lactic Acid 5.9 H* Calcium Phosphorus Magnesium Total Bilirubin AST ALT Alkaline Phosphatase Total Creatine Kinase Cancelled Troponin I Total Protein Albumin Nasal Screen MRSA (PCR) Phenytoin Serum Alcohol Hepatitis A IgM Ab Hep Bs Antigen Hep B Core IgM Ab Hep C IgG Ab Blood Type Antibody Screen 05/02/18 05/02/18 05/02/18 18:08 18:31 20:40 WBC RBC Hgb POC Hgb (Calc) Hct POC Hct MCV MCH MCHC RDW Plt Count MPV Neut % (Auto) Lymph % (Auto) Beckham % (Auto) Eos % (Auto) Baso % (Auto) Neut # (Auto) Lymph # (Auto) Beckham # (Auto) Eos # (Auto) Baso # (Auto) WBC Differential Differential Comment PT INR APTT Puncture Site Patient Temperature O2 Saturation ABG pH ABG pCO2 ABG pO2 ABG HCO3 ABG O2 Content ABG Base Excess ABG Methemoglobin Norberto Test Hemoglobin Carboxyhemoglobin O2 Delivery Device Liter Flow Inspired O2 Critical Value POC Sodium Sodium POC Potassium Potassium POC Chloride Chloride Carbon Dioxide Anion Gap POC BUN BUN Creatinine POC Creatinine Estimated GFR POC Glucose Random Glucose Lactic Acid Calcium Phosphorus Magnesium 2.5 Total Bilirubin AST ALT Alkaline Phosphatase Total Creatine Kinase Troponin I Total Protein Albumin Nasal Screen MRSA (PCR) Phenytoin Serum Alcohol Hepatitis A IgM Ab Nonreactive Hep Bs Antigen Nonreactive Hep B Core IgM Ab Nonreactive Hep C IgG Ab Reactive H Blood Type B Positive Antibody Screen Negative 05/02/18 05/02/18 05/03/18 21:00 23:02 01:16 WBC RBC Hgb POC Hgb (Calc) Hct POC Hct MCV MCH MCHC RDW Plt Count MPV Neut % (Auto) Lymph % (Auto) Beckham % (Auto) Eos % (Auto) Baso % (Auto) Neut # (Auto) Lymph # (Auto) Beckham # (Auto) Eos # (Auto) Baso # (Auto) WBC Differential Differential Comment PT INR APTT Puncture Site Patient Temperature O2 Saturation ABG pH ABG pCO2 ABG pO2 ABG HCO3 ABG O2 Content ABG Base Excess ABG Methemoglobin Norberto Test Hemoglobin Carboxyhemoglobin O2 Delivery Device Liter Flow Inspired O2 Critical Value POC Sodium Sodium POC Potassium Potassium POC Chloride Chloride Carbon Dioxide Anion Gap POC BUN BUN Creatinine POC Creatinine Estimated GFR POC Glucose Random Glucose Lactic Acid 0.9 Calcium Phosphorus Magnesium Total Bilirubin AST ALT Alkaline Phosphatase Total Creatine Kinase Troponin I 0.22 H D Total Protein Albumin Nasal Screen MRSA (PCR) Mrsa detected Phenytoin Serum Alcohol Hepatitis A IgM Ab Hep Bs Antigen Hep B Core IgM Ab Hep C IgG Ab Blood Type Antibody Screen 05/03/18 05/03/18 05/03/18 01:52 01:54 04:12 WBC 14.5 H D RBC 3.68 L Hgb 10.0 L POC Hgb (Calc) Hct 31.6 L POC Hct MCV 85.8 D MCH 27.3 MCHC 31.8 L RDW 18.6 H Plt Count 292 MPV 7.9 Neut % (Auto) 90.4 H Lymph % (Auto) 3.2 L Beckham % (Auto) 6.3 Eos % (Auto) 0.0 Baso % (Auto) 0.1 Neut # (Auto) 13.1 H Lymph # (Auto) 0.5 L Beckham # (Auto) 0.9 Eos # (Auto) 0.0 Baso # (Auto) 0.0 WBC Differential . Differential Comment Auto diff final PT INR APTT Puncture Site Patient Temperature O2 Saturation ABG pH ABG pCO2 ABG pO2 ABG HCO3 ABG O2 Content ABG Base Excess ABG Methemoglobin Norberto Test Hemoglobin Carboxyhemoglobin O2 Delivery Device Liter Flow Inspired O2 Critical Value POC Sodium Sodium POC Potassium Potassium POC Chloride Chloride Carbon Dioxide Anion Gap POC BUN BUN Creatinine POC Creatinine Estimated GFR POC Glucose 436 H 416 H Random Glucose Lactic Acid Calcium Phosphorus Magnesium Total Bilirubin AST ALT Alkaline Phosphatase Total Creatine Kinase Troponin I Total Protein Albumin Nasal Screen MRSA (PCR) Phenytoin Serum Alcohol Hepatitis A IgM Ab Hep Bs Antigen Hep B Core IgM Ab Hep C IgG Ab Blood Type Antibody Screen 05/03/18 05/03/18 05/03/18 04:12 04:12 04:12 WBC RBC Hgb POC Hgb (Calc) Hct POC Hct MCV MCH MCHC RDW Plt Count MPV Neut % (Auto) Lymph % (Auto) Beckham % (Auto) Eos % (Auto) Baso % (Auto) Neut # (Auto) Lymph # (Auto) Beckham # (Auto) Eos # (Auto) Baso # (Auto) WBC Differential Differential Comment PT INR APTT 25.8 Puncture Site Patient Temperature O2 Saturation ABG pH ABG pCO2 ABG pO2 ABG HCO3 ABG O2 Content ABG Base Excess ABG Methemoglobin Norberto Test Hemoglobin Carboxyhemoglobin O2 Delivery Device Liter Flow Inspired O2 Critical Value POC Sodium Sodium 136 D POC Potassium Potassium 5.1 D POC Chloride Chloride 95 L D Carbon Dioxide 20.1 L Anion Gap 21 H POC BUN BUN 63 H Creatinine 8.33 H POC Creatinine Estimated GFR 4 L POC Glucose 436 H Random Glucose 412 H D Lactic Acid Calcium 9.0 Phosphorus 8.9 H Magnesium 2.1 Total Bilirubin 0.6 AST 17 ALT 14 Alkaline Phosphatase 163 H Total Creatine Kinase Troponin I 0.24 H Total Protein 8.3 H Albumin 3.1 L Nasal Screen MRSA (PCR) Phenytoin Serum Alcohol Hepatitis A IgM Ab Hep Bs Antigen Hep B Core IgM Ab Hep C IgG Ab Blood Type Antibody Screen 05/03/18 05/03/18 05/03/18 05:02 06:10 07:15 WBC RBC Hgb POC Hgb (Calc) Hct POC Hct MCV MCH MCHC RDW Plt Count MPV Neut % (Auto) Lymph % (Auto) Beckham % (Auto) Eos % (Auto) Baso % (Auto) Neut # (Auto) Lymph # (Auto) Beckham # (Auto) Eos # (Auto) Baso # (Auto) WBC Differential Differential Comment PT INR APTT Puncture Site Patient Temperature O2 Saturation ABG pH ABG pCO2 ABG pO2 ABG HCO3 ABG O2 Content ABG Base Excess ABG Methemoglobin Norberto Test Hemoglobin Carboxyhemoglobin O2 Delivery Device Liter Flow Inspired O2 Critical Value POC Sodium Sodium POC Potassium Potassium POC Chloride Chloride Carbon Dioxide Anion Gap POC BUN BUN Creatinine POC Creatinine Estimated GFR POC Glucose 358 H 315 H 227 H Random Glucose Lactic Acid Calcium Phosphorus Magnesium Total Bilirubin AST ALT Alkaline Phosphatase Total Creatine Kinase Troponin I Total Protein Albumin Nasal Screen MRSA (PCR) Phenytoin Serum Alcohol Hepatitis A IgM Ab Hep Bs Antigen Hep B Core IgM Ab Hep C IgG Ab Blood Type Antibody Screen 05/03/18 05/03/18 05/03/18 08:08 09:14 10:11 WBC RBC Hgb POC Hgb (Calc) Hct POC Hct MCV MCH MCHC RDW Plt Count MPV Neut % (Auto) Lymph % (Auto) Beckham % (Auto) Eos % (Auto) Baso % (Auto) Neut # (Auto) Lymph # (Auto) Beckham # (Auto) Eos # (Auto) Baso # (Auto) WBC Differential Differential Comment PT INR APTT Puncture Site Patient Temperature O2 Saturation ABG pH ABG pCO2 ABG pO2 ABG HCO3 ABG O2 Content ABG Base Excess ABG Methemoglobin Norberto Test Hemoglobin Carboxyhemoglobin O2 Delivery Device Liter Flow Inspired O2 Critical Value POC Sodium Sodium POC Potassium Potassium POC Chloride Chloride Carbon Dioxide Anion Gap POC BUN BUN Creatinine POC Creatinine Estimated GFR POC Glucose 180 H 135 H 142 H Random Glucose Lactic Acid Calcium Phosphorus Magnesium Total Bilirubin AST ALT Alkaline Phosphatase Total Creatine Kinase Troponin I Total Protein Albumin Nasal Screen MRSA (PCR) Phenytoin Serum Alcohol Hepatitis A IgM Ab Hep Bs Antigen Hep B Core IgM Ab Hep C IgG Ab Blood Type Antibody Screen 05/03/18 05/03/18 05/03/18 11:01 12:00 13:08 WBC RBC Hgb POC Hgb (Calc) Hct POC Hct MCV MCH MCHC RDW Plt Count MPV Neut % (Auto) Lymph % (Auto) Beckham % (Auto) Eos % (Auto) Baso % (Auto) Neut # (Auto) Lymph # (Auto) Beckham # (Auto) Eos # (Auto) Baso # (Auto) WBC Differential Differential Comment PT INR APTT Puncture Site Patient Temperature O2 Saturation ABG pH ABG pCO2 ABG pO2 ABG HCO3 ABG O2 Content ABG Base Excess ABG Methemoglobin Norberto Test Hemoglobin Carboxyhemoglobin O2 Delivery Device Liter Flow Inspired O2 Critical Value POC Sodium Sodium POC Potassium Potassium POC Chloride Chloride Carbon Dioxide Anion Gap POC BUN BUN Creatinine POC Creatinine Estimated GFR POC Glucose 143 H 148 H 151 H Random Glucose Lactic Acid Calcium Phosphorus Magnesium Total Bilirubin AST ALT Alkaline Phosphatase Total Creatine Kinase Troponin I Total Protein Albumin Nasal Screen MRSA (PCR) Phenytoin Serum Alcohol Hepatitis A IgM Ab Hep Bs Antigen Hep B Core IgM Ab Hep C IgG Ab Blood Type Antibody Screen 05/03/18 05/03/18 05/03/18 14:12 15:12 16:11 WBC RBC Hgb POC Hgb (Calc) Hct POC Hct MCV MCH MCHC RDW Plt Count MPV Neut % (Auto) Lymph % (Auto) Beckham % (Auto) Eos % (Auto) Baso % (Auto) Neut # (Auto) Lymph # (Auto) Beckham # (Auto) Eos # (Auto) Baso # (Auto) WBC Differential Differential Comment PT INR APTT Puncture Site Patient Temperature O2 Saturation ABG pH ABG pCO2 ABG pO2 ABG HCO3 ABG O2 Content ABG Base Excess ABG Methemoglobin Norberto Test Hemoglobin Carboxyhemoglobin O2 Delivery Device Liter Flow Inspired O2 Critical Value POC Sodium Sodium POC Potassium Potassium POC Chloride Chloride Carbon Dioxide Anion Gap POC BUN BUN Creatinine POC Creatinine Estimated GFR POC Glucose 134 H 115 H 132 H Random Glucose Lactic Acid Calcium Phosphorus Magnesium Total Bilirubin AST ALT Alkaline Phosphatase Total Creatine Kinase Troponin I Total Protein Albumin Nasal Screen MRSA (PCR) Phenytoin Serum Alcohol Hepatitis A IgM Ab Hep Bs Antigen Hep B Core IgM Ab Hep C IgG Ab Blood Type Antibody Screen 05/03/18 05/03/18 05/03/18 16:56 18:17 19:02 WBC RBC Hgb POC Hgb (Calc) Hct POC Hct MCV MCH MCHC RDW Plt Count MPV Neut % (Auto) Lymph % (Auto) Beckham % (Auto) Eos % (Auto) Baso % (Auto) Neut # (Auto) Lymph # (Auto) Beckham # (Auto) Eos # (Auto) Baso # (Auto) WBC Differential Differential Comment PT INR APTT Puncture Site Patient Temperature O2 Saturation ABG pH ABG pCO2 ABG pO2 ABG HCO3 ABG O2 Content ABG Base Excess ABG Methemoglobin Norberto Test Hemoglobin Carboxyhemoglobin O2 Delivery Device Liter Flow Inspired O2 Critical Value POC Sodium Sodium POC Potassium Potassium POC Chloride Chloride Carbon Dioxide Anion Gap POC BUN BUN Creatinine POC Creatinine Estimated GFR POC Glucose 127 H 144 H 160 H Random Glucose Lactic Acid Calcium Phosphorus Magnesium Total Bilirubin AST ALT Alkaline Phosphatase Total Creatine Kinase Troponin I Total Protein Albumin Nasal Screen MRSA (PCR) Phenytoin Serum Alcohol Hepatitis A IgM Ab Hep Bs Antigen Hep B Core IgM Ab Hep C IgG Ab Blood Type Antibody Screen 05/03/18 05/03/18 05/03/18 20:06 21:06 22:07 WBC RBC Hgb POC Hgb (Calc) Hct POC Hct MCV MCH MCHC RDW Plt Count MPV Neut % (Auto) Lymph % (Auto) Beckham % (Auto) Eos % (Auto) Baso % (Auto) Neut # (Auto) Lymph # (Auto) Beckham # (Auto) Eos # (Auto) Baso # (Auto) WBC Differential Differential Comment PT INR APTT Puncture Site Patient Temperature O2 Saturation ABG pH ABG pCO2 ABG pO2 ABG HCO3 ABG O2 Content ABG Base Excess ABG Methemoglobin Norberto Test Hemoglobin Carboxyhemoglobin O2 Delivery Device Liter Flow Inspired O2 Critical Value POC Sodium Sodium POC Potassium Potassium POC Chloride Chloride Carbon Dioxide Anion Gap POC BUN BUN Creatinine POC Creatinine Estimated GFR POC Glucose 157 H 170 H 160 H Random Glucose Lactic Acid Calcium Phosphorus Magnesium Total Bilirubin AST ALT Alkaline Phosphatase Total Creatine Kinase Troponin I Total Protein Albumin Nasal Screen MRSA (PCR) Phenytoin Serum Alcohol Hepatitis A IgM Ab Hep Bs Antigen Hep B Core IgM Ab Hep C IgG Ab Blood Type Antibody Screen 05/03/18 05/04/18 05/04/18 23:08 00:13 01:11 WBC RBC Hgb POC Hgb (Calc) Hct POC Hct MCV MCH MCHC RDW Plt Count MPV Neut % (Auto) Lymph % (Auto) Beckham % (Auto) Eos % (Auto) Baso % (Auto) Neut # (Auto) Lymph # (Auto) Beckham # (Auto) Eos # (Auto) Baso # (Auto) WBC Differential Differential Comment PT INR APTT Puncture Site Patient Temperature O2 Saturation ABG pH ABG pCO2 ABG pO2 ABG HCO3 ABG O2 Content ABG Base Excess ABG Methemoglobin Norberto Test Hemoglobin Carboxyhemoglobin O2 Delivery Device Liter Flow Inspired O2 Critical Value POC Sodium Sodium POC Potassium Potassium POC Chloride Chloride Carbon Dioxide Anion Gap POC BUN BUN Creatinine POC Creatinine Estimated GFR POC Glucose 154 H 159 H 146 H Random Glucose Lactic Acid Calcium Phosphorus Magnesium Total Bilirubin AST ALT Alkaline Phosphatase Total Creatine Kinase Troponin I Total Protein Albumin Nasal Screen MRSA (PCR) Phenytoin Serum Alcohol Hepatitis A IgM Ab Hep Bs Antigen Hep B Core IgM Ab Hep C IgG Ab Blood Type Antibody Screen 05/04/18 05/04/18 05/04/18 02:13 03:05 04:06 WBC RBC Hgb POC Hgb (Calc) Hct POC Hct MCV MCH MCHC RDW Plt Count MPV Neut % (Auto) Lymph % (Auto) Beckham % (Auto) Eos % (Auto) Baso % (Auto) Neut # (Auto) Lymph # (Auto) Beckham # (Auto) Eos # (Auto) Baso # (Auto) WBC Differential Differential Comment PT INR APTT Puncture Site Patient Temperature O2 Saturation ABG pH ABG pCO2 ABG pO2 ABG HCO3 ABG O2 Content ABG Base Excess ABG Methemoglobin Norberto Test Hemoglobin Carboxyhemoglobin O2 Delivery Device Liter Flow Inspired O2 Critical Value POC Sodium Sodium POC Potassium Potassium POC Chloride Chloride Carbon Dioxide Anion Gap POC BUN BUN Creatinine POC Creatinine Estimated GFR POC Glucose 168 H 158 H 169 H Random Glucose Lactic Acid Calcium Phosphorus Magnesium Total Bilirubin AST ALT Alkaline Phosphatase Total Creatine Kinase Troponin I Total Protein Albumin Nasal Screen MRSA (PCR) Phenytoin Serum Alcohol Hepatitis A IgM Ab Hep Bs Antigen Hep B Core IgM Ab Hep C IgG Ab Blood Type Antibody Screen 05/04/18 05/04/18 05/04/18 04:13 05:01 06:10 WBC RBC Hgb POC Hgb (Calc) Hct POC Hct MCV MCH MCHC RDW Plt Count MPV Neut % (Auto) Lymph % (Auto) Beckham % (Auto) Eos % (Auto) Baso % (Auto) Neut # (Auto) Lymph # (Auto) Beckham # (Auto) Eos # (Auto) Baso # (Auto) WBC Differential Differential Comment PT INR APTT Puncture Site Patient Temperature O2 Saturation ABG pH ABG pCO2 ABG pO2 ABG HCO3 ABG O2 Content ABG Base Excess ABG Methemoglobin Norberto Test Hemoglobin Carboxyhemoglobin O2 Delivery Device Liter Flow Inspired O2 Critical Value POC Sodium Sodium 139 POC Potassium Potassium 4.3 D POC Chloride Chloride 100 Carbon Dioxide 26.6 Anion Gap 12 POC BUN BUN 42 H Creatinine 6.78 H POC Creatinine Estimated GFR 5 L POC Glucose 162 H 200 H Random Glucose 169 H D Lactic Acid Calcium 9.1 Phosphorus 4.3 D Magnesium Total Bilirubin AST ALT Alkaline Phosphatase Total Creatine Kinase Troponin I Total Protein Albumin 2.9 L Nasal Screen MRSA (PCR) Phenytoin Serum Alcohol Hepatitis A IgM Ab Hep Bs Antigen Hep B Core IgM Ab Hep C IgG Ab Blood Type Antibody Screen 05/04/18 05/04/18 05/04/18 08:11 09:01 11:01 WBC RBC Hgb POC Hgb (Calc) Hct POC Hct MCV MCH MCHC RDW Plt Count MPV Neut % (Auto) Lymph % (Auto) Beckham % (Auto) Eos % (Auto) Baso % (Auto) Neut # (Auto) Lymph # (Auto) Beckham # (Auto) Eos # (Auto) Baso # (Auto) WBC Differential Differential Comment PT INR APTT Puncture Site Patient Temperature O2 Saturation ABG pH ABG pCO2 ABG pO2 ABG HCO3 ABG O2 Content ABG Base Excess ABG Methemoglobin Norberto Test Hemoglobin Carboxyhemoglobin O2 Delivery Device Liter Flow Inspired O2 Critical Value POC Sodium Sodium POC Potassium Potassium POC Chloride Chloride Carbon Dioxide Anion Gap POC BUN BUN Creatinine POC Creatinine Estimated GFR POC Glucose 214 H 201 H 185 H Random Glucose Lactic Acid Calcium Phosphorus Magnesium Total Bilirubin AST ALT Alkaline Phosphatase Total Creatine Kinase Troponin I Total Protein Albumin Nasal Screen MRSA (PCR) Phenytoin Serum Alcohol Hepatitis A IgM Ab Hep Bs Antigen Hep B Core IgM Ab Hep C IgG Ab Blood Type Antibody Screen 05/04/18 05/04/18 05/04/18 14:14 16:48 18:05 WBC RBC Hgb POC Hgb (Calc) Hct POC Hct MCV MCH MCHC RDW Plt Count MPV Neut % (Auto) Lymph % (Auto) Beckham % (Auto) Eos % (Auto) Baso % (Auto) Neut # (Auto) Lymph # (Auto) Beckham # (Auto) Eos # (Auto) Baso # (Auto) WBC Differential Differential Comment PT INR APTT Puncture Site Patient Temperature O2 Saturation ABG pH ABG pCO2 ABG pO2 ABG HCO3 ABG O2 Content ABG Base Excess ABG Methemoglobin Norberto Test Hemoglobin Carboxyhemoglobin O2 Delivery Device Liter Flow Inspired O2 Critical Value POC Sodium Sodium POC Potassium Potassium POC Chloride Chloride Carbon Dioxide Anion Gap POC BUN BUN Creatinine POC Creatinine Estimated GFR POC Glucose 162 H 239 H 235 H Random Glucose Lactic Acid Calcium Phosphorus Magnesium Total Bilirubin AST ALT Alkaline Phosphatase Total Creatine Kinase Troponin I Total Protein Albumin Nasal Screen MRSA (PCR) Phenytoin Serum Alcohol Hepatitis A IgM Ab Hep Bs Antigen Hep B Core IgM Ab Hep C IgG Ab Blood Type Antibody Screen 05/04/18 05/04/18 05/04/18 18:57 19:58 20:59 WBC RBC Hgb POC Hgb (Calc) Hct POC Hct MCV MCH MCHC RDW Plt Count MPV Neut % (Auto) Lymph % (Auto) Beckham % (Auto) Eos % (Auto) Baso % (Auto) Neut # (Auto) Lymph # (Auto) Beckham # (Auto) Eos # (Auto) Baso # (Auto) WBC Differential Differential Comment PT INR APTT Puncture Site Patient Temperature O2 Saturation ABG pH ABG pCO2 ABG pO2 ABG HCO3 ABG O2 Content ABG Base Excess ABG Methemoglobin Norberto Test Hemoglobin Carboxyhemoglobin O2 Delivery Device Liter Flow Inspired O2 Critical Value POC Sodium Sodium POC Potassium Potassium POC Chloride Chloride Carbon Dioxide Anion Gap POC BUN BUN Creatinine POC Creatinine Estimated GFR POC Glucose 232 H 230 H 200 H Random Glucose Lactic Acid Calcium Phosphorus Magnesium Total Bilirubin AST ALT Alkaline Phosphatase Total Creatine Kinase Troponin I Total Protein Albumin Nasal Screen MRSA (PCR) Phenytoin Serum Alcohol Hepatitis A IgM Ab Hep Bs Antigen Hep B Core IgM Ab Hep C IgG Ab Blood Type Antibody Screen 05/04/18 05/04/18 05/05/18 22:02 23:11 00:01 WBC RBC Hgb POC Hgb (Calc) Hct POC Hct MCV MCH MCHC RDW Plt Count MPV Neut % (Auto) Lymph % (Auto) Beckham % (Auto) Eos % (Auto) Baso % (Auto) Neut # (Auto) Lymph # (Auto) Beckham # (Auto) Eos # (Auto) Baso # (Auto) WBC Differential Differential Comment PT INR APTT Puncture Site Patient Temperature O2 Saturation ABG pH ABG pCO2 ABG pO2 ABG HCO3 ABG O2 Content ABG Base Excess ABG Methemoglobin Norberto Test Hemoglobin Carboxyhemoglobin O2 Delivery Device Liter Flow Inspired O2 Critical Value POC Sodium Sodium POC Potassium Potassium POC Chloride Chloride Carbon Dioxide Anion Gap POC BUN BUN Creatinine POC Creatinine Estimated GFR POC Glucose 187 H 181 H 178 H Random Glucose Lactic Acid Calcium Phosphorus Magnesium Total Bilirubin AST ALT Alkaline Phosphatase Total Creatine Kinase Troponin I Total Protein Albumin Nasal Screen MRSA (PCR) Phenytoin Serum Alcohol Hepatitis A IgM Ab Hep Bs Antigen Hep B Core IgM Ab Hep C IgG Ab Blood Type Antibody Screen 05/05/18 05/05/18 05/05/18 01:04 02:40 03:06 WBC RBC Hgb POC Hgb (Calc) Hct POC Hct MCV MCH MCHC RDW Plt Count MPV Neut % (Auto) Lymph % (Auto) Beckham % (Auto) Eos % (Auto) Baso % (Auto) Neut # (Auto) Lymph # (Auto) Beckham # (Auto) Eos # (Auto) Baso # (Auto) WBC Differential Differential Comment PT INR APTT Puncture Site Patient Temperature O2 Saturation ABG pH ABG pCO2 ABG pO2 ABG HCO3 ABG O2 Content ABG Base Excess ABG Methemoglobin Norberto Test Hemoglobin Carboxyhemoglobin O2 Delivery Device Liter Flow Inspired O2 Critical Value POC Sodium Sodium POC Potassium Potassium POC Chloride Chloride Carbon Dioxide Anion Gap POC BUN BUN Creatinine POC Creatinine Estimated GFR POC Glucose 179 H 201 H 209 H Random Glucose Lactic Acid Calcium Phosphorus Magnesium Total Bilirubin AST ALT Alkaline Phosphatase Total Creatine Kinase Troponin I Total Protein Albumin Nasal Screen MRSA (PCR) Phenytoin Serum Alcohol Hepatitis A IgM Ab Hep Bs Antigen Hep B Core IgM Ab Hep C IgG Ab Blood Type Antibody Screen 05/05/18 05/05/18 05/05/18 04:13 04:13 04:20 WBC 12.6 H RBC 3.93 L Hgb 10.9 L POC Hgb (Calc) Hct 33.8 L POC Hct MCV 85.9 MCH 27.8 MCHC 32.3 RDW 18.8 H Plt Count 260 MPV 8.4 Neut % (Auto) 85.4 H Lymph % (Auto) 5.1 L Beckham % (Auto) 9.1 H Eos % (Auto) 0.0 Baso % (Auto) 0.4 Neut # (Auto) 10.8 H Lymph # (Auto) 0.6 L Beckham # (Auto) 1.1 H Eos # (Auto) 0.0 Baso # (Auto) 0.0 WBC Differential . Differential Comment Auto diff final PT INR APTT Puncture Site Patient Temperature O2 Saturation ABG pH ABG pCO2 ABG pO2 ABG HCO3 ABG O2 Content ABG Base Excess ABG Methemoglobin Norberto Test Hemoglobin Carboxyhemoglobin O2 Delivery Device Liter Flow Inspired O2 Critical Value POC Sodium Sodium 138 POC Potassium Potassium 4.7 POC Chloride Chloride 98 Carbon Dioxide 26.9 Anion Gap 13 POC BUN BUN 62 H Creatinine 8.20 H POC Creatinine Estimated GFR 5 L POC Glucose 201 H Random Glucose 203 H Lactic Acid Calcium 9.0 Phosphorus 6.2 H D Magnesium Total Bilirubin AST ALT Alkaline Phosphatase Total Creatine Kinase Troponin I Total Protein Albumin 2.9 L Nasal Screen MRSA (PCR) Phenytoin 7.9 L Serum Alcohol Hepatitis A IgM Ab Hep Bs Antigen Hep B Core IgM Ab Hep C IgG Ab Blood Type Antibody Screen 05/05/18 05/05/18 05/05/18 05:10 05:59 06:55 WBC RBC Hgb POC Hgb (Calc) Hct POC Hct MCV MCH MCHC RDW Plt Count MPV Neut % (Auto) Lymph % (Auto) Beckham % (Auto) Eos % (Auto) Baso % (Auto) Neut # (Auto) Lymph # (Auto) Beckham # (Auto) Eos # (Auto) Baso # (Auto) WBC Differential Differential Comment PT INR APTT Puncture Site Patient Temperature O2 Saturation ABG pH ABG pCO2 ABG pO2 ABG HCO3 ABG O2 Content ABG Base Excess ABG Methemoglobin Norberto Test Hemoglobin Carboxyhemoglobin O2 Delivery Device Liter Flow Inspired O2 Critical Value POC Sodium Sodium POC Potassium Potassium POC Chloride Chloride Carbon Dioxide Anion Gap POC BUN BUN Creatinine POC Creatinine Estimated GFR POC Glucose 194 H 206 H 173 H Random Glucose Lactic Acid Calcium Phosphorus Magnesium Total Bilirubin AST ALT Alkaline Phosphatase Total Creatine Kinase Troponin I Total Protein Albumin Nasal Screen MRSA (PCR) Phenytoin Serum Alcohol Hepatitis A IgM Ab Hep Bs Antigen Hep B Core IgM Ab Hep C IgG Ab Blood Type Antibody Screen 05/05/18 05/05/18 05/05/18 08:02 09:45 10:58 WBC RBC Hgb POC Hgb (Calc) Hct POC Hct MCV MCH MCHC RDW Plt Count MPV Neut % (Auto) Lymph % (Auto) Beckham % (Auto) Eos % (Auto) Baso % (Auto) Neut # (Auto) Lymph # (Auto) Beckham # (Auto) Eos # (Auto) Baso # (Auto) WBC Differential Differential Comment PT INR APTT Puncture Site Patient Temperature O2 Saturation ABG pH ABG pCO2 ABG pO2 ABG HCO3 ABG O2 Content ABG Base Excess ABG Methemoglobin Norberto Test Hemoglobin Carboxyhemoglobin O2 Delivery Device Liter Flow Inspired O2 Critical Value POC Sodium Sodium POC Potassium Potassium POC Chloride Chloride Carbon Dioxide Anion Gap POC BUN BUN Creatinine POC Creatinine Estimated GFR POC Glucose 180 H 186 H 176 H Random Glucose Lactic Acid Calcium Phosphorus Magnesium Total Bilirubin AST ALT Alkaline Phosphatase Total Creatine Kinase Troponin I Total Protein Albumin Nasal Screen MRSA (PCR) Phenytoin Serum Alcohol Hepatitis A IgM Ab Hep Bs Antigen Hep B Core IgM Ab Hep C IgG Ab Blood Type Antibody Screen 05/05/18 05/05/18 12:10 14:01 WBC RBC Hgb POC Hgb (Calc) Hct POC Hct MCV MCH MCHC RDW Plt Count MPV Neut % (Auto) Lymph % (Auto) Beckham % (Auto) Eos % (Auto) Baso % (Auto) Neut # (Auto) Lymph # (Auto) Beckham # (Auto) Eos # (Auto) Baso # (Auto) WBC Differential Differential Comment PT INR APTT Puncture Site Patient Temperature O2 Saturation ABG pH ABG pCO2 ABG pO2 ABG HCO3 ABG O2 Content ABG Base Excess ABG Methemoglobin Norberto Test Hemoglobin Carboxyhemoglobin O2 Delivery Device Liter Flow Inspired O2 Critical Value POC Sodium Sodium POC Potassium Potassium POC Chloride Chloride Carbon Dioxide Anion Gap POC BUN BUN Creatinine POC Creatinine Estimated GFR POC Glucose 170 H 164 H Random Glucose Lactic Acid Calcium Phosphorus Magnesium Total Bilirubin AST ALT Alkaline Phosphatase Total Creatine Kinase Troponin I Total Protein Albumin Nasal Screen MRSA (PCR) Phenytoin Serum Alcohol Hepatitis A IgM Ab Hep Bs Antigen Hep B Core IgM Ab Hep C IgG Ab Blood Type Antibody Screen Result Diagrams: 05/05/18 04:13 05/05/18 04:13 Imaging: Chest X-Ray 05/02/18 18:16 CONCLUSION: 1. ET tube is 1.5 cm above the nicola and needs withdrawn 1 cm. 2. Diffuse airspace opacities throughout both lungs. Head MRI 05/04/18 00:00 CONCLUSION: 1. No acute intracranial abnormality. 2. Mild mucosal thickening is noted within the bilateral sphenoid sinuses, bilateral ethmoid air cells and right maxillary sinus. Procedures: * 05/02/18 - asystolic arrest, CPR, intubated. Assessment and Plan - Disease Oriented Problem List (1) Cardiac asystole (2) Respiratory failure (3) Hyperkalemia (4) Diabetes Comment: Diagnosed age 20. (5) Hemodialysis access site with arteriovenous graft (6) End stage renal disease on dialysis Comment: On HD for about the past 7 years, last HD on 04/28/18. Missed 05/01 due to diarrhea. Access placed 05/02 and later suffered cardiac arrest. - Symptom Scale (1) Dyspnea 0-10 Scale: Unable to quantify (2) Pain 0-10 Scale: Unable to quantify (3) Myoclonus 0-10 Scale: Unable to quantify Pertinent Non-Medical Issues: Psychosocial: Single. No children. Lives with her mother, Has 2 brothers. Spiritual:Unknown. Legal: Patient is not capacitated to make her own health care decisions at this time, unlikely she will regain capacity. Single. No children. Father . According to [place] statutes, health care proxy decision making falls to her mother, Mell Arreola. Ethical issues impacting care: No known concerns at this time. Important Contacts: * Mell Arreola, mother/HCP: [phone] * Geovanni Arreola, brother: [phone] Prognosis: Patient Alba Arreola is a 47 year old female is a chronically, critically ill patient post witnessed cardiac arrest now with likely anoxic brain injury. Overall prognosis appears poor for meaningful. Code Status: No Code DNR Plan: * Patient is not capacitated to make her own health care decisions at this time , unlikely she will regain capacity. Single. No children. Father . According to [place] statutes, health care proxy decision making falls to her mother, eMll Arreola who is supported by her son (patient's brother) Geovanni. * NO CODE * Goals: NO CODE, desires continued aggressive care short of NO CODE for now. Will follow up with family after EEG resulted. * SYMPTOMS: Pain: due to recent cardiac arrest, CPR, debility, tubes and lines. On Precedex. Unresponsive. Dyspnea: Currently on mech vent. Myoclonus: on Keppra. * Palliative care will continue to follow to assist with symptom management and further clarification of goals of medical treatment throughout hospital course.
--- NOTE | 2018-05-05 17:22 | MG ---
cc: Cresencio Javier MD EEG RECORD NUMBER: [id number] DESCRIPTION: Electrical myogenic artifact noted. Overall, flat-line type of appearance throughout the recording. No driving with photic stimulation. Single lead EKG showing sinus rhythm. INTERPRETATION: Significant electrical myogenic artifact with interpretable EPOCH of EEG showing a flat-line type of appearance. Clinical correlation. MD JACKELYN De Santiago/[place] , 05:02 PM , 05:05 PM
--- NOTE | 2018-05-05 17:49 | P.PNNP ---
Subjective Interval history: Patient is on the ventilator orally intubated minimal responsiveness Physical Exam Vital signs: Vital Signs 05/04/18 17:58 05/04/18 18:00 05/04/18 19:58 Temperature Pulse Rate 87 87 90 Respiratory Rate 16 16 16 Blood Pressure 152/60 H 166/74 H Pulse Oximetry 96 96 96 05/04/18 20:00 05/04/18 20:58 05/04/18 21:00 Temperature 99.1 F Pulse Rate 90 91 H 91 H Respiratory Rate 16 16 16 Blood Pressure 161/66 H Pulse Oximetry 97 97 97 05/04/18 21:20 05/04/18 21:59 05/04/18 22:00 Temperature Pulse Rate 79 79 Respiratory Rate 16 16 16 Blood Pressure 138/78 Pulse Oximetry 96 97 97 05/04/18 22:58 05/04/18 23:00 05/04/18 23:58 Temperature Pulse Rate 77 77 76 Respiratory Rate 16 16 16 Blood Pressure 159/72 H 158/70 H Pulse Oximetry 99 100 99 05/05/18 00:00 05/05/18 00:38 05/05/18 00:58 Temperature 100.9 F H Pulse Rate 76 75 Respiratory Rate 19 16 16 Blood Pressure 151/67 H Pulse Oximetry 99 99 99 05/05/18 01:00 05/05/18 01:58 05/05/18 02:00 Temperature Pulse Rate 75 79 79 Respiratory Rate 16 16 16 Blood Pressure 158/71 H Pulse Oximetry 98 98 98 05/05/18 02:58 05/05/18 03:00 05/05/18 03:58 Temperature Pulse Rate 80 80 79 Respiratory Rate 16 16 17 Blood Pressure 152/67 H 150/67 H Pulse Oximetry 98 98 97 05/05/18 04:00 05/05/18 04:14 05/05/18 04:58 Temperature 100.3 F H Pulse Rate 79 77 Respiratory Rate 17 16 16 Blood Pressure 147/63 H Pulse Oximetry 97 97 97 05/05/18 05:00 05/05/18 05:58 05/05/18 06:00 Temperature Pulse Rate 77 77 77 Respiratory Rate 16 17 16 Blood Pressure 151/67 H Pulse Oximetry 97 98 98 05/05/18 06:58 05/05/18 07:00 05/05/18 08:00 Temperature 100.4 F H Pulse Rate 81 81 85 Respiratory Rate 16 16 16 Blood Pressure 166/72 H 175/71 H Pulse Oximetry 97 97 97 05/05/18 09:01 05/05/18 09:08 05/05/18 10:00 Temperature Pulse Rate 81 74 Respiratory Rate 16 16 16 Blood Pressure 174/73 H Pulse Oximetry 97 97 96 05/05/18 10:02 05/05/18 11:00 05/05/18 11:02 Temperature Pulse Rate 74 76 75 Respiratory Rate 16 16 16 Blood Pressure 161/70 H 164/72 H Pulse Oximetry 96 97 97 05/05/18 12:00 05/05/18 12:02 05/05/18 13:00 Temperature 100.4 F H Pulse Rate 76 76 78 Respiratory Rate 16 16 16 Blood Pressure 169/71 H Pulse Oximetry 97 97 97 05/05/18 13:02 05/05/18 13:20 05/05/18 13:43 Temperature Pulse Rate 78 81 Respiratory Rate 16 16 16 Blood Pressure 173/72 H 181/74 H Pulse Oximetry 97 97 98 05/05/18 13:45 05/05/18 13:58 05/05/18 14:00 Temperature Pulse Rate 81 84 84 Respiratory Rate 16 16 16 Blood Pressure 187/78 H 191/79 H Pulse Oximetry 98 97 97 05/05/18 14:13 05/05/18 14:28 05/05/18 14:43 Temperature Pulse Rate 84 84 83 Respiratory Rate 17 16 16 Blood Pressure 197/82 H 199/81 H 194/79 H Pulse Oximetry 97 97 97 05/05/18 14:58 05/05/18 15:00 05/05/18 15:13 Temperature Pulse Rate 82 82 78 Respiratory Rate 16 16 16 Blood Pressure 185/75 H 188/72 H Pulse Oximetry 95 94 L 94 L 05/05/18 15:28 Temperature Pulse Rate 79 Respiratory Rate 16 Blood Pressure 187/77 H Pulse Oximetry 93 L Intake & Output 05/04/18 05/05/18 05/05/18 18:59 06:59 18:59 Intake Total 542 / 542 675 / 675 175 / 175 Balance 542 / 542 675 / 675 175 / 175 Weight 122.47 kg Intake: IV 100 / 100 222 / 222 175 / 175 NovoLIN R (IV Infusion) 100 75 / 75 UNIT In NS Inj 99 ML @ Per Protocol IV.CONT TITRATE PRN Rx #:[id number] Cerebyx Inj 100 MGPE In NS Inj 52 / 52 50 ML @ 208 mls/hr IV.SIG Q8HR NURY Rx#:[id number] Cerebyx Inj 1,000 MGPE In NS 70 / 70 Inj 50 ML @ 280 mls/hr IV.SIG ONCE ONE Rx#:[id number] Keppra 1000 mg/100 mL Premix 100 / 100 100 / 100 100 / 100 100 ML @ 400 mls/hr IV.SIG Q8HR NURY Rx#:[id number] Oral 120 / 120 Tube Feeding 292 / 292 333 / 333 Tube Irrigant 150 / 150 Other: # Bowel Movements 0 0 Narrative: GENERAL: Well-nourished, well-developed intubated patient. SKIN: Warm and dry. HEAD: Normocephalic. EYES: No scleral icterus. No injection or drainage. NECK: Supple, trachea midline. No JVD or lymphadenopathy. CARDIOVASCULAR: Regular rate and rhythm without murmurs, gallops, or rubs. RESPIRATORY: Breath sounds coarse breath sounds and bilateral rhonchi. GASTROINTESTINAL: Abdomen soft, non-tender, nondistended. EXTREMITIES: Right below-knee amputation left leg mild edema NEUROLOGICAL: Patient is unresponsive intubated - Urinary Catheter Management Indwelling Urethral Catheter Cath placed during this visit: no Assessment and Plan - Assessment (1) End stage renal disease on dialysis Code(s): N18.6 - End stage renal disease; Z99.2 - Dependence on renal dialysis Status: Acute (2) Diabetes Code(s): E11.9 - Type 2 diabetes mellitus without complications Status: Acute - Plan Patient had emergent hemodialysis yesterday Hemodialysis done ultrafiltration 5 L as tolerated And anoxic encephalopathy after cardiac arrest Hyperkalemia resolved Continue hemodialysis support on Tuesday, Tuesday and Tuesday patient remains intubated Patient critically ill Next hemodialysis will be Tuesday Prognosis is poor Family meeting withdrawal discussed patient has no meaningful recovery
[2018-05-05] MEDS: Insulin NovoLOG Aspart Correctional Sugar Inj SQ SCH (18:59)
--- NOTE | 2018-05-05 19:15 | P.PNNEU ---
Subjective Subjective Comments: has been nonresponsive today Active Medications: Active Medications Acetaminophen (Tylenol) 650 mg PO Q6H PRN PRN Reason: PAIN 1-10 AND/OR FEVER >101F Last Admin: 05/03/18 23:13 Dose: 650 mg Al Hydroxide/Mg Hydroxide (Milk Of Neville Steen) 30 ml PO Q12H PRN PRN Reason: Mild Constipation Albuterol (Duoneb Neb (Prn)) 1 ampul NEB Q2HR NEB PRN PRN Reason: WHEEZING Last Admin: 05/04/18 11:55 Dose: 1 ampul Amlodipine Besylate (Norvasc) 10 mg PO DAILY [facility] Last Admin: 05/05/18 08:08 Dose: 10 mg Bisacodyl (Dulcolax Supp) 10 mg RECTAL DAILY PRN PRN Reason: SEVERE CONSITIPATION Chlorhexidine Gluconate (Chlorhexidine 2% Cloth) 3 pack TOPICAL DAILY@0400 [facility] Stop: 05/08/18 03:59 Last Admin: 05/05/18 04:16 Dose: 3 pack Chlorhexidine Gluconate (Chlorhexidine 2% Cloth) 3 pack TOPICAL DAILY@0400 PRN PRN Reason: Extra cloth needed Stop: 05/08/18 03:59 Chlorhexidine Gluconate (Peridex 0.12% Oral Kit) 15 ml OROPHARYNG BID@0800, 2000 [facility] Last Admin: 05/05/18 08:09 Dose: 15 ml Dextrose (D50w Vial) 50 ml IV.PUSH UNSCH PRN PRN Reason: PER HYPOGLYCEMIA PROTOCOL Dextrose (D50w Vial) 50 ml IV.PUSH UNSCH PRN PRN Reason: PER HYPOGLYCEMIA PROTOCOL Diphenhydramine HCl (Benadryl) 25 mg PO UNSCH PRN PRN Reason: SEE LABEL COMMENTS Epoetin Xavier (Epogen Inj) 4,000 unit IV.PUSH UNSCH PRN PRN Reason: SEE LABEL COMMENTS Last Admin: 05/05/18 15:55 Dose: 4,000 unit Famotidine (Pepcid Pf Inj) 10 mg IV.PUSH Q12HR [facility] Last Admin: 05/05/18 08:08 Dose: 10 mg Gelatin (Gelfoam 12 Mm/7 Mm Topical) 1 foam TOPICAL PRN PRN PRN Reason: help stop bleeding from site Gentamicin Sulfate (Gentamicin Inj) 20 mg OTHER WITH DIALYSIS PRN PRN Reason: Dwell Gentamycin Lock Last Admin: 05/05/18 15:55 Dose: 20 mg Glucagon (Glucagon Inj) 1 mg OTHER PRN PRN PRN Reason: for Hypoglycemia Protocol Heparin Sodium (Porcine) (Heparin Inj) 8,000 units OTHER WITH DIALYSIS PRN PRN Reason: for machine prime Heparin Sodium (Porcine) (Heparin Inj) 1,000 units OTHER WITH DIALYSIS PRN PRN Reason: Dwell Heparin to Fill Catheter Last Admin: 05/05/18 15:55 Dose: 1,000 units Heparin Sodium (Porcine) (Heparin Inj) 5,000 units SQ Q8H NURY Last Admin: 05/05/18 12:26 Dose: 5,000 units Hydralazine HCl (Apresoline Inj) 20 mg IV.PUSH Q4H PRN PRN Reason: SBP > 160 Last Admin: 05/05/18 15:09 Dose: 20 mg Hydralazine HCl (Apresoline) 100 mg PO Q8H NURY Last Admin: 05/05/18 15:09 Dose: 100 mg Hydromorphone HCl (Dilaudid Pf Inj) 1 mg IV.PUSH Q4H PRN PRN Reason: PAIN SCALE 6 TO 10 Last Admin: 05/05/18 15:09 Dose: 1 mg Albumin Human (Flexbumin 25% Inj) 100 mls @ 60 mls/hr IV.SIG WITH DIALYSIS PRN PRN Reason: hypotension / volume replace Sodium Chloride (Ns Inj) 1,000 mls @ 0 mls/hr OTHER .Q0M PRN PRN Reason: for prime and rinse back Sodium Chloride (Ns Inj) 1,000 mls @ 200 mls/hr OTHER .Q5H PRN PRN Reason: for dialyzer flush PRN Sodium Chloride (Ns Inj) 1,000 mls @ 0 mls/hr IV.CONT .Q0M PRN PRN Reason: hypotension / volume replace Levetiracetam (Keppra 1000 Mg/100 Ml Premix) 100 mls @ 400 mls/hr IV.SIG Q8HR NURY Last Infusion: 05/05/18 16:28 Dose: Infused Fosphenytoin Sodium 100 mgpe/ (Sodium Chloride) 52 mls @ 208 mls/hr IV.SIG Q8HR NURY Last Infusion: 05/05/18 18:40 Dose: Infused Insulin Aspart (Novolog Insulin Correctional Sugar Inj) 0 unit SQ Q6HR [facility]; Protocol Last Admin: 05/05/18 18:59 Dose: 7 unit Insulin Detemir (Levemir Inj) 6 unit SQ [facility] Lactulose (Lactulose Liq) 30 ml PO DAILY PRN PRN Reason: SEVERE CONSITIPATION Mannitol (Mannitol Inj) 12.5 gm IV.PUSH UNSCH PRN PRN Reason: hypotension / volume replace Metoprolol Tartrate (Lopressor) 50 mg PO BID [facility] Last Admin: 05/05/18 08:08 Dose: 50 mg Midazolam HCl (Versed Inj) 2 mg IV.PUSH Q1H PRN PRN Reason: SEDATION Last Admin: 05/03/18 11:54 Dose: 2 mg Miscellaneous (Pill Splitter) 1 each OTHER UNSCH PRN PRN Reason: PILL SPLITTER Miscellaneous Medication () 1 each OROPHARYNG 0000,0400,1200,1600 [facility] Last Admin: 05/05/18 16:28 Dose: 1 each Nitroglycerin (Nitrostat Sl) 0.4 mg SL Q5M PRN PRN Reason: CHEST PAIN Ondansetron HCl (Zofran Inj) 4 mg IV.PUSH UNSCH PRN PRN Reason: NAUSEA OR VOMITING Ondansetron HCl (Zofran Inj) 4 mg IV.PUSH Q6H PRN PRN Reason: NAUSEA OR VOMITING Senna/Docusate Sodium (Fabienne-Colace) 1 tab PO BID [facility] Last Admin: 05/05/18 08:08 Dose: 1 tab Sennosides (Senokot) 17.2 mg PO Q12H PRN PRN Reason: Moderate Constipation Sodium Chloride (Ns Flush) 5 ml IV.FLUSH PRN PRN PRN Reason: flush each lumen during HD Sodium Chloride (Ns Flush) 2 ml IV.FLUSH BID [facility] Last Admin: 05/05/18 08:09 Dose: 2 ml Sodium Chloride (Ns Flush) 2 ml IV.FLUSH PRN PRN PRN Reason: FLUSH AFTER USING IV ACCESS Allergies/Adverse Reactions: Allergies Allergy/AdvReac Type Severity Reaction Status Date / Time codeine Allergy Hives Verified 05/02/18 19:45 iodine Allergy Hives Verified 05/02/18 19:45 lisinopril Allergy Hives Verified 05/02/18 19:45 Penicillins Allergy Hives Verified 05/02/18 19:45 vancomycin Allergy Hives Verified 05/02/18 19:45 Physical Exam Vital signs: Vital Signs 05/04/18 19:58 05/04/18 20:00 05/04/18 20:58 Temperature 99.1 F Pulse Rate 90 90 91 H Respiratory Rate 16 16 16 Blood Pressure 166/74 H 161/66 H Pulse Oximetry 96 97 97 05/04/18 21:00 05/04/18 21:20 05/04/18 21:59 Temperature Pulse Rate 91 H 79 Respiratory Rate 16 16 16 Blood Pressure 138/78 Pulse Oximetry 97 96 97 05/04/18 22:00 05/04/18 22:58 05/04/18 23:00 Temperature Pulse Rate 79 77 77 Respiratory Rate 16 16 16 Blood Pressure 159/72 H Pulse Oximetry 97 99 100 05/04/18 23:58 05/05/18 00:00 05/05/18 00:38 Temperature 100.9 F H Pulse Rate 76 76 Respiratory Rate 16 19 16 Blood Pressure 158/70 H Pulse Oximetry 99 99 99 05/05/18 00:58 05/05/18 01:00 05/05/18 01:58 Temperature Pulse Rate 75 75 79 Respiratory Rate 16 16 16 Blood Pressure 151/67 H 158/71 H Pulse Oximetry 99 98 98 05/05/18 02:00 05/05/18 02:58 05/05/18 03:00 Temperature Pulse Rate 79 80 80 Respiratory Rate 16 16 16 Blood Pressure 152/67 H Pulse Oximetry 98 98 98 05/05/18 03:58 05/05/18 04:00 05/05/18 04:14 Temperature 100.3 F H Pulse Rate 79 79 Respiratory Rate 17 17 16 Blood Pressure 150/67 H Pulse Oximetry 97 97 97 05/05/18 04:58 05/05/18 05:00 05/05/18 05:58 Temperature Pulse Rate 77 77 77 Respiratory Rate 16 16 17 Blood Pressure 147/63 H 151/67 H Pulse Oximetry 97 97 98 05/05/18 06:00 05/05/18 06:58 05/05/18 07:00 Temperature Pulse Rate 77 81 81 Respiratory Rate 16 16 16 Blood Pressure 166/72 H Pulse Oximetry 98 97 97 05/05/18 08:00 05/05/18 09:01 05/05/18 09:08 Temperature 100.4 F H Pulse Rate 85 81 Respiratory Rate 16 16 16 Blood Pressure 175/71 H 174/73 H Pulse Oximetry 97 97 97 05/05/18 10:00 05/05/18 10:02 05/05/18 11:00 Temperature Pulse Rate 74 74 76 Respiratory Rate 16 16 16 Blood Pressure 161/70 H Pulse Oximetry 96 96 97 05/05/18 11:02 05/05/18 12:00 05/05/18 12:02 Temperature 100.4 F H Pulse Rate 75 76 76 Respiratory Rate 16 16 16 Blood Pressure 164/72 H 169/71 H Pulse Oximetry 97 97 97 05/05/18 13:00 05/05/18 13:02 05/05/18 13:20 Temperature Pulse Rate 78 78 Respiratory Rate 16 16 16 Blood Pressure 173/72 H Pulse Oximetry 97 97 97 05/05/18 13:43 05/05/18 13:45 05/05/18 13:58 Temperature Pulse Rate 81 81 84 Respiratory Rate 16 16 16 Blood Pressure 181/74 H 187/78 H 191/79 H Pulse Oximetry 98 98 97 05/05/18 14:00 05/05/18 14:13 05/05/18 14:28 Temperature Pulse Rate 84 84 84 Respiratory Rate 16 17 16 Blood Pressure 197/82 H 199/81 H Pulse Oximetry 97 97 97 05/05/18 14:43 05/05/18 14:58 05/05/18 15:00 Temperature Pulse Rate 83 82 82 Respiratory Rate 16 16 16 Blood Pressure 194/79 H 185/75 H Pulse Oximetry 97 95 94 L 05/05/18 15:13 05/05/18 15:28 05/05/18 15:43 Temperature Pulse Rate 78 79 85 Respiratory Rate 16 16 16 Blood Pressure 188/72 H 187/77 H 188/74 H Pulse Oximetry 94 L 93 L 93 L 05/05/18 15:58 05/05/18 16:00 05/05/18 16:13 Temperature 99.6 F Pulse Rate 92 H 93 H 94 H Respiratory Rate 16 16 16 Blood Pressure 183/73 H 191/71 H Pulse Oximetry 93 L 93 L 93 L 05/05/18 16:28 05/05/18 16:31 05/05/18 17:00 Temperature Pulse Rate 86 85 86 Respiratory Rate 16 16 16 Blood Pressure 185/77 H 179/73 H 172/70 H Pulse Oximetry 94 L 94 L 94 L 05/05/18 18:00 05/05/18 18:01 Temperature Pulse Rate 85 Respiratory Rate 16 16 Blood Pressure 170/72 H Pulse Oximetry 95 95 Intake & Output 05/05/18 05/05/18 05/06/18 06:59 18:59 06:59 Intake Total 675 / 675 749 / 749 Balance 675 / 675 749 / 749 Weight 122.47 kg Intake: IV 222 / 222 227 / 227 NovoLIN R (IV Infusion) 100 75 / 75 UNIT In NS Inj 99 ML @ Per Protocol IV.CONT TITRATE PRN Rx #:[id number] Cerebyx Inj 100 MGPE In NS Inj 52 / 52 52 / 52 50 ML @ 208 mls/hr IV.SIG Q8HR NURY Rx#:[id number] Cerebyx Inj 1,000 MGPE In NS 70 / 70 Inj 50 ML @ 280 mls/hr IV.SIG ONCE ONE Rx#:[id number] Keppra 1000 mg/100 mL Premix 100 / 100 100 / 100 100 ML @ 400 mls/hr IV.SIG Q8HR NURY Rx#:[id number] Oral 120 / 120 Tube Feeding 333 / 333 372 / 372 Tube Irrigant 150 / 150 Other: # Bowel Movements 0 0 - Routine Neurological Exam nonresponsive to voice or sternal rub Pupils 1 mm bilateral Minimal EOm No spontaneous limb movement, no withdrawal, no posturing - Urinary Catheter Management Indwelling Urethral Catheter Cath placed during this visit: no Objective Laboratory Results - last 24 hr 05/04/18 05/04/18 05/04/18 19:58 20:59 22:02 WBC RBC Hgb Hct MCV MCH MCHC RDW Plt Count MPV Neut % (Auto) Lymph % (Auto) Arroyo % (Auto) Eos % (Auto) Baso % (Auto) Neut # (Auto) Lymph # (Auto) Arroyo # (Auto) Eos # (Auto) Baso # (Auto) WBC Differential Differential Comment Sodium Potassium Chloride Carbon Dioxide Anion Gap BUN Creatinine Estimated GFR POC Glucose 230 H 200 H 187 H Random Glucose Calcium Phosphorus Albumin Phenytoin 05/04/18 05/05/18 05/05/18 23:11 00:01 01:04 WBC RBC Hgb Hct MCV MCH MCHC RDW Plt Count MPV Neut % (Auto) Lymph % (Auto) Arroyo % (Auto) Eos % (Auto) Baso % (Auto) Neut # (Auto) Lymph # (Auto) Arroyo # (Auto) Eos # (Auto) Baso # (Auto) WBC Differential Differential Comment Sodium Potassium Chloride Carbon Dioxide Anion Gap BUN Creatinine Estimated GFR POC Glucose 181 H 178 H 179 H Random Glucose Calcium Phosphorus Albumin Phenytoin 05/05/18 05/05/18 05/05/18 02:40 03:06 04:13 WBC RBC Hgb Hct MCV MCH MCHC RDW Plt Count MPV Neut % (Auto) Lymph % (Auto) Arroyo % (Auto) Eos % (Auto) Baso % (Auto) Neut # (Auto) Lymph # (Auto) Arroyo # (Auto) Eos # (Auto) Baso # (Auto) WBC Differential Differential Comment Sodium 138 Potassium 4.7 Chloride 98 Carbon Dioxide 26.9 Anion Gap 13 BUN 62 H Creatinine 8.20 H Estimated GFR 5 L POC Glucose 201 H 209 H Random Glucose 203 H Calcium 9.0 Phosphorus 6.2 H D Albumin 2.9 L Phenytoin 7.9 L 05/05/18 05/05/18 05/05/18 04:13 04:20 05:10 WBC 12.6 H RBC 3.93 L Hgb 10.9 L Hct 33.8 L MCV 85.9 MCH 27.8 MCHC 32.3 RDW 18.8 H Plt Count 260 MPV 8.4 Neut % (Auto) 85.4 H Lymph % (Auto) 5.1 L Arroyo % (Auto) 9.1 H Eos % (Auto) 0.0 Baso % (Auto) 0.4 Neut # (Auto) 10.8 H Lymph # (Auto) 0.6 L Arroyo # (Auto) 1.1 H Eos # (Auto) 0.0 Baso # (Auto) 0.0 WBC Differential . Differential Comment Auto diff final Sodium Potassium Chloride Carbon Dioxide Anion Gap BUN Creatinine Estimated GFR POC Glucose 201 H 194 H Random Glucose Calcium Phosphorus Albumin Phenytoin 05/05/18 05/05/18 05/05/18 05:59 06:55 08:02 WBC RBC Hgb Hct MCV MCH MCHC RDW Plt Count MPV Neut % (Auto) Lymph % (Auto) Arroyo % (Auto) Eos % (Auto) Baso % (Auto) Neut # (Auto) Lymph # (Auto) Arroyo # (Auto) Eos # (Auto) Baso # (Auto) WBC Differential Differential Comment Sodium Potassium Chloride Carbon Dioxide Anion Gap BUN Creatinine Estimated GFR POC Glucose 206 H 173 H 180 H Random Glucose Calcium Phosphorus Albumin Phenytoin 05/05/18 05/05/18 05/05/18 09:45 10:58 12:10 WBC RBC Hgb Hct MCV MCH MCHC RDW Plt Count MPV Neut % (Auto) Lymph % (Auto) Arroyo % (Auto) Eos % (Auto) Baso % (Auto) Neut # (Auto) Lymph # (Auto) Arroyo # (Auto) Eos # (Auto) Baso # (Auto) WBC Differential Differential Comment Sodium Potassium Chloride Carbon Dioxide Anion Gap BUN Creatinine Estimated GFR POC Glucose 186 H 176 H 170 H Random Glucose Calcium Phosphorus Albumin Phenytoin 05/05/18 05/05/18 14:01 18:50 WBC RBC Hgb Hct MCV MCH MCHC RDW Plt Count MPV Neut % (Auto) Lymph % (Auto) Arroyo % (Auto) Eos % (Auto) Baso % (Auto) Neut # (Auto) Lymph # (Auto) Arroyo # (Auto) Eos # (Auto) Baso # (Auto) WBC Differential Differential Comment Sodium Potassium Chloride Carbon Dioxide Anion Gap BUN Creatinine Estimated GFR POC Glucose 164 H 275 H Random Glucose Calcium Phosphorus Albumin Phenytoin Diagnostic Tests: EEG----there is much muscle artifact, but EEG that can be visualized outside of the artifact is consistent with electrocerebra silence. No burst suppression or epileptiform discharges are present Review/Management - Review/Management Plan: severe anoxic encephalopathhy--prognosis extremely poor
[2018-05-05] MEDS ORDERED: Insulin Detemir Inj 1,000 UNIT/10 ML Vial SQ SCH (21:00)
[2018-05-06] MEDS: Oral Hygiene Kit OROPHARYNG SCH ×4 (00:07→17:15)
[2018-05-06] MEDS: Insulin NovoLOG Aspart Correctional Sugar Inj SQ SCH ×4 (01:18→18:30)
[2018-05-06] MEDS: hydrALAZINE HCl Inj 20 MG/ML Vial IV.PUSH PRN ×2 (02:26→06:48)
[2018-05-06] MEDS: Fosphenytoin Inj 100 MGPE in Sodium Chlor 0.9% Inj 50 ML IV.SIG SCH ×2 (05:14→16:57)
[2018-05-06] MEDS: Heparin - SQ 10,000 UNITS/ML Vial SQ SCH ×2 (05:15→11:52)
[2018-05-06] MEDS: Chlorhexidine Gluconate 2% 1 Pack (2 Cloths) TOPICAL SCH (05:15)
[2018-05-06] MEDS: levETIRAcetam 1000mg/100mL Inj 100 ML IV.SIG SCH ×2 (05:17→15:45)
[2018-05-06 05:58] LABS: Calcium 9.1 mg/dL (8.5-10.1); Carbon Dioxide 26.2 meq/L (21.0-32.0); Phosphorus 6.5 mg/dL (2.5-4.9); Potassium 4.7 meq/L (3.5-5.1)
[2018-05-06] MEDS: amLODIPine 10 MG Tablet PO SCH (08:47)
[2018-05-06] MEDS: Senna/Docusate Sodium 8.6/50 MG Tablet PO SCH (08:47)
[2018-05-06] MEDS: Metoprolol Tartrate 50 MG Tablet PO SCH (08:48)
[2018-05-06] MEDS: Chlorhexidine 0.12% Oral Kit 15 ML UDC OROPHARYNG SCH (08:48)
[2018-05-06] MEDS: Famotidine PF Inj 20 MG/2 ML Vial IV.PUSH SCH (08:51)
--- NOTE | 2018-05-06 09:37 | P.PNCC ---
Subjective Subjective Remarks/Hospital Course: Approximately 47-year-old unfortunate female presents status post cardiac arrest. She was in asystole and given 1 epinephrine and had spontaneous return of circulation with an adequate blood pressure. She was intubated with good end -tidal CO2. It was a witnessed cardiac arrest with family performing immediate CPR prior to EMS arrival. History limited given clinical acuity. 05/03: Posturing only. HD today. Appears to have severe anoxic brain injury. 05/04: No change in neurologic function. Continues with severely impaired neuro. MRI not diagnostic. 05/05: Remains in coma. Burst suppression pattern on EEG. Dilantin added. CODE STATUS is now DNR. Improvement in neurologic function is highly unlikely at this point. We will continue discussed with the family. 05/06: EEG is consistent with severe anoxic brain injury. There is no chance for meaningful recovery in this patient. We will continue discussing with family the options for care at this point. Objective Vital Signs / I&O: Vital Signs 05/05/18 10:00 05/05/18 10:02 05/05/18 11:00 Temperature Pulse Rate 74 74 76 Respiratory Rate 16 16 16 Blood Pressure 161/70 H Pulse Oximetry 96 96 97 05/05/18 11:02 05/05/18 12:00 05/05/18 12:02 Temperature 100.4 F H Pulse Rate 75 76 76 Respiratory Rate 16 16 16 Blood Pressure 164/72 H 169/71 H Pulse Oximetry 97 97 97 05/05/18 13:00 05/05/18 13:02 05/05/18 13:20 Temperature Pulse Rate 78 78 Respiratory Rate 16 16 16 Blood Pressure 173/72 H Pulse Oximetry 97 97 97 05/05/18 13:43 05/05/18 13:45 05/05/18 13:58 Temperature Pulse Rate 81 81 84 Respiratory Rate 16 16 16 Blood Pressure 181/74 H 187/78 H 191/79 H Pulse Oximetry 98 98 97 05/05/18 14:00 05/05/18 14:13 05/05/18 14:28 Temperature Pulse Rate 84 84 84 Respiratory Rate 16 17 16 Blood Pressure 197/82 H 199/81 H Pulse Oximetry 97 97 97 05/05/18 14:43 05/05/18 14:58 05/05/18 15:00 Temperature Pulse Rate 83 82 82 Respiratory Rate 16 16 16 Blood Pressure 194/79 H 185/75 H Pulse Oximetry 97 95 94 L 05/05/18 15:13 05/05/18 15:28 05/05/18 15:43 Temperature Pulse Rate 78 79 85 Respiratory Rate 16 16 16 Blood Pressure 188/72 H 187/77 H 188/74 H Pulse Oximetry 94 L 93 L 93 L 05/05/18 15:58 05/05/18 16:00 05/05/18 16:13 Temperature 99.6 F Pulse Rate 92 H 93 H 94 H Respiratory Rate 16 16 16 Blood Pressure 183/73 H 191/71 H Pulse Oximetry 93 L 93 L 93 L 05/05/18 16:28 05/05/18 16:31 05/05/18 17:00 Temperature Pulse Rate 86 85 86 Respiratory Rate 16 16 16 Blood Pressure 185/77 H 179/73 H 172/70 H Pulse Oximetry 94 L 94 L 94 L 05/05/18 18:00 05/05/18 18:01 05/05/18 19:00 Temperature 100.8 F H Pulse Rate 85 84 Respiratory Rate 16 16 15 Blood Pressure 170/72 H 164/70 H Pulse Oximetry 95 95 95 05/05/18 20:00 05/05/18 21:00 05/05/18 22:00 Temperature Pulse Rate 83 81 75 Respiratory Rate 16 16 16 Blood Pressure 166/104 H 158/68 H 158/67 H Pulse Oximetry 96 96 97 05/05/18 23:00 05/06/18 00:00 05/06/18 00:06 Temperature 99.7 F H Pulse Rate 74 73 Respiratory Rate 16 16 16 Blood Pressure 154/67 H 160/66 H Pulse Oximetry 96 93 L 94 L 05/06/18 01:00 05/06/18 02:00 05/06/18 03:00 Temperature Pulse Rate 78 79 81 Respiratory Rate 20 16 16 Blood Pressure 173/72 H 174/72 H 170/72 H Pulse Oximetry 97 96 96 05/06/18 03:56 05/06/18 04:00 05/06/18 05:00 Temperature 97.9 F Pulse Rate 85 81 Respiratory Rate 16 16 16 Blood Pressure 172/70 H 157/67 H Pulse Oximetry 96 97 96 05/06/18 06:00 05/06/18 06:04 05/06/18 07:00 Temperature Pulse Rate 82 84 86 Respiratory Rate 16 17 16 Blood Pressure 188/78 H 176/75 H 178/74 H Pulse Oximetry 96 96 96 05/06/18 08:00 Temperature 100.2 F H Pulse Rate 92 H Respiratory Rate 17 Blood Pressure 185/76 H Pulse Oximetry 93 L Intake & Output 05/05/18 05/06/18 05/06/18 18:59 06:59 18:59 Intake Total 749 / 749 494 / 494 Balance 749 / 749 494 / 494 Intake: IV 227 / 227 304 / 304 NovoLIN R (IV Infusion) 100 75 / 75 UNIT In NS Inj 99 ML @ Per Protocol IV.CONT TITRATE PRN Rx #:[id number] Cerebyx Inj 100 MGPE In NS Inj 52 / 52 104 / 104 50 ML @ 208 mls/hr IV.SIG Q8HR NURY Rx#:[id number] Keppra 1000 mg/100 mL Premix 100 / 100 200 / 200 100 ML @ 400 mls/hr IV.SIG Q8HR NURY Rx#:[id number] Tube Feeding 372 / 372 190 / 190 Tube Irrigant 150 / 150 Other: # Bowel Movements 0 Result Diagrams: 05/05/18 04:13 05/06/18 04:57 Objective Remarks: - Constitutional profound neurological impairment Comments: No movement, unresponsive to verbal or painful stimuli - Routine HEENT Exam Head: Present: normocephalic, atraumatic Eye: Present: PERRL, normal accommodation ENT: Present: mucous membranes moist - Routine Neck Exam Present: supple, full ROM. Absent: JVD, carotid bruit - Routine Chest/Breast/Axilla Exam Chest wall: Absent: tenderness - Routine Respiratory Exam Present: patient mechanically ventilated. Good jasmyn air movement on ventilator. - Routine Cardiovascular Exam Present: RRR, S1, S2, no JVD - Routine Abdominal Exam Present: soft, normoactive bowel sounds. Absent: tenderness, distended - Routine Extremities Exam S/P right BKA Absent: cyanosis, clubbing, edema - Routine Skin Exam Present: intact. Absent: cyanosis, erythema - Routine Neurological Exam Patient remains comatose with occasional myoclonic jerks and posturing, extension to painful stimuli in upper extremities. Assessment and Plan - Assessment and Plan Plan: Respiratory failure -Intubated for an airway protection -Vent bundle -DuoNeb scheduled and as needed -SBTs daily Cardiac arrest -Unclear etiology -Series of troponins and EKGs to rule out acute coronary syndrome -Monitor for normothermia -Patient in need of emergent hemodialysis, benefit of therapeutic hypothermia and hypothermia catheter placement inferior to urgency of hemodialysis -> done, scheduled End-stage renal disease -Hemodialysis per nephrology Diabetes mellitus -Insulin drip, converted to levemir and SSI 05/03, increase Levemir again Altered mental status -Status post cardiac arrest -Clinical signs of anoxic brain damage -EEG to rule out seizure -severe brain injury -Neurology evaluation, seen -Palliative care consult -No improvement in neurologic function. -Persistent burst suppression pattern on EEG DVT GI prophylaxis -Teds SCDs -Subcu heparin -Pepcid Overall impression: Critically ill with unstable neurological status and ventilator dependence. Respiratory effort unsatisfactory to attempt weaning from ventilator. Neurological status remains unstable. Prognosis is quite poor and it is impractical to speculate she would have any type of meaningful neurological recovery. Critical care 38 minutes Update: The patient has severe neurologic injury as documented by scans and. By physical examination she is now Neftali Coma Scale 3T. Family has decided that they would like to withdraw all artificial support and let nature take its course. They fully understand that she will without artificial support. We have answered all of their questions and explained in detail the nature of an anoxic brain injury. They choose to not be in the room and we withdraw artificial support.
--- NOTE | 2018-05-06 10:14 | P.PNPAL ---
Called mother, Mell and brother, Geovanni via telephone to provide update including MRI brain and recent EEG results. Family verbalizes understanding of chances of meaningful recovery are poor. They feel lAba would not find this quality of life acceptable. They are gathering as a family at the hospital today early afternoon and I anticipate they will transition to comfort measures with compassionate withdrawal of life support. I have provided anticipatory guidance. Exhibits are on chart, nurse and Blaze Willard are aware. Dr. Thakur will write orders if family decides to proceed today. Emailed nurseVandana [facility] information as mother indicates she will need financial assistance with cremation. Questions answered. Discussed with nurse and Dr. Thakur.
--- NOTE | 2018-05-06 12:41 | P.PNNP ---
Subjective Interval history: On ventilator, eyes open, not following commands. <Danisha Merida - Last Filed: 05/06/18 12:35> Physical Exam Vital signs: Vital Signs 05/05/18 13:00 05/05/18 13:02 05/05/18 13:20 Temperature Pulse Rate 78 78 Respiratory Rate 16 16 16 Blood Pressure 173/72 H Pulse Oximetry 97 97 97 05/05/18 13:43 05/05/18 13:45 05/05/18 13:58 Temperature Pulse Rate 81 81 84 Respiratory Rate 16 16 16 Blood Pressure 181/74 H 187/78 H 191/79 H Pulse Oximetry 98 98 97 05/05/18 14:00 05/05/18 14:13 05/05/18 14:28 Temperature Pulse Rate 84 84 84 Respiratory Rate 16 17 16 Blood Pressure 197/82 H 199/81 H Pulse Oximetry 97 97 97 05/05/18 14:43 05/05/18 14:58 05/05/18 15:00 Temperature Pulse Rate 83 82 82 Respiratory Rate 16 16 16 Blood Pressure 194/79 H 185/75 H Pulse Oximetry 97 95 94 L 05/05/18 15:13 05/05/18 15:28 05/05/18 15:43 Temperature Pulse Rate 78 79 85 Respiratory Rate 16 16 16 Blood Pressure 188/72 H 187/77 H 188/74 H Pulse Oximetry 94 L 93 L 93 L 05/05/18 15:58 05/05/18 16:00 05/05/18 16:13 Temperature 99.6 F Pulse Rate 92 H 93 H 94 H Respiratory Rate 16 16 16 Blood Pressure 183/73 H 191/71 H Pulse Oximetry 93 L 93 L 93 L 05/05/18 16:28 05/05/18 16:31 05/05/18 17:00 Temperature Pulse Rate 86 85 86 Respiratory Rate 16 16 16 Blood Pressure 185/77 H 179/73 H 172/70 H Pulse Oximetry 94 L 94 L 94 L 05/05/18 18:00 05/05/18 18:01 05/05/18 19:00 Temperature 100.8 F H Pulse Rate 85 84 Respiratory Rate 16 16 15 Blood Pressure 170/72 H 164/70 H Pulse Oximetry 95 95 95 05/05/18 20:00 05/05/18 21:00 05/05/18 22:00 Temperature Pulse Rate 83 81 75 Respiratory Rate 16 16 16 Blood Pressure 166/104 H 158/68 H 158/67 H Pulse Oximetry 96 96 97 05/05/18 23:00 05/06/18 00:00 05/06/18 00:06 Temperature 99.7 F H Pulse Rate 74 73 Respiratory Rate 16 16 16 Blood Pressure 154/67 H 160/66 H Pulse Oximetry 96 93 L 94 L 05/06/18 01:00 05/06/18 02:00 05/06/18 03:00 Temperature Pulse Rate 78 79 81 Respiratory Rate 20 16 16 Blood Pressure 173/72 H 174/72 H 170/72 H Pulse Oximetry 97 96 96 05/06/18 03:56 05/06/18 04:00 05/06/18 05:00 Temperature 97.9 F Pulse Rate 85 81 Respiratory Rate 16 16 16 Blood Pressure 172/70 H 157/67 H Pulse Oximetry 96 97 96 05/06/18 06:00 05/06/18 06:04 05/06/18 07:00 Temperature Pulse Rate 82 84 86 Respiratory Rate 16 17 16 Blood Pressure 188/78 H 176/75 H 178/74 H Pulse Oximetry 96 96 96 05/06/18 08:00 05/06/18 09:00 05/06/18 09:44 Temperature 100.2 F H Pulse Rate 92 H 90 Respiratory Rate 17 16 16 Blood Pressure 185/76 H 182/72 H Pulse Oximetry 93 L 91 L 97 05/06/18 10:00 Temperature Pulse Rate 75 Respiratory Rate 18 Blood Pressure 159/67 H Pulse Oximetry 97 Intake & Output 05/05/18 05/06/18 05/06/18 18:59 06:59 18:59 Intake Total 749 / 749 494 / 494 Balance 749 / 749 494 / 494 Intake: IV 227 / 227 304 / 304 NovoLIN R (IV Infusion) 100 75 / 75 UNIT In NS Inj 99 ML @ Per Protocol IV.CONT TITRATE PRN Rx #:[id number] Cerebyx Inj 100 MGPE In NS Inj 52 / 52 104 / 104 50 ML @ 208 mls/hr IV.SIG Q8HR NURY Rx#:[id number] Keppra 1000 mg/100 mL Premix 100 / 100 200 / 200 100 ML @ 400 mls/hr IV.SIG Q8HR NURY Rx#:[id number] Tube Feeding 372 / 372 190 / 190 Tube Irrigant 150 / 150 Other: # Bowel Movements 0 Narrative: GENERAL: Well-nourished, well-developed intubated patient. SKIN: Warm and dry NECK: Supple, trachea midline. No JVD or lymphadenopathy. CARDIOVASCULAR: Regular rate and rhythm without murmurs, gallops, or rubs. RESPIRATORY: Breath sounds coarse breath sounds and bilateral rhonchi. GASTROINTESTINAL: Abdomen soft, non-tender, nondistended. EXTREMITIES: Right below-knee amputation left leg mild edema - Urinary Catheter Management Indwelling Urethral Catheter Cath placed during this visit: no <Danisha Merida - Last Filed: 05/06/18 12:35> - Urinary Catheter Management Indwelling Urethral Catheter Cath placed during this visit: no <Anirudh Whitney - Last Filed: 05/08/18 21:17> Assessment and Plan - Assessment (1) End stage renal disease on dialysis Code(s): N18.6 - End stage renal disease; Z99.2 - Dependence on renal dialysis Status: Acute (2) Diabetes Code(s): E11.9 - Type 2 diabetes mellitus without complications Status: Acute - Plan 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 <Danisha Merida - Last Filed: 05/06/18 12:35> - Assessment (1) End stage renal disease on dialysis Code(s): N18.6 - End stage renal disease; Z99.2 - Dependence on renal dialysis Status: Acute (2) Diabetes Code(s): E11.9 - Type 2 diabetes mellitus without complications Status: Acute - Plan Patient seen and examined, agree with above. Palliative care following, possible with drawl of treatment. <Anirudh Whitney - Last Filed: 05/08/18 21:17>
[2018-05-06 15:10] VITALS: O2SAT 97
[2018-05-06] MEDS ORDERED: fentaNYL 10 mcg/mL Premix Drip 2,500 MCG/250 ML BAG IV.SIG PRN (15:29)
[2018-05-06] MEDS ORDERED: fentaNYL Citrate Inj 100 MCG/2 ML Ampul IV.PUSH ONE (15:29)
[2018-05-06] MEDS ORDERED: HYDROmorphone PF Inj 4 MG/ML Ampul IV.PUSH PRN (15:31)
[2018-05-06 16:33] VITALS: BP 183/78; PULSE 87; RESP 23; TEMP 100.2
--- NOTE | 2018-05-07 07:08 | P.DS ---
Date of admission: 05/02/18 18:44 Primary care physician: UNKNOWN Attending physician on discharge: Sriram Thakur Brief History from admission: Approximately 47-year-old unfortunate female presents status post cardiac arrest. She was in asystole and given 1 epinephrine and had spontaneous return of circulation with an adequate blood pressure. She was intubated with good end -tidal CO2. It was a witnessed cardiac arrest with family performing immediate CPR prior to EMS arrival. History limited given clinical acuity. Patient update on day of discharge: Physical exam and all testing confirms severe anoxic brain injury with likely permanent Glascow coma scale 3T. Family unit unanimously elected for the cessation of artificial support. The patient shortly thereafter at 1745 hours of cardiac standstill. Family was not present and was notified by phone. DS: Diagnosis - Discharge Diagnosis (1) Acute respiratory failure Status: Acute (2) Coma Status: Acute (3) Cardiac arrest Status: Acute (4) Cardiac asystole Status: Acute (5) End stage renal disease on dialysis Status: Acute (6) Hyperkalemia Status: Acute (7) Myoclonus Status: Acute DS: Summary Hospital Course: Approximately 47-year-old unfortunate female presents status post cardiac arrest. She was in asystole and given 1 epinephrine and had spontaneous return of circulation with an adequate blood pressure. She was intubated with good end -tidal CO2. It was a witnessed cardiac arrest with family performing immediate CPR prior to EMS arrival. History limited given clinical acuity. 05/03: Posturing only. HD today. Appears to have severe anoxic brain injury. 05/04: No change in neurologic function. Continues with severely impaired neuro. MRI not diagnostic. 05/05: Remains in coma. Burst suppression pattern on EEG. Dilantin added. CODE STATUS is now DNR. Improvement in neurologic function is highly unlikely at this point. We will continue discussed with the family. 05/06: EEG is consistent with severe anoxic brain injury. There is no chance for meaningful recovery in this patient. We will continue discussing with family the options for care at this point. - Time Spent with Patient Total time spent providing and/or coordinating discharge services: Greater than 30 minutes - Quality: VTE Deep Vein Thrombosis/Pulmonary Embolism Present on Admission: No Exam Vital signs: Vital Signs 05/06/18 08:00 05/06/18 09:00 05/06/18 09:44 Temperature 100.2 F H Pulse Rate 92 H 90 Respiratory Rate 17 16 16 Blood Pressure 185/76 H 182/72 H Pulse Oximetry 93 L 91 L 97 05/06/18 10:00 05/06/18 11:00 05/06/18 12:00 Temperature 100.4 F H Pulse Rate 75 79 81 Respiratory Rate 18 21 24 Blood Pressure 159/67 H 162/69 H 165/72 H Pulse Oximetry 97 95 95 05/06/18 13:00 05/06/18 14:00 05/06/18 15:00 Temperature Pulse Rate 82 85 86 Respiratory Rate 16 26 H 29 H Blood Pressure 172/70 H 171/70 H 182/75 H Pulse Oximetry 95 97 97 05/06/18 16:00 Temperature 100.2 F H Pulse Rate 87 Respiratory Rate 23 Blood Pressure 183/78 H Pulse Oximetry 97 Narrative: Results Procedures completed during hospitalization: See summary. Labs on day of discharge: Labs from last 24 hours 05/06/18 11:55 POC Glucose 219 H - Impressions ITS Impressions Chest X-Ray 05/02/18 18:16 CONCLUSION: 1. ET tube is 1.5 cm above the nicola and needs withdrawn 1 cm. 2. Diffuse airspace opacities throughout both lungs. Head MRI 05/04/18 00:00 CONCLUSION: 1. No acute intracranial abnormality. 2. Mild mucosal thickening is noted within the bilateral sphenoid sinuses, bilateral ethmoid air cells and right maxillary sinus. Discharge Plan - Discharge Disposition Patient Disposition: 20 - Discharge Details Date/Time: 05/06/18 17:45 - Physicians Team Primary Care Provider: UNKNOWN, Attending Provider: Jeremy Blount Other Providers: Michael Giron MD, PhD ; Lena Pérez MD ; [employer]
--- NOTE | 2018-05-07 11:29 | P.PNPAL ---
Call from brother, Geovanni Arreola to ask if patient . I explained TOD at 1745 according to EMR and that nurses attempted to call with no answer. He voiced appreciation. Offered condolences.
== END 2018-05-06 19:00 | disposition expired | DRG 207 ==
LOC: NEPC 18:02 → EDBD 18:44 → NEDA 18:44 → N03 22:09
PROVIDERS: ADMIT Internal Medicine Critical Care Medicine; ATTEND Internal Medicine Critical Care Medicine
CPT/HCPCS: 36600; 70551; 71010; 71045; 80048; 80053; 80069; 80074; 80185; 80307; 82550; 82805; 82948; 82962; 83605; 83735; 84100; 84484; 85025; 85610; 85730; 86850; 86900; 86901; 87641; 90774; 90775; 90784; 90935; 92950; 93005; 94002; 94003; 94640; 94656; 94657; 94664; 94665; 95819; 96374; 96375; 97110; 97162; 99291; C8952; C9238; J0171; J0360; J0886; J1170; J1580; J1644; J1815; J1817; J1953; J2250; J2405; J3010; J7030; Q2009; Q4055; Q4081